=== PATIENT | female | born 1960 | race Caucasian/White ===

== ENCOUNTER → 2016-12-15 | Outpatient (CLI) | payer OTHER ==
[~2016-12-15] MED LIST: ASPI325T PO; BACT800T5 PO; CIPR500T89 PO; COLA100C PO; DEPA500T2 PO; FAMO1TAB11 PO; GABA-279 PO; GABA100C PO; LEVO150T42 PO; LORA10TA2 PO; METAMUCIL; METR500T10 PO; MILKSUS PO; NEUR100C PO; NORT10CA2 PO; NORT25CA2; NORT25CA2 PO; NYSTATIN; No Historical Meds; ONDA4TAB6 PO; PAME50CA PO; PERC5TAB6 PO; PERCOCET PO; PHEN200T14 PO; PRED20TA PO; SENO8.6T5; SYNT125T PO; TUMS500C PO; TYLE325T5 PO; VICO5TAB
[2016-12-15 18:11] LABS: ALBUMIN 3.7 GM/DL (3.2-5.2); ALBUMIN/GLOBULIN RATIO 1.16 (1.00-1.93); ALKALINE PHOSPHATASE 120 U/L (45-117); ALT/SGPT 36 U/L (12-78); ANION GAP 8 MEQ/L (8-16); AST/SGOT 19 U/L (15-37); BILIRUBIN,TOTAL 0.3 MG/DL (0.2-1.0); BLOOD UREA NITROGEN 9 MG/DL (7-18); CALCIUM LEVEL 8.7 MG/DL (8.5-10.1); CARBON DIOXIDE LEVEL 30 MEQ/L (21-32); CHLORIDE LEVEL 108 MEQ/L (98-107); CREATININE FOR GFR 0.76 MG/DL (0.55-1.02); GLOMERULAR FILTRATION RATE > 60.0 (>51); GLUCOSE, FASTING 74 MG/DL (70-105); POTASSIUM SERUM 3.9 MEQ/L (3.5-5.1); SODIUM LEVEL 146 MEQ/L (136-145); TOTAL PROTEIN 6.9 GM/DL (6.4-8.2)
[2016-12-15 18:22] LABS: FOLATE 7.6 NG/ML (>5.4); VITAMIN B12 LEVEL 582 PG/ML (247-911)
[2016-12-15 19:48] LABS: BASO # 0.1 K/mm3 (0.0-0.2); BASO % 1.1 % (0.0-1.0); EOS # 0.1 K/mm3 (0.0-0.50); EOS % 2.3 % (0.0-3.0); LARGE UNSTAINED CELL # 0.1 K/mm3 (0.0-0.4); LARGE UNSTAINED CELL % 1.4 % (0.0-4.0); LYMPH % 29.4 % (24.0-44.0); MEAN CORPUSCULAR HEMOGLOBIN 33.2 pg (27.0-33.0); MEAN CORPUSCULAR HGB CONC 32.1 g/dl (32.0-36.5); MEAN CORPUSCULAR VOLUME 103.6 fl (80.0-96.0); MONO # 0.4 K/mm3 (0.0-0.8); MONO % 5.8 % (0.0-5.0); NEUTROPHILS # 3.8 K/mm3 (1.8-7.7); PLATELET COUNT, AUTOMATED 202 k/mm3 (150-450); RED CELL DISTRIBUTION WIDTH 12.2 % (11.5-14.5); WHITE BLOOD COUNT 6.4 K/mm3 (4.0-10.0)
[2016-12-15 22:19] LABS: ERYTHROCYTE SEDIMENTATION RATE 3 mm/hr (0-30)
[2016-12-17 11:05] LABS: ALBUMIN 4.19 GM/DL (3.29-5.55); ALBUMIN % 60.7 % (55.8-66.1); GAMMA GLOBULIN % 12.6 % (11.1-18.8)
[2016-12-17 14:16] LABS: Lyme Disease IgG/IgM Antibodie <0.91 ISR (0.00-0.90); Lyme Disease IgM Ab Quantitati <0.80 index (0.00-0.79); SJOGREN'S ANTI SS-A <0.2 AI (0.0-0.9); SJOGREN'S ANTI SS-B 0.3 AI (0.0-0.9)
== END ==
LOC: M WUC 12:25
PROVIDERS: ATTEND Physician Assistant Medical
DX: R51 Headache (principal); M79.1 Myalgia; R20.2 Paresthesia of skin

== ENCOUNTER → 2016-12-15 | Outpatient (REF) | payer OTHER | LOC: M LAB REF 12:53 | PROVIDERS: ATTEND Otolaryngology | DX: J31.2 Chronic pharyngitis (principal) ==

== ENCOUNTER → 2017-05-18 | Outpatient (CLI) | payer OTHER ==
[~2017-05-18] MED LIST changes: +CIPR-249 PO; -CIPR500T89 PO; -COLA100C PO; +COLA100C5 PO; +METR1TAB66 PO; -METR500T10 PO; +PERC5TAB12 PO; -PERC5TAB6 PO; +PHEN-501 PO; -PHEN200T14 PO
[2017-05-18 09:13] LABS: BASO % 0.7 % (0.0-1.0); EOS # 0.2 K/mm3 (0.0-0.50); LYMPH # 2.2 K/mm3 (1.5-4.5); LYMPH % 31.7 % (24.0-44.0); MEAN CORPUSCULAR HEMOGLOBIN 34.5 pg (27.0-33.0); MEAN CORPUSCULAR HGB CONC 34.3 g/dl (32.0-36.5); MEAN CORPUSCULAR VOLUME 100.7 fl (80.0-96.0); MONO # 0.4 K/mm3 (0.0-0.8); MONO % 5.9 % (0.0-5.0); NEUTROPHILS # 3.9 K/mm3 (1.8-7.7); NEUTROPHILS % 56.8 % (36.0-66.0); RED CELL DISTRIBUTION WIDTH 12.6 % (11.5-14.5); WHITE BLOOD COUNT 6.8 K/mm3 (4.0-10.0)
[2017-05-18 09:55] LABS: ALBUMIN 3.3 GM/DL (3.2-5.2); ALBUMIN/GLOBULIN RATIO 0.94 (1.00-1.93); ALKALINE PHOSPHATASE 106 U/L (45-117); ALT/SGPT 18 U/L (12-78); ANION GAP 9 MEQ/L (8-16); AST/SGOT 12 U/L (15-37); BILIRUBIN,TOTAL 0.3 MG/DL (0.2-1.0); BLOOD UREA NITROGEN 10 MG/DL (7-18); CALCIUM LEVEL 8.5 MG/DL (8.5-10.1); CARBON DIOXIDE LEVEL 30 MEQ/L (21-32); CHLORIDE LEVEL 105 MEQ/L (98-107); CHOLESTEROL LEVEL 219 MG/DL (<200); CREATININE FOR GFR 0.79 MG/DL (0.55-1.02); GLOMERULAR FILTRATION RATE > 60.0 (>51); GLUCOSE, FASTING 92 MG/DL (70-105); POTASSIUM SERUM 3.8 MEQ/L (3.5-5.1); SODIUM LEVEL 144 MEQ/L (136-145); TOTAL PROTEIN 6.8 GM/DL (6.4-8.2); TRIGLYCERIDES LEVEL 95 MG/DL (<150)
== END ==
LOC: M WUC 08:05
PROVIDERS: ATTEND Physician Assistant Medical
DX: E78.2 Mixed hyperlipidemia (principal); E55.9 Vitamin D deficiency, unspecified; E03.9 Hypothyroidism, unspecified

== ENCOUNTER → 2017-06-02 | Outpatient (REF) | payer OTHER | LOC: M LAB REF 13:13 | PROVIDERS: ATTEND Surgery | DX: D22.4 Melanocytic nevi of scalp and neck (principal) ==

== ENCOUNTER → 2017-09-29 | Outpatient (CLI) | payer MEDICARE, OTHER ==
[2017-09-29 11:55] LABS: BASO # 0.1 10^3/uL (0.0-0.2); EOS # 0.2 10^3/uL (0.0-0.50); EOS % 2.2 % (0.0-3.0); HEMATOCRIT 49.5 % (36.0-47.0); HEMOGLOBIN 16.4 g/dl (12.0-16.0); IMMATURE GRANULOCYTE % 0.3 % (0-0); LYMPH # 2.5 10^3/uL (1.5-4.5); MEAN CORPUSCULAR HEMOGLOBIN 32.9 pg (27.0-33.0); MEAN CORPUSCULAR HGB CONC 33.1 g/dl (32.0-36.5); MEAN CORPUSCULAR VOLUME 99.4 fl (80.0-96.0); MONO # 0.6 10^3/uL (0.0-0.8); MONO % 7.5 % (0.0-5.0); NEUTROPHILS # 4.4 10^3/uL (1.8-7.7); PLATELET COUNT, AUTOMATED 201 10^3/uL (150-450); RED BLOOD COUNT 4.98 10^6/uL (4.00-5.40); RED CELL DISTRIBUTION WIDTH 12.5 % (11.5-14.5); WHITE BLOOD COUNT 7.7 10^3/uL (4.0-10.0)
[2017-09-29 12:23] LABS: ALBUMIN 3.5 GM/DL (3.2-5.2); ALBUMIN/GLOBULIN RATIO 1.06 (1.00-1.93); ALKALINE PHOSPHATASE 95 U/L (45-117); ALT/SGPT 17 U/L (12-78); ANION GAP 8 MEQ/L (8-16); AST/SGOT 12 U/L (7-37); BILIRUBIN,TOTAL 0.3 MG/DL (0.2-1.0); BLOOD UREA NITROGEN 10 MG/DL (7-18); CALCIUM LEVEL 8.6 MG/DL (8.5-10.1); CARBON DIOXIDE LEVEL 29 MEQ/L (21-32); CHLORIDE LEVEL 106 MEQ/L (98-107); CHOLESTEROL LEVEL 233 MG/DL (<200); CHOLESTEROL RISK RATIO 4.017 (<5); CREATININE FOR GFR 0.58 MG/DL (0.55-1.02); GLOMERULAR FILTRATION RATE > 60.0 (>51); GLUCOSE, FASTING 83 MG/DL (70-105); HDL CHOLESTEROL 58 MG/DL (>40); NON-HDL-C 175 MG/DL; POTASSIUM SERUM 3.8 MEQ/L (3.5-5.1); SODIUM LEVEL 143 MEQ/L (136-145); T UPTAKE 34 % (30-39); THYROXINE (T4) 10.7 UG/DL (4.5-12.0); TOTAL PROTEIN 6.8 GM/DL (6.4-8.2); TRIGLYCERIDES LEVEL 120 MG/DL (<150)
== END ==
LOC: M WUC 09:49
DX: E03.9 Hypothyroidism, unspecified (principal); E78.2 Mixed hyperlipidemia; E55.9 Vitamin D deficiency, unspecified
CPT/HCPCS: 84443

== ENCOUNTER → 2018-04-14 | Outpatient (CLI) | payer MEDICARE, MEDICAID, OTHER | LOC: M RAD 15:19 | DX: R60.0 Localized edema (principal); M25.461 Effusion, right knee | CPT/HCPCS: 93971 ==

== ENCOUNTER → 2018-07-13 | Outpatient (CLI) | payer MEDICARE, MEDICAID ==
[2018-07-13 13:52] LABS: BASO # 0.1 10^3/uL (0.0-0.2); BASO % 1.3 % (0.0-1.0); EOS # 0.2 10^3/uL (0.0-0.50); EOS % 2.8 % (0.0-3.0); HEMATOCRIT 50.5 % (36.0-47.0); HEMOGLOBIN 16.3 g/dl (12.0-15.5); IMMATURE GRANULOCYTE % 0.3 % (0-3.0); LYMPH # 2.3 10^3/uL (1.5-4.5); MEAN CORPUSCULAR HEMOGLOBIN 32.9 pg (27.0-33.0); MEAN CORPUSCULAR HGB CONC 32.3 g/dl (32.0-36.5); MEAN CORPUSCULAR VOLUME 101.8 fl (80.0-96.0); MONO # 0.6 10^3/uL (0.0-0.8); MONO % 9.6 % (0.0-5.0); PLATELET COUNT, AUTOMATED 206 10^3/uL (150-450); RED BLOOD COUNT 4.96 10^6/uL (4.00-5.40); RED CELL DISTRIBUTION WIDTH 13.1 % (11.5-14.5); WHITE BLOOD COUNT 6.2 10^3/uL (4.0-10.0)
[2018-07-13 14:10] LABS: ESTIMATED AVERAGE GLUCOSE 111 MG/DL (60-110); HEMOGLOBIN A1c 5.5 %
[2018-07-13 14:12] LABS: ALBUMIN 3.5 GM/DL (3.2-5.2); ALBUMIN/GLOBULIN RATIO 1.06 (1.00-1.93); ALKALINE PHOSPHATASE 115 U/L (45-117); ALT/SGPT 14 U/L (12-78); ANION GAP 6 MEQ/L (8-16); AST/SGOT 7 U/L (7-37); BILIRUBIN,TOTAL 0.2 MG/DL (0.2-1.0); BLOOD UREA NITROGEN 8 MG/DL (7-18); CALCIUM LEVEL 8.9 MG/DL (8.5-10.1); CARBON DIOXIDE LEVEL 29 MEQ/L (21-32); CHLORIDE LEVEL 108 MEQ/L (98-107); CHOLESTEROL LEVEL 242 MG/DL (<200); CHOLESTEROL RISK RATIO 6.368 (<5); CREATININE FOR GFR 0.68 MG/DL (0.55-1.30); GLOMERULAR FILTRATION RATE > 60.0 (>51); GLUCOSE, FASTING 87 MG/DL (70-100); HDL CHOLESTEROL 38 MG/DL (>40); LDL CHOLESTEROL 161 MG/DL (<100); NON-HDL-C 204 MG/DL; POTASSIUM SERUM 4.1 MEQ/L (3.5-5.1); PTH INTACT 70.8 PG/ML (18.5-88.0); SODIUM LEVEL 143 MEQ/L (136-145); TOTAL 25(OH) VITAMIN D 34.1 NG/ML (30.0-100.0); TOTAL PROTEIN 6.8 GM/DL (6.4-8.2); TRIGLYCERIDES LEVEL 213 MG/DL (<150); VALPROIC ACID (DEPAKOTE) 51.4 UG/ML (50.0-100.0)
== END ==
LOC: M WUC 11:18
DX: E55.9 Vitamin D deficiency, unspecified (principal); Z13.228 Encounter for screening for other metabolic disorders; E03.9 Hypothyroidism, unspecified; E78.5 Hyperlipidemia, unspecified; Z79.899 Other long term (current) drug therapy
CPT/HCPCS: 84443

== ENCOUNTER → 2018-07-20 | Outpatient (CLI) | payer MEDICARE, MEDICAID | LOC: M RAD 16:07 | DX: Z12.2 Encounter for screening for malignant neoplasm of respiratory organs (principal); F17.210 Nicotine dependence, cigarettes, uncomplicated | CPT/HCPCS: G0297 ==

== ENCOUNTER → 2018-09-17 | Outpatient (CLI) | payer MEDICARE, MEDICAID ==
[~2018-09-17] MED LIST changes: +GABA-1171 PO; -GABA-279 PO; +LORA-243 PO; -LORA10TA2 PO; +METR-201 PO; -METR1TAB66 PO; +MILK120011 PO; -MILKSUS PO; +PROHANCE 279.3MG/ML 15ML VIAL (A9576) As Ordered ONE; +PROHANCE 279.3MG/ML 5ML VIAL (A9576) As Ordered ONE
--- NOTE | 2018-09-22 10:02 | REP ---
MRI RIGHT KNEE WITH AND WITHOUT CONTRAST: TECHNIQUE: Multiple sequences obtained in the axial, coronal, and sagittal planes prior to and following the intravenous administration of 16 mL ProHance. Complex tear is noted of the body and posterior horn of the medial meniscus. The lateral meniscus appears in tact. The cruciate and collateral ligaments are intact. The extensor mechanism is intact. There is moderate chondromalacia of the lateral patellar facet with associated to moderate subchondral marrow edema. There is mild chondromalacia of the medial patellar facet. There is moderate diffuse chondromalacia of the medial compartment with mild diffuse chondromalacia in the lateral joint compartment. There is a small joint effusion. There is a suprapatellar plica. Oval, mildly lobulated, well defined bone lesion is seen in the anterior aspect of the proximal tibia in a subcortical location. This measures 1.4 x 0.8 x 0.8 cm. There are areas of low and high signal on T2-weighted images. The lesion does not significantly enhance. This is consistent with a benign lesion, possibly enchondroma or benign cortical fibrous lesion. IMPRESSION: Complex tear body and posterior horn of the medial meniscus. 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 There is mild to moderate subchondral marrow edema of the lateral patellar facet. Mild to moderate joint effusion. Suprapatellar plica. Benign bone lesion in the proximal tibia anteriorly. No other areas of suspicious enhancement with no other bone lesion or soft tissue mass identified. Electronically Signed by Deniz Foley MD 09/22/2018 12:53 P
== END ==
LOC: M RAD 16:44
PROVIDERS: ATTEND Orthopaedic Surgery
DX: C40.21 Malignant neoplasm of long bones of right lower limb (principal)
CPT/HCPCS: 73723; A9576

== ENCOUNTER → 2018-11-26 | Outpatient (REF) | payer MEDICARE, MEDICAID ==
[~2018-11-26] MED LIST changes: -PROHANCE 279.3MG/ML 15ML VIAL (A9576) As Ordered ONE; -PROHANCE 279.3MG/ML 5ML VIAL (A9576) As Ordered ONE
[2018-11-26 14:05] LABS: BASO # 0.1 10^3/uL (0.0-0.2); BASO % 1.2 % (0.0-1.0); EOS # 0.1 10^3/uL (0.0-0.50); EOS % 2.2 % (0.0-3.0); HEMATOCRIT 50.6 % (36.0-47.0); HEMOGLOBIN 16.4 g/dl (12.0-15.5); LYMPH # 2.2 10^3/uL (1.5-4.5); LYMPH % 34.4 % (24.0-44.0); MEAN CORPUSCULAR HEMOGLOBIN 33.1 pg (27.0-33.0); MEAN CORPUSCULAR HGB CONC 32.4 g/dl (32.0-36.5); MONO # 0.5 10^3/uL (0.0-0.8); MONO % 8.4 % (0.0-5.0); NEUTROPHILS # 3.5 10^3/uL (1.8-7.7); NEUTROPHILS % 53.6 % (36.0-66.0); PLATELET COUNT, AUTOMATED 172 10^3/uL (150-450); RED BLOOD COUNT 4.96 10^6/uL (4.00-5.40); WHITE BLOOD COUNT 6.5 10^3/uL (4.0-10.0)
[2018-11-26 14:25] LABS: HEMOGLOBIN A1c 5.4 %
[2018-11-26 14:42] LABS: ALBUMIN 3.4 GM/DL (3.2-5.2); ALT/SGPT 17 U/L (12-78); BILIRUBIN,TOTAL 0.4 MG/DL (0.2-1.0); BLOOD UREA NITROGEN 8 MG/DL (7-18); CALCIUM LEVEL 8.1 MG/DL (8.5-10.1); CARBON DIOXIDE LEVEL 29 MEQ/L (21-32); CHLORIDE LEVEL 107 MEQ/L (98-107); CHOLESTEROL LEVEL 163 MG/DL (<200); CHOLESTEROL RISK RATIO 3.326 (<5); CPK CREATINE PHOSPHOKINASE 75 U/L (26-192); CREATININE FOR GFR 0.54 MG/DL (0.55-1.30); FREE T4 1.14 NG/DL (0.76-1.46); GLOMERULAR FILTRATION RATE > 60.0 (>51); GLUCOSE, FASTING 76 MG/DL (70-100); HDL CHOLESTEROL 49 MG/DL (>40); LDL CHOLESTEROL 93 MG/DL (<100); LIPASE 123 U/L (73-393); MB/CK RELATIVE INDEX 1.33 (< OR =4); NON-HDL-C 114 MG/DL; POTASSIUM SERUM 3.9 MEQ/L (3.5-5.1); PTH INTACT 69.4 PG/ML (18.5-88.0); SODIUM LEVEL 144 MEQ/L (136-145); TOTAL 25(OH) VITAMIN D 34.4 NG/ML (30.0-100.0); TOTAL PROTEIN 6.8 GM/DL (6.4-8.2); TRIGLYCERIDES LEVEL 107 MG/DL (<150)
== END ==
LOC: M SFHCPLAZ 11:17
PROVIDERS: ATTEND Nurse Practitioner Family
DX: R56.9 Unspecified convulsions (principal); E03.9 Hypothyroidism, unspecified; E78.5 Hyperlipidemia, unspecified; E55.9 Vitamin D deficiency, unspecified; J44.9 Chronic obstructive pulmonary disease, unspecified; R19.8 Other specified symptoms and signs involving the digestive system and abdomen

== ENCOUNTER → 2018-11-29 | Outpatient (CLI) | payer MEDICARE, MEDICAID ==
--- NOTE | 2018-11-29 14:14 | REP ---
KUB: Two views. History: Pain. Comparison study: November 14, 2014. Findings: Bowel gas pattern is unremarkable. Psoas margins and flank stripes are intact. No mass, organomegaly, or pathologic calcification is seen. Impression: Unremarkable KUB. Normal bowel gas pattern. Electronically Signed by Marcelino Romero MD 11/29/2018 03:22 P
== END ==
LOC: M WUC 13:24
PROVIDERS: ATTEND Nurse Practitioner Family
DX: R10.9 Unspecified abdominal pain (principal)

== ENCOUNTER → 2018-12-02 | Outpatient (CLI) | payer MEDICARE, MEDICAID ==
[~2018-12-02] MED LIST changes: +GASTROGRAFIN SOLUTION 30ML (Q9963) As Ordered ONE; +ISOVUE-370 76% 100ML VIAL (Q9967) As Ordered ONE
--- NOTE | 2018-12-02 16:58 | REP ---
CT abdomen and pelvis without and with IV contrast: With oral contrast. History: Left-sided abdomen pain. Comparison CT study November 13, 2014. CT contrast dose: 100 ml of intravenous Isovue 370. CT findings: Preliminary hearing instrument specialist radiograph is unremarkable. The lung bases are essentially clear on axial CT images. No pleural effusion is seen. There is some coronary artery vascular calcification. The liver and the spleen are normal in size homogeneous in texture. No adrenal lesion is seen. No pancreatic abnormality is observed. The kidneys enhance symmetrically. There are small cortical cysts in the right kidney. The largest of these is at the lower pole measuring 1.4 cm. There is focal cortical scarring affecting the right kidney as well. These findings are unchanged. No retroperitoneal mass or adenopathy is observed. No pelvic mass or adenopathy is seen. The uterus is surgically absent. No abdominal wall defect is seen. No bony lesion is appreciated. There are degenerative changes in the lumbar spine. Small and large intestinal bowel loops are unremarkable in the abdomen and pelvis. Urinary bladder is intact. Impression: Renal cortical scarring right kidney. Small right renal cysts. Status post hysterectomy. Otherwise unremarkable CT abdomen and pelvis. Electronically Signed by Marcelino Romero MD 12/02/2018 05:14 P
== END ==
LOC: M RAD 13:42
PROVIDERS: ATTEND Nurse Practitioner Family
DX: R10.9 Unspecified abdominal pain (principal); N28.1 Cyst of kidney, acquired; Z90.710 Acquired absence of both cervix and uterus
CPT/HCPCS: 74178; Q9963; Q9967

== ENCOUNTER → 2018-12-13 | Outpatient (REF) | payer MEDICARE, MEDICAID ==
[~2018-12-13] MED LIST changes: -GASTROGRAFIN SOLUTION 30ML (Q9963) As Ordered ONE; -ISOVUE-370 76% 100ML VIAL (Q9967) As Ordered ONE
== END ==
LOC: M SFHCPLAZ 13:45
PROVIDERS: ATTEND Nurse Practitioner Family
DX: R10.13 Epigastric pain (principal)

== ENCOUNTER → 2018-12-13 | Outpatient (CLI) | payer MEDICARE, MEDICAID ==
[~2018-12-13] MED LIST changes: -METR-201 PO; +METR-265 PO; +OXYC1TAB23 PO; -PERCOCET PO
--- NOTE | 2018-12-13 16:30 | REP ---
Low-dose noncontrast chest CT: Screening exam: History: Nicotine dependence. Comparison screening chest CT study July 20, 2018. CT findings: Mild bibasilar fibrotic changes are again noted. Mild biapical pleuroparenchymal scarring is seen unchanged. No significant pulmonary nodule is appreciated. Impression: Stable low lung rads category one study. Recommend repeat screening study in 1 year. Electronically Signed by Marcelino Romero MD 12/13/2018 04:55 P
== END ==
LOC: M RAD 10:53
PROVIDERS: ATTEND Nurse Practitioner Family
DX: Z12.2 Encounter for screening for malignant neoplasm of respiratory organs (principal); J98.4 Other disorders of lung; Z87.891 Personal history of nicotine dependence
CPT/HCPCS: 36415; 86677; G0297; G0463

== ENCOUNTER 2018-12-30 21:07 | Emergency (ER) | payer MEDICAID, MEDICARE ==
[~2018-12-30] VITALS: Ht 175.3 cm; Wt 79.0 kg
[2018-12-30] MEDS ORDERED: DILUENT IV ONE (21:30)
[2018-12-30] MEDS ORDERED: NS IV ONE (21:30)
[2018-12-30 21:58] LABS: BASO % 0.3 % (0.0-1.0); EOS # 0.1 10^3/uL (0.0-0.50); EOS % 0.5 % (0.0-3.0); HEMATOCRIT 50.4 % (36.0-47.0); HEMOGLOBIN 17.1 g/dl (12.0-15.5); LYMPH # 1.2 10^3/uL (1.5-4.5); LYMPH % 10.6 % (24.0-44.0); MEAN CORPUSCULAR HEMOGLOBIN 33.3 pg (27.0-33.0); MEAN CORPUSCULAR HGB CONC 33.9 g/dl (32.0-36.5); MEAN CORPUSCULAR VOLUME 98.2 fl (80.0-96.0); MONO # 0.6 10^3/uL (0.0-0.8); MONO % 5.3 % (0.0-5.0); NEUTROPHILS # 9.6 10^3/uL (1.8-7.7); NEUTROPHILS % 82.4 % (36.0-66.0); PLATELET COUNT, AUTOMATED 181 10^3/uL (150-450); RED BLOOD COUNT 5.13 10^6/uL (4.00-5.40); WHITE BLOOD COUNT 11.6 10^3/uL (4.0-10.0)
[2018-12-30 22:03] LABS: VENOUS BASE EXCESS 0.9 (-2.0-2.0); VENOUS HCO3 19.6 MEQ/L (23.0-27.0); VENOUS O2 SATURATION 97.9 % (60.0-80.0); VENOUS PARTIAL PRESSURE CO2 20.8 mmHg (38.0-50.0); VENOUS PARTIAL PRESSURE O2 91.4 mmHg (30.0-50.0); VENOUS PH 7.593 UNITS (7.330-7.430); VENOUS STANDARD HCO3 25.3 MEQ/L; VENOUS TOTAL CO2 20.3 MEQ/L (24.0-28.0)
[2018-12-30 22:07] LABS: INR 0.98; PROTHROMBIN TIME 13.1 SECONDS (12.1-14.4)
[2018-12-30 22:10] LABS: D-DIMER QUANT 299.46 ng/ml (<500)
[2018-12-30 22:21] LABS: ALBUMIN 3.5 GM/DL (3.2-5.2); ALT/SGPT 17 U/L (12-78); BILIRUBIN,DIRECT < 0.1 MG/DL (0.0-0.2); BILIRUBIN,TOTAL 0.4 MG/DL (0.2-1.0); BLOOD UREA NITROGEN 10 MG/DL (7-18); CALCIUM LEVEL 8.5 MG/DL (8.5-10.1); CARBON DIOXIDE LEVEL 27 MEQ/L (21-32); CHLORIDE LEVEL 108 MEQ/L (98-107); CK-MB VALUE MASS < 1.0 NG/ML (<3.6); CPK CREATINE PHOSPHOKINASE 54 U/L (26-192); CREATININE FOR GFR 0.59 MG/DL (0.55-1.30); GLOMERULAR FILTRATION RATE > 60.0 (>51); GLUCOSE, FASTING 85 MG/DL (70-100); INFLUENZA A AMPLIFICATION NEGATIVE (NEGATIVE); INFLUENZA B AMPLIFICATION NEGATIVE (NEGATIVE); MB/CK RELATIVE INDEX 1.85 (< OR =4); NT-PRO BNP 508 PG/ML (<125); POTASSIUM SERUM 3.1 MEQ/L (3.5-5.1); SODIUM LEVEL 142 MEQ/L (136-145); TOTAL PROTEIN 6.7 GM/DL (6.4-8.2); TROPONIN I < 0.02 NG/ML (< 0.10)
--- NOTE | 2018-12-30 22:27 | REP ---
Clinical: Chest pain . Comparison: 09/29/2017 . Findings: The mediastinum and cardiac silhouette are stable and within normal limits for portable technique. The lung higgins demonstrate stable chronic changes without acute consolidation, effusion, or pneumothorax. Skeletal structures are intact. Impression: No acute cardiopulmonary process appreciated. Electronically Signed by Omkar Her MD 12/30/2018 10:19 P
[2018-12-30] MEDS ORDERED: METOCLOPRAMIDE INJ 10MG/2ML VIAL (J2765) As Ordered ONE (23:19)
[2018-12-30] MEDS ORDERED: METOCLOPRAMIDE INJ 10MG/2ML VIAL (J2765) IV ONE (23:30)
--- NOTE | 2018-12-31 00:08 | REP ---
Clinical: Cough. Technique: Axial noncontrast images from the thoracic inlet to the upper abdomen with coronal and sagittal re-formations. Findings: Bilateral lung higgins are relatively well aerated and clear. No focal consolidation or obvious mass lesion. No pleural effusion. No pneumothorax. Tracheobronchial tree is patent. Mediastinum demonstrates relatively normal thoracic aorta, pulmonary vasculature and heart/pericardium. Osseous structures are without focal abnormality. Impression: Normal noncontrast chest CT. Electronically Signed by Omkar Her MD 12/30/2018 11:59 P
--- NOTE | 2018-12-31 00:10 | REP ---
Clinical: Abdominal pain. Technique: Axial noncontrast images from the lung bases to the pubic symphysis with coronal and sagittal re-formations. Comparison: 12/02/2018. Findings: Lung bases are clear. Visualized heart and pericardium normal. Liver, spleen, pancreas, gallbladder, bilateral adrenal glands and kidneys are normal for noncontrast evaluation. The enteric system is without obstruction. Fluid-filled small large bowel is nonspecific. No obvious acute enteric inflammatory process. Pelvis demonstrates normal bladder and evidence for prior hysterectomy. No ascites. No free air. No adenopathy. Abdominal aorta demonstrates atherosclerotic changes without aneurysm. Musculoskeletal structures without focal osseous abnormality. Impression: No obvious acute abdominopelvic pathology appreciated. Electronically Signed by Omkar Her MD 12/31/2018 12:02 A
[2018-12-31 00:14] LABS: FREE T4 1.19 NG/DL (0.76-1.46)
[2018-12-31 01:15] VITALS: BP 164/75
--- NOTE | 2018-12-31 20:15 | ECGEPIP ---
Stationary ECG Study [facility] - ED Test Date: 2018-12-30 Pat Name: RAFITA MARSHALL Department: Room: - Gender: F Cane Splicer: pmo : [id number] Requested By: RAÚL Tirado Order Number: [id number] Reading MD: Raúl Padilla Measurements Intervals [place] Rate: 71 P: 56 ID: [id number] QRS: 78 QRSD: 78 T: 31 QT: 398 QTc: 434 Interpretive Statements SINUS RHYTHM NONSPECIFIC ST & T-WAVE ABNORMALITY Electronically Signed On 12-31-2018 20:15:35 EDT by Raúl Padilla
== END 2018-12-31 01:40 | disposition left against medical advice (07) ==
LOC: M ED 21:07
DX: G43.A1 Cyclical vomiting, in migraine, intractable (principal); R94.31 Abnormal electrocardiogram [ECG] [EKG]; E03.9 Hypothyroidism, unspecified; F17.200 Nicotine dependence, unspecified, uncomplicated; Z79.899 Other long term (current) drug therapy; Z86.73 Personal history of transient ischemic attack (TIA), and cerebral infarction without residual deficits; Z86.69 Personal history of other diseases of the nervous system and sense organs; Z98.890 Other specified postprocedural states; Z91.041 Radiographic dye allergy status; Z91.040 Latex allergy status; Z88.5 Allergy status to narcotic agent
CPT/HCPCS: 71045; 71250; 74176; 80048; 80076; 82550; 82553; 82803; 83880; 84439; 84443; 84484; 85025; 85379; 85610; 87040; 87502; 93005; 93041; 96374; 99285; J2765

== ENCOUNTER → 2019-01-14 | Outpatient (CLI) | payer MEDICARE, MEDICAID ==
[~2019-01-14] MED LIST changes: +E-Z-GAS II EFFERVESCENT PACKET (SODIUM BICARB./CITRIC ACID/SIMETHICONE) As Ordered ONE; +E-Z-HD 98% w/w 340GM SUSP BTL As Ordered ONE; +E-Z-PAQUE 96% w/w SUSP 176GM BTL As Ordered ONE
--- NOTE | 2019-01-14 16:33 | REP ---
UPPER GI AIR CONTRAST AND SMALL BOWEL FOLLOW THROUGH The procedure was performed under the direct supervision of Dr. Romero. The images were reviewed with Dr. Romero The chicle grinder feeder film shows no organomegaly or pathological masses. The intestinal gas pattern is non-specific. Liquid barium and gas producing crystals were given in the erect position as well as liquid barium in the prone oblique position in order to perform a double contrast upper GI examination. Additionally liquid barium was given at the end of the examination in order to perform a small bowel follow through. The oral and pharyngeal stages of deglutition are unremarkable. There are esophageal transport there are tertiary waves demonstrated. There is no esophagitis, stricture or mucosal ring. There is a small sliding-type hiatal hernia. Gastroesophageal reflux is not demonstrated on this examination. The stomach johnston are normally outlined . The rugal folds are smooth and regular. There is no gastritis neoplasm or ulcer disease. The duodenal johnston are normally outlined . The mucosal folds are smooth and regular. There is no duodenitis pancreatitis peptic ulcer disease or neoplasm. The visualized portion of the proximal small bowel appears normal in course and caliber. The barium column was followed through the small bowel to the level of the terminal ileum. Small bowel transit time is approximately 120 minutes . During fluoroscopy gentle palpation shows all loops are freely movable and pliable. There are no fixed or angulated loops. The small bowel mucosal pattern is normal in course and caliber. There is no transition to suggest a partial small-bowel obstruction. Spot filming of the terminal ileum shows it to be unremarkable. Impression: There are tertiary waves. There is a small sliding-type hiatal hernia. Otherwise, unremarkable double contrast upper GI and small bowel follow through examination. 2 minutes of fluoro time was utilized for this procedure. Reviewed by JOHNY Hernandez 01/14/2019 04:14 P Electronically Signed by Marcelino Romero MD 01/14/2019 04:30 P
== END ==
LOC: M RAD 07:10
PROVIDERS: ATTEND Nurse Practitioner Family
DX: K44.9 Diaphragmatic hernia without obstruction or gangrene (principal)

== ENCOUNTER → 2019-01-17 | Outpatient (CLI) | payer MEDICARE, MEDICAID ==
[~2019-01-17] MED LIST changes: -E-Z-GAS II EFFERVESCENT PACKET (SODIUM BICARB./CITRIC ACID/SIMETHICONE) As Ordered ONE; -E-Z-HD 98% w/w 340GM SUSP BTL As Ordered ONE; -E-Z-PAQUE 96% w/w SUSP 176GM BTL As Ordered ONE
[2019-01-17 17:16] LABS: BASO # 0.1 10^3/uL (0.0-0.2); BASO % 1.3 % (0.0-1.0); EOS # 0.2 10^3/uL (0.0-0.50); EOS % 3.1 % (0.0-3.0); HEMATOCRIT 47.9 % (36.0-47.0); HEMOGLOBIN 15.7 g/dl (12.0-15.5); LYMPH # 2.7 10^3/uL (1.5-4.5); MEAN CORPUSCULAR HEMOGLOBIN 33.1 pg (27.0-33.0); MEAN CORPUSCULAR HGB CONC 32.8 g/dl (32.0-36.5); MEAN CORPUSCULAR VOLUME 101.1 fl (80.0-96.0); MONO # 0.6 10^3/uL (0.0-0.8); NEUTROPHILS # 3.2 10^3/uL (1.8-7.7); NEUTROPHILS % 46.3 % (36.0-66.0); PLATELET COUNT, AUTOMATED 252 10^3/uL (150-450); RED BLOOD COUNT 4.74 10^6/uL (4.00-5.40); WHITE BLOOD COUNT 6.8 10^3/uL (4.0-10.0)
[2019-01-17 17:18] LABS: ALBUMIN 3.4 GM/DL (3.2-5.2); ALT/SGPT 15 U/L (12-78); BILIRUBIN,TOTAL 0.3 MG/DL (0.2-1.0); BLOOD UREA NITROGEN 8 MG/DL (7-18); CALCIUM LEVEL 8.5 MG/DL (8.5-10.1); CARBON DIOXIDE LEVEL 29 MEQ/L (21-32); CHLORIDE LEVEL 109 MEQ/L (98-107); CREATININE FOR GFR 0.56 MG/DL (0.55-1.30); GLOMERULAR FILTRATION RATE > 60.0 (>51); GLUCOSE, FASTING 79 MG/DL (70-100); NT-PRO BNP 301 PG/ML (<125); POTASSIUM SERUM 3.5 MEQ/L (3.5-5.1); SODIUM LEVEL 143 MEQ/L (136-145); TOTAL PROTEIN 6.5 GM/DL (6.4-8.2)
== END ==
LOC: M WUC 13:51
PROVIDERS: ATTEND Nurse Practitioner Family
DX: R10.13 Epigastric pain (principal); F17.200 Nicotine dependence, unspecified, uncomplicated

== ENCOUNTER → 2019-02-03 | Outpatient (CLI) | payer MEDICARE, MEDICAID ==
[2019-02-03 16:59] LABS: FREE T4 0.97 NG/DL (0.76-1.46); THYROID STIMULATING HORMONE 13.9 uIU/ML (0.358-3.740)
== END ==
LOC: M WUC 13:34
PROVIDERS: ATTEND Nurse Practitioner Family
DX: E03.9 Hypothyroidism, unspecified (principal)

== ENCOUNTER 2019-02-11 10:00 | Day surgery (SDC) | payer MEDICAID, MEDICARE ==
[~2019-02-11] VITALS: Ht 175.3 cm; Wt 77.1 kg
[~2019-02-11 10:00] MED LIST changes: +BACL10TA2 PO; +BREO1INH INH; +CALCTAB38 PO; +CETI10TA PO; +CETI5SOL3 PO; +DEPA1TAB3 PO; +DEXI60CA2 PO; +LEVO137T2; +MAPA500C PO; +RELP40TA PO; +SUCR1TA PO
[2019-02-11] MEDS ORDERED: NS 1,000 ML IV ONE (10:30)
[2019-02-11] MEDS ORDERED: PROPOFOL 200 MG/20 ML VIAL As Ordered ONE (11:54)
[2019-02-11] MEDS ORDERED: LIDOCAINE 2% INJ 100 MG/5 ML SDV (FOR ANES.) As Ordered ONE (11:54)
--- NOTE | 2019-02-11 12:10 | ROOR ---
Patient Name: Coretta Perry Procedure Date: 02/11/2019 11:34 AM Date of : 1960 Age: 58 Room: [facility] Gender: Female Note Status: Finalized Procedure: Upper GI endoscopy Indications: Epigastric abdominal pain, Abdominal pain in the left upper quadrant, Nausea with vomiting Providers: Gurvinder Gtz MD Referring MD: TRAE BERNARD [facility] TRAE Redmond Requesting Provider: Medicines: Monitored Anesthesia Care Complications: No immediate complications. Procedure: Pre-Anesthesia Assessment: - Prior to the procedure, a History and Physical was performed, and patient medications and allergies were reviewed. The patient is competent. The risks and benefits of the procedure and the sedation options and risks were discussed with the patient. All questions were answered and informed consent was obtained. Patient identification and proposed procedure were verified by the physician, the nurse and the anesthesiologist in the procedure room. Mental Status Examination: alert and oriented. Airway Examination: normal oropharyngeal airway and neck mobility. Respiratory Examination: clear to auscultation. CV Examination: normal. Prophylactic Antibiotics: The patient does not require prophylactic antibiotics. Prior Anticoagulants: The patient has taken no previous anticoagulant or antiplatelet agents. ASA Grade Assessment: III - A patient with severe systemic disease. After reviewing the risks and benefits, the patient was deemed in satisfactory condition to undergo the procedure. The anesthesia plan was to use monitored anesthesia care (MAC). Immediately prior to administration of medications, the patient was re-assessed for adequacy to receive sedatives. The heart rate, respiratory rate, oxygen saturations, blood pressure, adequacy of pulmonary ventilation, and response to care were monitored throughout the procedure. The physical status of the patient was re-assessed after the procedure. The Endoscope was introduced through the mouth, and advanced to the second part of duodenum. The upper GI endoscopy was accomplished without difficulty. The patient tolerated the procedure well. Findings: No gross lesions were noted in the entire esophagus. The Z-line was regular and was found 44 cm from the incisors. Patchy severe inflammation characterized by congestion (edema), erosions, erythema, friability and granularity was found in the gastric body, in the gastric antrum and in the prepyloric region of the stomach. Five biopsies were obtained with cold forceps for histology in the gastric antrum, as well as two biopsies in the gastric body. Verification of patient identification for the specimen was done by the physician and nurse using the patient's name, date and medical record number. Estimated blood loss was minimal. The duodenal bulb and second portion of the duodenum were normal. Biopsies for histology were taken with a cold forceps for evaluation of celiac disease. Impression: - No gross lesions in esophagus. - Z-line regular, 44 cm from the incisors. - Gastritis. - Normal duodenal bulb and second portion of the duodenum. Biopsied. - Biopsies performed in the gastric antrum and in the gastric body. Recommendation: - Patient has a contact number available for emergencies. The signs and symptoms of potential delayed complications were discussed with the patient. Return to normal activities tomorrow. Written discharge instructions were provided to the patient. - Resume previous diet. - Continue present medications. - Await pathology results. - Use Dexilant (dexlansoprazole) 60 mg PO daily. - Repeat upper endoscopy in 3 months to check healing and for surveillance based on pathology results. - Return to GI clinic in [facility] (address [address], [address], [place] [address]) in 4 -- 6 weeks. Please call GI clinic @ [phone] for apppointment date and time. - Further work up for diarrhea and weight loss in GI clinic as outpatient. - Return to primary care physician. Gurvinder Gtz MD Gurvinder Gtz MD 02/11/2019 12:10:15 PM Electronically signed by Gurvinder Gtz MD Number of Addenda: 0 Note Initiated On: 02/11/2019 11:34 AM Estimated Blood Loss: Estimated blood loss was minimal.
[2019-02-11 12:15] VITALS: BP 177/81
== END 2019-02-11 12:32 | disposition home or self-care (01) ==
LOC: M OPP 10:00
PROVIDERS: ATTEND Internal Medicine Gastroenterology
DX: K29.70 Gastritis, unspecified, without bleeding (principal); R10.13 Epigastric pain; R10.12 Left upper quadrant pain; R11.2 Nausea with vomiting, unspecified

== ENCOUNTER → 2019-02-14 | Outpatient (REF) | payer MEDICARE | LOC: M LAB REF 15:52 | PROVIDERS: ATTEND Radiology Diagnostic Radiology | DX: C50.912 Malignant neoplasm of unspecified site of left female breast (principal) ==

== ENCOUNTER → 2019-05-03 | Outpatient (CLI) | payer MEDICARE, MEDICAID ==
[~2019-05-03] MED LIST changes: +ANAS1TAB2 PO; +ASPI81TA85 PO; +ATOR1TAB21 PO; +SERT-138 PO
--- NOTE | 2019-05-04 12:59 | RADONC ---
RADIATION ONCOLOGY NEW PATIENT CONSULTATION DATE: 05/03/2019 DIAGNOSES: Infiltrating ductal carcinoma, grade 2/3 involving eight lesion at the 10 o'clock position. She is status post lumpectomy and lymph node resection. A 3 cm lymph node was positive for infiltrating ductal carcinoma in the left axilla. There was no evidence of any angiolymphatic invasion and no in situ carcinoma. The margins were negative and 1/10 lymph nodes was noted to be present measuring approximately as stated approximately 3 cm. STAGE: Pathologic T1c, N1a (03/27/2019). ECOG PERFORMANCE STATUS: 0. ICD-10 code: C50.912. CHART NUMBER: [id number] HISTORY OF PRESENT ILLNESS: The patient is a 58-year-old female who noted a lump in her left axilla for approximately 4 months prior to her diagnosis. She noted that the mass in the axilla was increasing in size and was becoming somewhat painful to her. Bilateral screening mammography was obtained on 02/07/2019 at [facility] and revealed a 14 x 14 x 11 mm irregular lesion at the 9 o'clock position of the left breast with a small adjacent area just posterior to it measuring 5 mm. In addition, there was a 2.7 x 2.7 cm dense lymph node in the left axilla with a few other lymph nodes showing some fatty change just adjacent to it. These were new finding since the previous mammogram and she underwent a biopsy of the lesion at the 10 o'clock position of the left breast, as well as a core biopsy of the left axillary lymph node on 02/14/2019. Pathology revealed a grade 2 invasive ductal carcinoma with mucinous features, which was ER positive, [place] negative, HER2/adeola negative. The core biopsy of the left axillary lymph node was consistent with metastatic grade 2 invasive ductal carcinoma with mucinous features and no lymphoid tissue was identified. The patient underwent genetic testing and was negative for BRCA1 and BRCA2. She met with Dr. Vines and on exam was describes a mass in the left breast and a palpable large lymph node in the left axilla and was clinically staged [id number] or group stage II A. The final pathology, which was reviewed at [facility], revealed that she did indeed have a positive axillary lymph node for metastatic infiltrating ductal carcinoma, which was ER positive, [place] negative, HER2/adeola negative. A PET scan was ordered and obtained on 02/28/2019 revealing uptake in the left breast mass with an SUV of 8.61 and also uptake in the large left axillary lymph node with an SUV of 14.25. There was not any evidence of other distant metastatic disease. She underwent breast conservation surgery on 03/23/2019 where the primary lesion was identified as measuring 1.7 x 1.3 x 1.2 cm and was noted to be a grade 2 ductal carcinoma with mucinous features with no evidence of lymphovascular invasion. The margins were negative and 1/10 lymph nodes were positive for metastatic disease. The lymph node measured approximately 3 cm with focal invasion into the perinodal fat. She was thusly pathologically staged [id number] for group stage I B, ER positive, [place] negative, HER2/adeola negative. An oncotype DX exam was obtained and revealed a score of 15, which translated to a 14% risk of distant metastatic disease at 9 years and no benefit from chemotherapy. She has met with Dr. Rodriguez, who did not recommend chemotherapy based on oncotype DX course and recommended treatment with Arimidex, which she has started. The patient was referred for radiotherapy. Radiotherapy was recommended and she wished to receive radiotherapy in the [facility] because of its close proximity to where she lives. The patient incidentally has multiple comorbidities, including a history of epilepsy and a stroke at a fairly young age, which left her with left-sided weakness. Adjuvant radiotherapy was definitely recommended for this patient and she comes to us today to discuss the logistics of adjuvant radiotherapy. PAST MEDICAL HISTORY: The patient has a history of a stroke in 2009 resulting in short-term memory loss and left-sided weakness. This weakness causes multiple falls and requires her to be walker dependent. She also has a medical history for coronary artery disease, COPD, fibromyalgia, hyperlipidemia, gastroparesis causing poor p.o. intake with nausea, a history of a myocardial infarction at the age of 28, epileptic seizure disorder. SURGERIES: She had a heart catheterization in September 1970, eye surgery and September 1975, screening mammogram 02/07/2019 and most recent partial mastectomy and lymph node dissection on 02/14/2019. ALLERGIES: CODEINE, LATEX, NATURAL RUBBER. MEDICATIONS: - Arimidex 1 mg tablet - aspirin 81 mg tablet - atorvastatin 20 mg tablets - Breo Ellipta 200 mcg / 25 mcg/ dose powder for inhalation - calcium 600 plus D3 600 mg - cetirizine 10 mg capsules - Dexilant 60 mg capsules delayed release. - eletriptan 40 mg tablets p.r.n. - gabapentin 800 mg tablets in the a.m. and 400 mg in the afternoon and 800 mg in the p.m.. - hydrocodone 5 mg with acetaminophen 325 p.r.n. - levothyroxine 137 mcg tablets one p.o. per day - sertraline 100 mg tablets one p.o. per day - stool softener 100 mg tablets one p.o. q.12 h b.i.d. - sucralfate 1 gram tablet one p.o. four times a day while awake - Ventolin HFA 19 mcg actuation aerosol inhaler p.r.n. FAMILY HISTORY OF CANCER: The patient's grandmother was diagnosed with breast cancer at the age of 45, the patient's aunt was diagnosed with breast cancer, and the patient's uncle was diagnosed with bone cancer. OTHER FAMILY HISTORY: The patient's mother was diagnosed with having a stroke and the father diagnosed with a stroke. SOCIAL HISTORY: Tobacco use, the patient is an every day smoker but has been advised to quit. Alcohol history: She was a heavy alcohol consumer and has consumed other drugs in the past, but currently does not drink nor does she consume other recreational drug intake. GYNECOLOGIC HISTORY: Menarche at the age of 11 years. She was 24 when she had her first and she has been five times but has only one living . REVIEW OF SYSTEMS: RESPIRATORY: She has an occasional cough with some occasional dyspnea on exertion. Denies hemoptysis, hiccups, pleuritic chest pain. Does note occasional wheezing. PSYCHIATRIC: She denies having any delusions or hallucinations or significant mood changes. NEUROLOGIC: She has left-sided weakness secondary to a previous stroke and to a history of epileptic seizure disorder. She denies any disorientation. Does occasionally have dizziness. She has some dysfunction with gait and trips frequently. She denies any headache, insomnia but does note recent memory loss. She denies neuropathy or paralysis. She has a history of seizure disorder and has some weakness in the left leg and arm. She has a previous history of stroke. NECK: Denies masses, muscle weakness significant pain, difficulty with range of motion, but she does note swelling in her left upper extremity since her surgery with some minor pain. MUSCULOSKELETAL: She has a history of arthritis. Denies any bone pain, joint pain, significant muscle weakness or significant problems with a range of motion, although she has minimal difficulty with her left arm and exercises her left arm to increase her range of motion. HEMATOLOGIC: She denies any easy bruising or lymph nodes, although a lymph node was positive in the axilla, which has been subsequently removed. GENITOURINARY: Denies dysuria, frequency genital masses, hematuria, incontinence, nocturia, renal stone disease, sexual dysfunction, urgency, changes in urine color, vaginal discharge or vaginal spotting. GASTROINTESTINAL: Denies changes in her bowel habit. Denies constipation or chronic diarrhea. Denies heartburn, hematemesis, hematochezia, hemorrhoids, melena, GI bleeding, nausea, pain, cramping, early satiety or vomiting. HEENT: Denies ear pain, epistaxis. She does have some esophagitis. Denies hearing dysfunction. She has some dryness of her mouth. Denies oral bleeding otitis, sinusitis, sputum production or significant stomatitis. She sometimes has alteration of her taste but denies tinnitus. CARDIOVASCULAR: She denies any current arrhythmia or chest pain. She does have occasional dyspnea. Denies significant peripheral edema with the exception of her left upper extremity. Denies orthopnea or palpitations. BREASTS: She is healing fairly nicely with regards to her breast incisions but occasionally has left upper extremity swelling and minimal pain. She denies nipple discharge or nipple inversion. PHYSICAL EXAMINATION FINDINGS: O2 saturation 96% on room air. Diastolic 79, systolic 117, respirations 18, pulse 77, temperature 99.2, weight 183.6, height 67.5 inches. HEENT: Normocephalic. EOMs intact. PERRLA. Fundi benign. Oral cavity: Poor dentition. No overt malignancies appreciated in the mucosal areas. Lymphatics: No palpable peripheral lymphadenopathy is appreciated in the cervical, supraclavicular, axillary or inguinal lymph node chains. BREASTS: Status post partial mastectomy and axillary resection. The incisions appear to be healing fairly nicely, although there is a small scab involving the partial mastectomy incision measuring approximately 1.4 cm in length and 1/2 cm in width. No masses were palpable on either breast. Lungs: Clear to auscultation to percussion. Heart: Regular without murmurs. Abdomen: Without evidence of hepatomegaly, masses or deep abdominal tenderness. Extremities: Without cyanosis or clubbing. She has a compressive sleeve involving the left upper extremity to prevent swelling. NEUROLOGIC EXAMINATION: She has some left-sided weakness and a seizure disorder history, as mentioned in the H and P. She does have some issues ambulating. PLAN OF RADIOTHERAPY: We are recommending post lumpectomy, adjuvant radiotherapy to the left breast and regional lymphatics to reduce the local regional relapse. We are recommending a 6-week course of radiotherapy and have discussed the typical acute and long-term side effects, such as skin reaction, poor cosmetic result, as well as potential for radiation pneumonitis and heart damage. We also briefly discuss the possibility of rib pain and fractures. She has agreed to radiotherapy and will initiate her radiotherapy after appropriate simulation. Thank you for referring this very [place] patient to us and allowing us the opportunity of participation in her overall management. Most sincerely, cc: MD Carl Rodriguez, DO [facility]
== END ==
LOC: M ONCR 09:52
PROVIDERS: ATTEND Radiology Radiation Oncology
DX: C50.911 Malignant neoplasm of unspecified site of right female breast (principal)

== ENCOUNTER 2019-05-27 09:27 | Outpatient (RCR) | payer MEDICARE, MEDICAID ==
[2019-05-12 11:24] LABS: HEMATOCRIT 48.6 % (36.0-47.0); HEMOGLOBIN 16.2 g/dl (12.0-15.5); LYMPH % 39.3 % (24.0-44.0); MEAN CORPUSCULAR HGB CONC 33.3 g/dl (32.0-36.5); MEAN CORPUSCULAR VOLUME 102.2 fl (80.0-96.0); NEUTROPHILS # 5.1 10^3/uL (1.8-7.7); NEUTROPHILS % 49.9 % (36.0-66.0); RED BLOOD COUNT 4.76 10^6/uL (4.00-5.40); WHITE BLOOD COUNT 10.3 10^3/uL (4.0-10.0)
--- NOTE | 2019-05-17 08:24 | RADONC ---
RADIATION ONCOLOGY SIMULATION NOTE DATE: 05/12/2019 Mrs. Coretta Perry with a diagnosis of left breast cancer with left axillary involvement is here to undergo her simulation for her proposed radiotherapy treatments. The patient was brought into the simulation room and placed in a supine position where upon an immobilization device was constructed to stabilize the patient physically and to thusly enable day-to-day accuracy of the treatments. She tolerated the fabrication of the immobilization device quite well without significant untoward side effects. Thereafter, 3 mm images were taken through the breast and peripheral lymphatics for future contouring of the planned treatment volume and immediate surrounding critical structures. These contours will aid in our treatment planning process in order to maximize the doses delivered to planned treatment volume and minimize the doses delivered to the regional organs such as lung and heart. She tolerated the entire simulation process quite well with no significant untoward side effects. I was present during the entire process and the patient was sent home in excellent condition. She will return to our clinic after the treatment plan is completed. SHELLIE
--- NOTE | 2019-05-25 06:19 | RADONC ---
RADIATION ONCOLOGY PROGRESS NOTE DATE: 05/23/2019 CHART #: [id number] Ms. Perry was taken to the linear accelerator today and underwent her first fraction of radiation for a dose of 180 cGy to her left breast and supraclavicular areas. The treatment was tolerated without difficulty or discomfort. REVIEW OF SYSTEMS: The patient's review of systems is noncontributory. Denies nausea, vomiting, fevers, chills, night sweats, diplopia, headaches, anxiety or depression, anorexia, weight loss, visual disturbances, chest pain, urinary or bowel difficulties, bone pain, or neurological problems. PHYSICAL EXAMINATION: The patient's skin clearly showed no evidence of radiation change present as this was her first fraction. The remainder of physical exam also remained unchanged. ASSESSMENT: The patient tolerated her first fraction quite well with no difficulties. Radiation will continue as scheduled.
== END 2019-05-28 ==
LOC: M ONCR 09:27
PROVIDERS: ATTEND Radiology Radiation Oncology
DX: C50.312 Malignant neoplasm of lower-inner quadrant of left female breast (principal)

== ENCOUNTER → 2019-06-06 | Outpatient (REF) | payer MEDICARE, MEDICAID ==
[~2019-06-06] MED LIST changes: +DOXY100C37 PO; +NORC1TAB7 PO; +PERC10TA26 PO; +SERT-141 PO; +SILV40CR EXT; +VENTAER INH; +[UNRECOGNIZED DRUG - OTHER]
[2019-06-06 15:58] LABS: BASO # 0.1 10^3/uL (0.0-0.2); BASO % 1.4 % (0.0-1.0); EOS # 0.1 10^3/uL (0.0-0.5); HEMATOCRIT 47.7 % (36.0-47.0); HEMOGLOBIN 15.7 g/dl (12.0-15.5); MEAN CORPUSCULAR HEMOGLOBIN 33.1 pg (27.0-33.0); MEAN CORPUSCULAR HGB CONC 32.9 g/dl (32.0-36.5); MEAN CORPUSCULAR VOLUME 100.6 fl (80.0-96.0); MONO # 0.6 10^3/uL (0.0-0.8); MONO % 9.8 % (0.0-5.0); NEUTROPHILS # 3.6 10^3/uL (1.5-8.5); NEUTROPHILS % 55.6 % (36.0-66.0); PLATELET COUNT, AUTOMATED 176 10^3/uL (150-450); RED BLOOD COUNT 4.74 10^6/uL (4.00-5.40); WHITE BLOOD COUNT 6.4 10^3/uL (4.0-10.0)
[2019-06-06 16:11] LABS: ALBUMIN 3.5 GM/DL (3.2-5.2); ALT/SGPT 13 U/L (12-78); BILIRUBIN,TOTAL 0.3 MG/DL (0.2-1.0); BLOOD UREA NITROGEN 6 MG/DL (7-18); CALCIUM LEVEL 9.2 MG/DL (8.5-10.1); CARBON DIOXIDE LEVEL 31 MEQ/L (21-32); CHLORIDE LEVEL 104 MEQ/L (98-107); CHOLESTEROL LEVEL 174 MG/DL (<200); CHOLESTEROL RISK RATIO 3.163 (<5); CREATININE FOR GFR 0.64 MG/DL (0.55-1.30); GLOMERULAR FILTRATION RATE > 60.0 (>51); GLUCOSE, FASTING 86 MG/DL (70-100); HDL CHOLESTEROL 55 MG/DL (>40); LDL CHOLESTEROL 98 MG/DL (<100); NON-HDL-C 119 MG/DL; POTASSIUM SERUM 4.2 MEQ/L (3.5-5.1); SODIUM LEVEL 142 MEQ/L (136-145); TOTAL PROTEIN 6.4 GM/DL (6.4-8.2); TRIGLYCERIDES LEVEL 105 MG/DL (<150); VALPROIC ACID (DEPAKOTE) 36.7 UG/ML (50.0-100.0)
[2019-06-06 16:22] LABS: HEMOGLOBIN A1c 5.5 %
== END ==
LOC: M SFHCPLAZ 12:44
PROVIDERS: ATTEND Nurse Practitioner Family
DX: R56.9 Unspecified convulsions (principal); E03.9 Hypothyroidism, unspecified; E78.5 Hyperlipidemia, unspecified; E55.9 Vitamin D deficiency, unspecified

== ENCOUNTER → 2019-06-27 | Outpatient (RCR) | payer MEDICARE, MEDICAID ==
--- NOTE | 2019-06-06 10:28 | RADONC ---
RADIATION ONCOLOGY PROGRESS NOTE DATE: 06/06/2019 CHART NUMBER: [id number] PROGRESS NOTE: Coretta Perry with a diagnosis of carcinoma of the left breast is currently receiving local regional radiotherapy via IMRT. Her current dose is 1260 cGy of an anticipated dose of 4680 cGy. She is tolerating her radiation reasonably well with no significant untoward side effects. REVIEW OF SYSTEMS: The patient was largely off last week secondary to her having a seizure. After she has a seizure her sister tells me that she is completely fatigued and they have some other issues about her primary care physician having upped supplemental thyroid medication and other various medical issues which do not necessarily involve her radiation treatments. They are going to see her primary care physician to ask these questions this afternoon. Otherwise, the patient seems to be fairly well recovered and although she is sleepy, she denies any nausea, vomiting, coughing, sputum production or hemoptysis. She also denies skin irritation. Her current dose is 1620 cGy of a proposed 4680 cGy. EXAMINATION FINDINGS: The skin within the irradiated volume shows no evidence of erythema and no focal desquamation. Lymphatics: No palpable peripheral lymphadenopathy is appreciated. Lungs are clear. Heart: Regular. Abdomen: Negative. The remainder of physical examination is unchanged. IMPRESSION: Tolerating therapy well. PLAN: Treatments to continue.
--- NOTE | 2019-06-15 12:49 | RADONC ---
RADIATION ONCOLOGY PROGRESS NOTE DATE: 06/13/2019 CHART #: [id number] Ms. Perry is presently at a dose of 2520 cGy to her left breast and is tolerating treatments quite well at this point with no complaints related to her radiation therapy. She is having no breast or bone pain. She complains of a stomachache after eating a huge bowl of spaghetti last night. REVIEW OF SYSTEMS: The patient's review of systems is noncontributory. Denies nausea, vomiting, fevers, chills, night sweats, diplopia, headaches, anxiety or depression, anorexia, weight loss, visual disturbances, chest pain, urinary or bowel difficulties, bone pain, or neurological problems. PHYSICAL EXAMINATION: The patient's skin is in excellent condition with no evidence of moist or dry desquamation. There is just some minimal erythema present. The remainder of her physical exam remains unchanged. Ms. Perry is tolerating treatments quite well and radiation will continue as scheduled.
--- NOTE | 2019-06-21 10:48 | RADONC ---
RADIATION ONCOLOGY PROGRESS NOTE DATE: 06/20/2019 CHART NUMBER: [id number] PROGRESS NOTE: Ms. Perry is presently at a dose of 3420 cGy to her left breast and is tolerating treatments quite well at this point with no complaints related to her radiation therapy. She is having no breast or bone pain. REVIEW OF SYSTEMS: The patient's review of systems is noncontributory. Denies nausea, vomiting, fevers, chills, night sweats, diplopia, headaches, anxiety or depression, anorexia, weight loss, visual disturbances, chest pain, urinary or bowel difficulties, bone pain, or neurological problems. PHYSICAL EXAMINATION: The patient's skin is in good condition with no evidence of moist or dry desquamation. The remainder of her physical exam remains unchanged. Ms. Perry is tolerating treatments quite well and radiation will continue as scheduled.
--- NOTE | 2019-06-22 12:35 | RADONC ---
RADIATION ONCOLOGY SIMULATION NOTE DATE: 06/21/2019 CHART NUMBER: [id number] SIMULATION NOTE: Ms. Perry was taken to the linear accelerator today for clinical setup of her electron beam boost field. Setup was accomplished without difficulty or discomfort. Radiation treatment planning is underway and radiation treatments will begin subsequently. An immobilization device was created and will be used throughout the course of treatment. It was also created without difficulty or discomfort. I was physically present throughout the course of clinical setup simulation.
[~2019-06-27] MED LIST changes: -DOXY100C37 PO; -NORC1TAB7 PO; -PERC10TA26 PO; -SERT-141 PO; -VENTAER INH; -[UNRECOGNIZED DRUG - OTHER]
--- NOTE | 2019-06-27 10:17 | RADONC ---
RADIATION ONCOLOGY PROGRESS NOTE DATE: 06/27/2019 CHART #: [id number] Ms. Perry is presently at a dose of 4140 cGy to her left breast and was last treated on 06/24/2019. The patient came in today for her treatment and was complaining of breast pain. PHYSICAL EXAMINATION: There is an area of moist desquamation in the upper outer quadrant region. She reports that this is quite tender. The remainder of her physical exam remains unchanged. I had a discussion with this patient and have given her the remainder of this week off for rest. We will reevaluate her on Thursday. She has been given skin care instructions and told to contact our office if she has any difficulties during the week. We will be available to her for anything. In the meantime, she had been doing well and radiation should be able to resume next week or at the latest the following.
== END ==
LOC: M ONCR 05-31 09:28
PROVIDERS: ATTEND Radiology Radiation Oncology
DX: C50.312 Malignant neoplasm of lower-inner quadrant of left female breast (principal)

== ENCOUNTER 2019-07-01 16:03 | Emergency (ER) | payer MEDICARE, MEDICAID ==
[~2019-07-01] VITALS: Ht 170.2 cm; Wt 82.1 kg
[2019-07-01 16:04] VITALS: BP 108/67
[2019-07-01] MEDS ORDERED: VENTAER INH (16:26)
[2019-07-01] MEDS ORDERED: ANAS1TAB2 PO (16:28)
[2019-07-01] MEDS ORDERED: SERT-141 PO (16:30)
[2019-07-01] MEDS ORDERED: [UNRECOGNIZED DRUG - OTHER] (16:31)
[2019-07-01] MEDS ORDERED: NORCO, ANEXSIA 5/325MG TABLET (HYDROcodone/ACETAMINOPHEN) PO ONE (17:30)
[2019-07-01 18:00] LABS: BASO # 0.1 10^3/uL (0.0-0.2); BASO % 0.9 % (0.0-1.0); EOS # 0.2 10^3/uL (0.0-0.5); EOS % 2.6 % (0.0-3.0); HEMATOCRIT 47.5 % (36.0-47.0); HEMOGLOBIN 16.1 g/dl (12.0-15.5); LYMPH # 1.4 10^3/uL (1.5-5.0); LYMPH % 23.3 % (24.0-44.0); MEAN CORPUSCULAR HEMOGLOBIN 34.3 pg (27.0-33.0); MEAN CORPUSCULAR HGB CONC 33.9 g/dl (32.0-36.5); MEAN CORPUSCULAR VOLUME 101.3 fl (80.0-96.0); MONO # 0.7 10^3/uL (0.0-0.8); MONO % 11.6 % (0.0-5.0); NEUTROPHILS # 3.6 10^3/uL (1.5-8.5); NEUTROPHILS % 61.3 % (36.0-66.0); PLATELET COUNT, AUTOMATED 155 10^3/uL (150-450); RED BLOOD COUNT 4.69 10^6/uL (4.00-5.40); WHITE BLOOD COUNT 5.9 10^3/uL (4.0-10.0)
[2019-07-01] MEDS ORDERED: DOXY100C37 PO (18:14)
[2019-07-01] MEDS ORDERED: NORC1TAB7 PO (18:16)
[2019-07-04] MEDS ORDERED: PERC10TA26 PO (10:02)
[2019-07-11] MEDS ORDERED: PERC10TA26 PO (10:00)
== END 2019-07-01 18:38 | disposition home or self-care (01) ==
LOC: M ED 16:03
DX: N61.0 Mastitis without abscess (principal); J44.9 Chronic obstructive pulmonary disease, unspecified; E03.9 Hypothyroidism, unspecified; F33.9 Major depressive disorder, recurrent, unspecified; G47.33 Obstructive sleep apnea (adult) (pediatric); I25.2 Old myocardial infarction; Z79.82 Long term (current) use of aspirin; Z88.5 Allergy status to narcotic agent; Z91.041 Radiographic dye allergy status

== ENCOUNTER → 2019-07-18 | Outpatient (CLI) | payer MEDICARE, MEDICAID ==
[~2019-07-18] MED LIST changes: +DOXY100C37 PO; +NORC1TAB7 PO; +PERC10TA26 PO; +SERT-141 PO; +VENTAER INH; +[UNRECOGNIZED DRUG - OTHER]
[2019-07-18 16:46] LABS: FREE T4 1.14 NG/DL (0.76-1.46); THYROID STIMULATING HORMONE 2.53 uIU/ML (0.358-3.740)
== END ==
LOC: M WUC 11:03
PROVIDERS: ATTEND Nurse Practitioner Family
DX: E03.9 Hypothyroidism, unspecified (principal)

== ENCOUNTER → 2019-07-28 | Outpatient (RCR) | payer MEDICARE, MEDICAID ==
--- NOTE | 2019-07-04 11:06 | RADONC ---
RADIATION ONCOLOGY PROGRESS NOTE DATE: 07/04/2019 CHART NUMBER: [id number] PROGRESS NOTE: Ms. Perry is thus far at a dose of 4140 cGy to her left breast and was last treated on 06/24/2019. She has been on rest. The patient came in today complaining of a great deal of discomfort and pain. There continues to be moist desquamation in the inframammary and axillary regions. She is continuing to use Silvadene as well as an oral antibiotic and Neosporin cream. REVIEW OF SYSTEMS: Review of systems is positive for discomfort and pain over the treated area, which is keeping her awake at night. It is otherwise noncontributory. Denies nausea, vomiting, fevers, chills, night sweats, diplopia, headaches, anxiety or depression, anorexia, weight loss, visual disturbances, chest pain, urinary or bowel difficulties, bone pain, or neurological problems. PHYSICAL EXAMINATION: There is brisk erythema present over the treated breast as well as areas of moist desquamation in the axillary region as well as in the inframammary regions. I see no sign of infection however, and indeed a culture done in the emergency room on 07/01/2019 showed no cells or organisms seen. I have given the patient this week off and have given her a prescription for Percocet. I explained to her that she should start to feel better quite soon and that we will see her again on Thursday. I let her know that I am available to her if she is having any difficulties in the meantime. She has my cell phone number and the number here. I have checked with [facility] as well prior to prescribing her narcotics.
--- NOTE | 2019-07-11 13:40 | RADONC ---
RADIATION ONCOLOGY FOLLOWUP NOTE DATE: 07/11/2019 CHART NUMBER: [id number] FOLLOWUP NOTE: Ms. Perry is thus far at a dose of 4140 cGy to her left breast and was last treated on 06/27/2019. The patient came in today for reevaluation. She reports that she still is in significant pain and has continued moist desquamation, which is improving in the axillary region as well as the inframammary region. She insists that she is not ready at this time to restart radiation. REVIEW OF SYSTEMS: The patient's review of systems is positive for breast pain but is otherwise noncontributory. Denies nausea, vomiting, fevers, chills, night sweats, diplopia, headaches, anxiety or depression, anorexia, weight loss, visual disturbances, chest pain, urinary or bowel difficulties, bone pain, or neurological problems. PHYSICAL EXAMINATION: The patient's breast shows erythema and tanning present. There are large areas of moist desquamation, which are now starting to heal in the axillary and inframammary region. The remainder of her physical exam remains unchanged. Ms. Perry will remain on rest this week. I have given the patient a new prescription for more Percocet to get her through the next week. I let her know that we would be willing to restart her on for two fractions this week if she feels better. We will continue to follow her.
--- NOTE | 2019-07-19 07:58 | RADONC ---
RADIATION ONCOLOGY PROGRESS NOTE DATE: 07/18/2019 CHART #: [id number] Mrs. Perry with a diagnosis of left breast cancer is currently receiving local regional radiotherapy. She has four more treatments to go to the entire breast which will follow by six additional treatments to the lumpectomy scar site. She has been on a brief rest and has been putting on some topical creams to heal an area of desquamation which encompassed approximately 20% of the breast. She claims now that only a small area is still unhealed. She had had a significant amount of discomfort with the area of desquamation, but she feels cream has helped significantly. She has a total of 10 more treatments including the boost area to the lumpectomy site to go to complete her entire prescribed dose of radiation. REVIEW OF SYSTEMS: She denies any nausea, vomiting, coughing, sputum production or hemoptysis. Her energy level is improved and she is able to maintain most of her day-to-day activities without any alteration of her lifestyle. EXAMINATION FINDINGS: The skin within the irradiated volume shows a significant improvement of her skin reaction for which she had been placed on a rest. She now only has a small area of approximately 3 cm that shows moist desquamation with areas of re-epithelialization. For the most part, the area of desquamation is draining very little if at all. The lungs are clear. Heart regular without murmurs. The remainder of the physical examination is unchanged. IMPRESSION: Tolerating therapy reasonably well. The patient was on break because of desquamation; however, after a brief interruption in her therapy the desquamation has almost completely healed and we will reinitiate her entire prescribed dose of radiotherapy. She has ten more treatments to complete her entire treatment. MTDD
--- NOTE | 2019-07-25 10:44 | RADONC ---
RADIATION ONCOLOGY PROGRESS NOTE DATE OF SERVICE: 07/25/2019 CHART NUMBER: [id number]. PROGRESS NOTE: Ms. Perry is presently at a dose of 5080 cGy to her left breast primary site and is tolerating treatments quite well at this point with no complaints related to her radiation therapy other than some discomfort in her left triceps region. REVIEW OF SYSTEMS: The patient's review of systems is noncontributory. She denies nausea, vomiting, fevers, chills, night sweats, diplopia, headaches, anxiety or depression, anorexia, weight loss, visual disturbances, chest pain, urinary or bowel difficulties, bone pain, or neurological problems. PHYSICAL EXAMINATION: The patient's skin is in good condition and is healing nicely. There are still some areas of healing desquamation present. The remainder of her physical exam remains unchanged. Ms. Perry is tolerating treatments at this point quite well after an extended break, and radiation will continue as scheduled.
== END ==
LOC: M ONCR 07-04 09:17
PROVIDERS: ATTEND Radiology Radiation Oncology
DX: C50.312 Malignant neoplasm of lower-inner quadrant of left female breast (principal)

== ENCOUNTER 2019-07-29 09:13 | Outpatient (RCR) | payer MEDICARE, MEDICAID ==
[~2019-07-29 09:13] MED LIST changes: -LEVO137T2; +LEVO137T2 PO
--- NOTE | 2019-07-31 13:28 | RADONC ---
RADIATION ONCOLOGY TREATMENT SUMMARY DATE: 07/29/2019 CHART NUMBER: [id number] DIAGNOSIS: Left breast cancer. STAGE: T1c, N1aM0. ECOG PERFORMANCE STATUS: 0 TREATMENT SUMMARY: Ms. Perry is a very pleasant, 58-year-old white female with the diagnosis of what appears to be a stage T1c,N1a infiltrating ductal carcinoma of the left breast who presented to us status post lumpectomy and sentinel lymph node biopsy for consideration of postoperative radiation therapy in order to achieve local control and cure. We treated the patient to her left breast for a total dose of 4860 cGy delivered in 27 fractions of 180 cGy each over 59 elapsed days from 05/23/2019 to 07/21/2019. The patient's left breast was treated on a linear accelerator utilizing 3-D conformal technique with medial and lateral tangential higgins and a combination of 10X and 6X photons. Following completion of 4860 cGy the entire left breast primary site was boosted for an additional 1200 cGy delivered in 6 fractions of 200 cGy each over 7 elapsed days from 07/22/2019 through 07/29/2019. The patient's primary site boost was treated on a linear accelerator utilizing a 16 MeV electron beam prescribed to the 90% isodose line via non phos technique. This brought the primary site to a total dose of 6060 cGy delivered in 33 fractions over 66 elapsed days from 05/23/2019 through 07/29/2019. In addition, we treated the patient's lymph node drainage sites for a total dose of 4680 cGy delivered in 26 fractions of 180 cGy each over 58 elapsed days from 05/23/2019 through 07/20/2019. The patient's lymph nodes were treated on a linear accelerator utilizing a 3-D conformal technique with a combination of 15X and 6X photons. Ms. Perry tolerated her treatments with some difficulty. She did develop a brisk skin reaction and took off for a treatment break. She was subsequently able to return and complete therapy as prescribed. I have scheduled the patient to see me again in 1 month for further followup. She will also continue to be followed by her other physicians as well. Thank you for allowing us to participate in the care of this very pleasant woman. If I could be of any further assistance or provide you with any information, please feel free to contact me anytime. As always, warm regards. cc: MD Carl Rodriguezda, DO
[2019-08-22] MEDS ORDERED: AMOX500T2 PO (09:30)
[2019-08-28] MEDS ORDERED: SENO8.6T5 PO (10:59)
[2019-08-28] MEDS ORDERED: AUGM500T34 PO (10:59)
[2019-08-28] MEDS ORDERED: SERT-138 PO (10:59)
== END 2019-08-27 ==
LOC: M ONCR 09:13
PROVIDERS: ATTEND Radiology Radiation Oncology
DX: C50.312 Malignant neoplasm of lower-inner quadrant of left female breast (principal)

== ENCOUNTER → 2019-08-15 | Outpatient (REF) | payer MEDICARE, MEDICAID ==
[~2019-08-15] MED LIST changes: +AMOX500T2 PO; +AUGM500T34 PO; +SENO8.6T5 PO
[2019-08-15 16:45] LABS: FREE T4 1.2 NG/DL (0.76-1.46); THYROID STIMULATING HORMONE 1.26 uIU/ML (0.358-3.740)
== END ==
LOC: M SFHCPLAZ 14:36
PROVIDERS: ATTEND Nurse Practitioner Family
DX: E03.9 Hypothyroidism, unspecified (principal); Z23 Encounter for immunization
CPT/HCPCS: 36415; 84439; 84443; 90682; G0008

== ENCOUNTER 2019-08-22 06:03 | Emergency (ER) | payer MEDICARE, MEDICAID ==
[~2019-08-22] VITALS: Ht 170.2 cm; Wt 81.8 kg
[~2019-08-22 06:03] MED LIST changes: -AMOX500T2 PO; -AUGM500T34 PO; -SENO8.6T5 PO
[2019-08-22] MEDS ORDERED: AMPICILLIN SOD/SULBACTAM SOD 3 GM in D5W MINI-BAG PLUS 100 ML IV ONE (06:45)
[2019-08-22] MEDS ORDERED: NS 2,450 ML in IV 1 EA IV ONE (06:45)
[2019-08-22] MEDS ORDERED: diphenhydrAMINE INJ 50MG/ML VIAL (J1200) IV ONE (06:45)
[2019-08-22] MEDS ORDERED: methylPREDNISolone INJ 125 MG/2 ML VIAL (J2930) IV ONE (06:45)
[2019-08-22 07:00] LABS: BASO % 0.5 % (0.0-1.0); EOS % 0.2 % (0.0-3.0); HEMATOCRIT 50.6 % (36.0-47.0); LYMPH # 1.5 10^3/uL (1.5-5.0); LYMPH % 11.5 % (24.0-44.0); MEAN CORPUSCULAR HEMOGLOBIN 33.3 pg (27.0-33.0); MEAN CORPUSCULAR HGB CONC 33.6 g/dl (32.0-36.5); MEAN CORPUSCULAR VOLUME 99.2 fl (80.0-96.0); MONO # 1.5 10^3/uL (0.0-0.8); MONO % 12.1 % (0.0-5.0); NEUTROPHILS # 9.6 10^3/uL (1.5-8.5); NEUTROPHILS % 75.3 % (36.0-66.0); PLATELET COUNT, AUTOMATED 172 10^3/uL (150-450); WHITE BLOOD COUNT 12.8 10^3/uL (4.0-10.0)
[2019-08-22 07:01] LABS: BASO # 0.1 10^3/uL (0.0-0.2)
[2019-08-22] MEDS ORDERED: MORPHINE 4 MG/ML 1ML VIAL/SYRINGE (J2270) IV PRN (07:15)
[2019-08-22 07:24] LABS: ALT/SGPT 13 U/L (12-78); BILIRUBIN,DIRECT 0.1 MG/DL (0.0-0.2); BILIRUBIN,TOTAL 0.6 MG/DL (0.2-1.0); CALCIUM LEVEL 9.3 MG/DL (8.5-10.1); CARBON DIOXIDE LEVEL 25 MEQ/L (21-32); CHLORIDE LEVEL 104 MEQ/L (98-107); CREATININE FOR GFR 0.62 MG/DL (0.55-1.30); GLOMERULAR FILTRATION RATE > 60.0 (>51); SODIUM LEVEL 139 MEQ/L (136-145); TOTAL PROTEIN 7.9 GM/DL (6.4-8.2)
[2019-08-22] MEDS ORDERED: ISOVUE-370 76% 100ML VIAL (Q9967) As Ordered ONE (07:30)
[2019-08-22 07:39] LABS: BLOOD UREA NITROGEN 6 MG/DL (7-18); GLUCOSE, FASTING 107 MG/DL (70-100); POTASSIUM SERUM 3.3 MEQ/L (3.5-5.1)
[2019-08-22 07:40] LABS: ALBUMIN 3.3 GM/DL (3.2-5.2); AMYLASE 24 U/L (25-115); C REACTIVE PROTEIN QUANTITATIV 9.56 MG/DL (0.00-0.30)
--- NOTE | 2019-08-22 08:26 | REPVR ---
PROCEDURE INFORMATION: Exam: CT Neck With Contrast Exam date and time: 08/22/2019 6:31 AM Age: 59 years old Clinical history: Abscess, cutaneous; Additional info: R/O abscess left submandibular TECHNIQUE: Imaging protocol: Computed tomography images of the neck with intravenous contrast. Radiation optimization: All CT scans at this facility use at least one of these dose optimization techniques: automated exposure control; mA and/or kV adjustment per patient size (includes targeted exams where dose is matched to clinical indication); or iterative reconstruction. Contrast material: ISOVUE 370; Contrast volume: 75 ml; Contrast route: IV; COMPARISON: No relevant prior studies available. FINDINGS: Nasopharynx: Unremarkable. Oropharynx: Unremarkable. No significant tonsillar enlargement. Hypopharynx: Unremarkable Larynx: Unremarkable. Normal epiglottis. Retropharyngeal space: Unremarkable. Submandibular/Parotid glands: There is expansion of the left submandibular gland, with increased enhancement and overlying soft tissue induration. Thyroid: Normal. No enlarged or calcified nodules. Lymph nodes: Unremarkable. No lymphadenopathy. Trachea: Visualized trachea is unremarkable. Lungs: There are hazy left upper lobe opacities are nonspecific. Bones/joints: Unremarkable. No acute fracture. IMPRESSION: Findings compatible with left submandibular sialadenitis. No overt abscess. Electronically signed by: Reva Burrell On 08/22/2019 08:26:24 AM
[2019-08-22] MEDS ORDERED: POTASSIUM CHLORIDE 10 MEQ SR TABLET PO ONE (09:15)
[2019-08-22 09:30] VITALS: BP 145/77
[2019-08-22] MEDS ORDERED: AMOX500T2 PO (09:30)
--- NOTE | 2019-08-23 15:40 | ED PDOC ---
Post-Departure Follow-Up ct neck faxed to [facility] for fu Benja Hadley MD Aug 23, 2019 15:40
== END 2019-08-22 09:47 | disposition home or self-care (01) ==
LOC: M ED 06:03
DX: K11.21 Acute sialoadenitis (principal); L03.221 Cellulitis of neck; S02.5XXA Fracture of tooth (traumatic), initial encounter for closed fracture; E87.6 Hypokalemia; X58.XXXA Exposure to other specified factors, initial encounter; I21.9 Acute myocardial infarction, unspecified; E03.9 Hypothyroidism, unspecified; Z86.69 Personal history of other diseases of the nervous system and sense organs; F17.210 Nicotine dependence, cigarettes, uncomplicated; Z91.041 Radiographic dye allergy status; Z88.5 Allergy status to narcotic agent; Z91.040 Latex allergy status; Z79.51 Long term (current) use of inhaled steroids; Z79.82 Long term (current) use of aspirin; Z79.899 Other long term (current) drug therapy
CPT/HCPCS: 36415; 70491; 80048; 80076; 82150; 83605; 85025; 86140; 87040; 96374; 96375; 99284; J1200; J2270; J2930; Q9967

== ENCOUNTER 2019-08-28 07:30 | Inpatient (IN) | payer MEDICARE, MEDICAID ==
[2019-08-28] VITALS (8 sets, daily range): BP systolic 115–158; BP diastolic 75–81
[~2019-08-28] VITALS: Ht 170.2 cm; Wt 75.7 kg
[~2019-08-28 07:30] MED LIST changes: +AMOX500T2 PO
--- NOTE | 2019-08-28 08:26 | REPVR ---
PROCEDURE INFORMATION: Exam: CT Neck Without Contrast Exam date and time: 08/28/2019 8:07 AM Age: 59 years old Clinical history: Throat pain and other: Throat swelling; Additional info: Left submandibular swelling; evaluate airway compromise TECHNIQUE: Imaging protocol: Computed tomography images of the neck without contrast. Radiation optimization: All CT scans at this facility use at least one of these dose optimization techniques: automated exposure control; mA and/or kV adjustment per patient size (includes targeted exams where dose is matched to clinical indication); or iterative reconstruction. COMPARISON: CT Neck with contrast 08/22/2019 7:32 AM FINDINGS: Nasopharynx: Unremarkable. Oropharynx: Increasing soft tissue expansion of the left oral cavity at the mouth floor with effacement or compression of midline structures . Scattered absence of dentition. Severe dental caries. Hypopharynx: Unremarkable Larynx: Unremarkable. Normal epiglottis. Retropharyngeal space: Unremarkable. Submandibular/Parotid glands: Persistent enlargement of the left submandibular gland with prominent surrounding soft tissue edema and stranding. A likely surrounding submandibular reactive lymphadenopathy. Development of rounded area of soft tissue prominence at the lower margin of the left mandible and also along the inner margin of the left mandible with questionable central low attenuating area suspicious for possible development of abscess although cannot be confirmed. Thyroid: Normal. No enlarged or calcified nodules. Lymph nodes: See Submandibular/parotid Glands Finding. Trachea: Visualized trachea is unremarkable. Esophagus: Mild accentuation of the upper mediastinal esophageal wall. Lungs: A small cystic spaces within the upper level of lungs and small subpleural blebs. Bones/joints: Degenerative change of the spine. Soft tissues: Limitation of the lateral contrast media. No definite airway encroachment. IMPRESSION: 1. Increasing ill-defined soft tissue changes left floor of mouth and surrounding the mandible inner margin and lower mandibular margin concerning for possible underlying developing abscess. IV contrast would be required and repeat examination with IV contrast is recommended. 2. Increasing soft tissue changes and edema or cellulitis. Electronically signed by: Joana Gilliam On 08/28/2019 08:25:39 AM
[2019-08-28 08:44] LABS: BASO # 0.1 10^3/uL (0.0-0.2); BASO % 0.5 % (0.0-1.0); EOS # 0.1 10^3/uL (0.0-0.5); EOS % 0.6 % (0.0-3.0); HEMATOCRIT 46.6 % (36.0-47.0); LYMPH # 0.8 10^3/uL (1.5-5.0); LYMPH % 7.8 % (24.0-44.0); MEAN CORPUSCULAR HEMOGLOBIN 33.2 pg (27.0-33.0); MEAN CORPUSCULAR HGB CONC 34.3 g/dl (32.0-36.5); MEAN CORPUSCULAR VOLUME 96.7 fl (80.0-96.0); NEUTROPHILS % 80.6 % (36.0-66.0); PLATELET COUNT, AUTOMATED 235 10^3/uL (150-450); RED BLOOD COUNT 4.82 10^6/uL (4.00-5.40); WHITE BLOOD COUNT 9.9 10^3/uL (4.0-10.0)
[2019-08-28] MEDS ORDERED: AMPICILLIN SOD/SULBACTAM SOD 3 GM in D5W MINI-BAG PLUS 100 ML IV ONE (08:45)
[2019-08-28 08:49] LABS: BLOOD UREA NITROGEN 7 MG/DL (7-18); CALCIUM LEVEL 8.8 MG/DL (8.5-10.1); CARBON DIOXIDE LEVEL 28 MEQ/L (21-32); CHLORIDE LEVEL 101 MEQ/L (98-107); GLOMERULAR FILTRATION RATE > 60.0 (>51); GLUCOSE, FASTING 109 MG/DL (70-100); POTASSIUM SERUM 3.5 MEQ/L (3.5-5.1); SODIUM LEVEL 137 MEQ/L (136-145)
[2019-08-28] MEDS ORDERED: MORPHINE 4 MG/ML 1ML VIAL/SYRINGE (J2270) IV ONE (09:00)
[2019-08-28 09:06] LABS: C REACTIVE PROTEIN QUANTITATIV 7.97 MG/DL (0.00-0.30)
[2019-08-28 09:21] LABS: ERYTHROCYTE SEDIMENTATION RATE 49 mm/hr (0-30)
[2019-08-28] MEDS ORDERED: SERT-138 PO (10:59)
[2019-08-28] MEDS ORDERED: SENO8.6T5 PO (10:59)
[2019-08-28] MEDS ORDERED: AUGM500T34 PO (10:59)
--- NOTE | 2019-08-28 11:08 | HPEPDOC ---
General Date of Admission Aug 28, 2019 at 10:18 Date of Service: Aug 28, 2019 Chief Complaint The patient is a 59-year-old female admitted with a reason for visit of Cellulitis. Source: Patient Exam Limitations: No limitations Timing/Duration: Day(s) History of Present Illness Patient is 59 years old female with past medical history of epilepsy, breast cancer currently on radiation therapy, stroke, [place], hyperlipidemia presented ho spital with left submandibular swelling. Patient stated that around 10 days ago she broke her tooth on the left side of her jaw and on the next day she started feeling gum swelling. She went to the emergency room and she was prescribed amoxicillin for 7 days, she took completed the course of amoxicillin, however the swelling of left jaw became bigger and she started feeling difficulties in swallowing on the left side. Also she complains on the tenderness of submandibular space and tenderness over the left posterior neck. In emergency room CT scan was done and showed Increasing ill-defined soft tissue changes left floor of mouth and surrounding the mandible inner margin and lower mandibular margin concerning for possible underlying developing abscess. Increasing soft tissue changes and edema or cellulitis. Unasyn IV was given in ER. Patient denied fever, chills, nausea, vomiting, shortness of breath, palpitations diarrhea or dysuria Home Medications Scheduled Amoxicillin/Potassium Clav (Augmentin 500-125 Tablet) 1 Each Tablet, 1 TAB PO BID, (Reported) PRESCRIBED 08/22/19 FOR 10 DAYS Anastrozole (Anastrozole) 1 Mg Tablet, 1 MG PO DAILY, (Reported) Aspirin (Aspir 81) 81 Mg Tablet.dr, 81 MG PO Q2D, (Reported) Atorvastatin Calcium (Atorvastatin Calcium) 20 Mg Tablet, 20 MG PO QHS, (Reported) Calcium Carb/Vit D3/Minerals (Calcium 600+D Plus Minerals Tb) 1 Each Tablet, 1 TAB PO DAILY, (Reported) Dexlansoprazole (Dexilant) 60 Mg Cap.bp, 60 MG PO DAILY, (Reported) Divalproex Sodium (Depakote) 500 Mg Tablet.dr, 500 MG PO QHS, (Reported) Fluticasone/Vilanterol (Breo Ellipta 100-25 Mcg INH) 1 Each Blst.w.dev, 1 PUFF INH DAILY, (Reported) Gabapentin (Gabapentin) 100 Mg Cap, 800 MG PO TID, (Reported) Levothyroxine Sodium (Levothyroxine Sodium) 137 Mcg Tablet, 137 MCG PO DAILY, (Reported) PT TAKES AT 10 AM Sennosides (Senokot) 8.6 Mg Tablet, 17.2 TAB PO QHS, (Reported) Sertraline HCl (Sertraline HCl) 100 Mg Tablet, 150 MG PO QHS, (Reported) Scheduled PRN Albuterol Sulfate (Ventolin Hfa) 18 Gm Hfa.aer.ad, 2 PUFF INH Q4H PRN for SOB/WHEEZING, (Reported) Baclofen (Baclofen) 10 Mg Tablet, 10 MG PO TID PRN for MUSCLE SPASMS, (Reported) Eletriptan Hydrobromide (Relpax) 40 Mg Tablet, 40 MG PO DAILY PRN for HEADACHE, (Reported) Allergies Coded Allergies: Contrast Media (Unverified Allergy, Intermediate, Swelling/hives, 08/28/19) codeine (Verified Allergy, Intermediate, HANDS & FEET SWELLING, 08/22/19) TOLERATES MORPHINE latex (Verified Allergy, Intermediate, Swelling/hives, 08/28/19) Past Medical History Medical History epilepsy, breast cancer currently on radiation therapy, stroke, [place], hyperlipidemia Family History Mother has CHF, father has diabetes and coronary artery diseases Social History * Smoker: current smoker Alcohol: Denies Drugs: denies A-FIB/CHADSVASC A-FIB History Current/History of A-Fib/PAF?: No Current PO Anticoag Therapy: No Review of Systems Constitutional: Denies: Chills, Fever Eyes: Denies: Pain, Vision change ENT: Reports: Dysphagia, Sore Throat Skin: Reports: Rash Pulmonary: Denies: Dyspnea, Cough Cardiovascular: Denies: Chest Pain, Palpitations Gastrointestinal: Denies: Nausea, Vomiting Genitourinary: Denies: Dysuria, Frequency Hematologic: Denies: Bruising, Bleeding Excessively Endocrine: Denies: Polydipsia, Polyphagia Musculoskeletal: Reports: Neck Pain Neurological: Denies: Weakness, Numbness Psych: Reports: Mood Normal Physical Examination General Exam: Positive: Alert, Cooperative Eye Exam: Positive: PERRLA ENT Exam: Positive: Atraumatic Neck Exam: Positive: Supple, Lymphadenopathy, Other (left submandibular swelling ); Negative: JVD Chest Exam: Positive: Clear to auscultation Heart Exam: Positive: Rate Normal Telemetry: Positive: No significant arrhythmia Abdomen Exam: Positive: Normal bowel sounds Extremity Exam: Positive: Clubbing Skin Exam: Positive: Rash (over the lateral part of left jaw) Neuro Exam: Positive: Normal Gait, Strength at 5/5 X4 ext, Cranial Nerves 3-12 NL Psych Exam: Positive: Mental status NL, Oriented x 3 Vital Signs Vital Signs Date Time Temp Pulse Resp B/P (MAP) Pulse Ox O2 Delivery O2 Flow Rate FiO2 08/28/19 09:05 20 Room Air 08/28/19 08:20 08/28/19 07:30 96.4 110 99 Laboratory Data Labs 24H Laboratory Tests 2 08/28/19 08:16: Immature Granulocyte % (Auto) 0.5, Neutrophils (%) (Auto) 80.6H, Lymphocytes (%) (Auto) 7.8L, Monocytes (%) (Auto) 10.0H, Eosinophils (%) (Auto) 0.6, Basophils (%) (Auto) 0.5, Neutrophils # (Auto) 8.0, Lymphocytes # (Auto) 0.8L, Monocytes # (Auto) 1.0H, Eosinophils # (Auto) 0.1, Basophils # (Auto) 0.1, Nucleated Red Blood Cells % (auto) 0.0, Erythrocyte Sedimentation Rate 49H, Anion Gap 8, Glomerular Filtration Rate > 60.0, Lactic Acid Level 1.1, Calcium Level 8.8, C-Reactive Protein, Quantitative 7.97H CBC/BMP Laboratory Tests 08/28/19 08:16 Microbiology Microbiology 08/28/19 Blood Culture, Received Pending 08/28/19 Blood Culture, Received Pending Assessment/Plan Patient is 59 years old female with past medical history of epilepsy, breast cancer currently on radiation therapy, stroke, [place], hyperlipidemia presented hospital with left submandibular swelling. Patient stated that around 10 days ago she broke her tooth on the left side of her jaw and on the next day she started feeling gum swelling. She went to the emergency room and she was prescribed amoxicillin for 7 days, she took completed the course of amoxicillin, however the swelling of left jaw became bigger and she started feeling difficulties in swallowing on the left side. Also she complains on the tenderness of submandibular space and tenderness over the left posterior neck. In emergency room CT scan was done and showed Increasing ill-defined soft tissue changes left floor of mouth and surrounding the mandible inner margin and lower mandibular margin concerning for possible underlying developing abscess. Problems (1) Cellulitis Status: Acute Problem Text: Pt developed tenderness of submandibular space and tenderness ove r the left posterior neck for around 7-[address] scan was done and showed increasing ill-defined soft tissue changes left floor of mouth and surrounding the mandible inner margin and lower mandibular margin concerning for possible underlying developing abscess. Patient failed Augmentin treatment Clindamycin IV Appreciate/agree with ENT consult Plan / VTE VTE Prophylaxis Ordered?: Yes JIMENA WAYNE DO Aug 28, 2019 11:08
[2019-08-28] MEDS ORDERED: ALBUTEROL 90 MCG/ACT 8GM HFA INHALER INH PRN (11:15)
[2019-08-28] MEDS ORDERED: BACLOFEN 10 MG TAB PO PRN (11:15)
[2019-08-28] MEDS ORDERED: ACETAMINOPHEN TAB 650MG DOSE (2X325MG) PO PRN (12:15)
[2019-08-28] MEDS: MORPHINE 2 MG/ML 1ML VIAL (J2270) IV PRN ×2 (12:22→19:36)
[2019-08-28] MEDS ORDERED: CLINDAMYCIN 900 MG in IV 1 EA IV SCH (13:00)
[2019-08-28] MEDS ORDERED: AMPICILLIN SOD/SULBACTAM SOD 3 GM in D5W MINI-BAG PLUS 100 ML IV SCH (15:00)
[2019-08-28] MEDS: GABAPENTIN 400 MG CAP PO SCH ×2 (16:00→20:15)
[2019-08-28] MEDS ORDERED: ROCURONIUM BROMIDE 50 MG/5 ML VIAL As Ordered ONE (16:01)
[2019-08-28] MEDS ORDERED: PROPOFOL 200 MG/20 ML VIAL As Ordered ONE (16:01)
[2019-08-28] MEDS ORDERED: LIDOCAINE 2% INJ 100 MG/5 ML SDV (FOR ANES.) As Ordered ONE (16:01)
[2019-08-28] MEDS ORDERED: ONDANSETRON 4MG/2ML VIAL (J2405) As Ordered ONE (16:03)
[2019-08-28] MEDS ORDERED: dexameTHASONE 4 MG/ML 1ML VIAL (J1100) As Ordered ONE (16:03)
[2019-08-28] MEDS ORDERED: fentaNYL 100 MCG/2 ML INJECTION (J3010) As Ordered ONE (16:04)
[2019-08-28] MEDS ORDERED: MIDAZOLAM INJ 2 MG/2 ML VIAL (J2250) As Ordered ONE (16:04)
[2019-08-28] MEDS ORDERED: LIDOCAINE W/EPINEPHRINE 1% 20ML VIAL As Ordered ONE (16:07)
[2019-08-28] MEDS ORDERED: SUGAMMADEX SODIUM 500 MG/5 ML VIAL (BRIDION) As Ordered ONE (16:39)
[2019-08-28] MEDS ORDERED: oxyCODONE 5MG TAB PO PRN (17:15)
[2019-08-28] MEDS ORDERED: LR 1,000 ML IV SCH (17:15)
[2019-08-28] MEDS ORDERED: ONDANSETRON 4MG/2ML VIAL (J2405) IV PRN (17:15)
[2019-08-28] MEDS ORDERED: fentaNYL 100 MCG/2 ML INJECTION (J3010) IV PRN (17:15)
[2019-08-28] MEDS ORDERED: oxyCODONE 5MG TAB As Ordered ONE (17:16)
[2019-08-28] MEDS: HYDROCORTISONE INJection 1,000 MG in NS 50 ML IV SCH ×2 (17:53→23:17)
[2019-08-28] MEDS: AMPICILLIN SOD/SULBACTAM SOD 3 GM in D5W MINI-BAG PLUS 100 ML IV SCH ×2 (18:20→23:18)
[2019-08-28] MEDS: HEPARIN SOD (PORCINE) 5000 UNITS/ML VIAL SC SCH (20:15)
[2019-08-28] MEDS: SERTRALINE HCL 50 MG TAB PO SCH (20:16)
[2019-08-28] MEDS: ATORVASTATIN 20 MG TAB PO SCH (20:16)
[2019-08-28] MEDS: DIVALPROEX 500 MG TAB PO SCH (20:16)
[2019-08-28] MEDS ORDERED: SENOKOT S TAB PO SCH (21:00)
[2019-08-28] MEDS: SENOKOT S TAB PO SCH (23:17)
[2019-08-29 02:00] VITALS: BP 137/69
[2019-08-29] MEDS: AMPICILLIN SOD/SULBACTAM SOD 3 GM in D5W MINI-BAG PLUS 100 ML IV SCH ×4 (05:29→23:28)
[2019-08-29 06:00] VITALS: BP 126/65
[2019-08-29 06:03] LABS: HEMATOCRIT 48.9 % (36.0-47.0); HEMOGLOBIN 15.9 g/dl (12.0-15.5); MEAN CORPUSCULAR HEMOGLOBIN 32.7 pg (27.0-33.0); MEAN CORPUSCULAR HGB CONC 32.5 g/dl (32.0-36.5); MEAN CORPUSCULAR VOLUME 100.6 fl (80.0-96.0); PLATELET COUNT, AUTOMATED 239 10^3/uL (150-450); RED BLOOD COUNT 4.86 10^6/uL (4.00-5.40); WHITE BLOOD COUNT 9.4 10^3/uL (4.0-10.0)
[2019-08-29 06:30] LABS: BLOOD UREA NITROGEN 7 MG/DL (7-18); CARBON DIOXIDE LEVEL 33 MEQ/L (21-32); CHLORIDE LEVEL 100 MEQ/L (98-107); CREATININE FOR GFR 0.62 MG/DL (0.55-1.30); GLOMERULAR FILTRATION RATE > 60.0 (>51); GLUCOSE, FASTING 125 MG/DL (70-100); MAGNESIUM LEVEL 2.3 MG/DL (1.8-2.4); POTASSIUM SERUM 3.6 MEQ/L (3.5-5.1); SODIUM LEVEL 139 MEQ/L (136-145)
[2019-08-29] MEDS: HEPARIN SOD (PORCINE) 5000 UNITS/ML VIAL SC SCH ×2 (09:03→20:18)
[2019-08-29] MEDS: ASPIRIN 81 MG ENTERIC TAB PO SCH (09:03)
[2019-08-29] MEDS: GABAPENTIN 400 MG CAP PO SCH ×3 (09:03→20:17)
[2019-08-29] MEDS: HYDROCORTISONE INJection 1,000 MG in NS 50 ML IV SCH ×2 (09:03→16:01)
[2019-08-29 10:00] VITALS: BP 102/74
--- NOTE | 2019-08-29 10:16 | CR ---
DATE OF CONSULTATION: 08/28/2019 Coretta presents with a history of swelling and pain beneath her jaw on the left side. Her problems began last Thursday, which was 8 days ago, where she developed a broken tooth on the left side of the mandible. After that, she noted swelling beneath the mandible. On Thursday, she was started on oral antibiotics and there was no improvement, so she presented to the emergency department. She has a history of having had a stroke, heart attack. She has had cancer of the breast and just finished radiation therapy a month ago. She does smoke a pack of cigarettes per day. Examination today shows that she has swelling beneath the mandible on the left side with erythema. She does not have trismus. She has a bit of redness of the floor of the mouth but no edema. She has no tenderness of her teeth. Her airway is good. Oropharynx normal. The swelling was marked out and extended to just above the mandible at the are of the body, and then below the mandible with most of the swelling. A fine needle aspiration biopsy only retrieved one drop of the purulent fluid. IMPRESSION: Review of the CT scans that showed she has cellulitis of the left neck anteriorly on that left side. It is consistent with submandibular cellulitis early abscess formation. PLAN: The patient will be started on IV antibiotics and steroids and I will see her in followup to make sure that she improves. If she does not, she will require and drainage procedure.
[2019-08-29] MEDS: LEVOTHYROXINE 137MCG TABLET (0.137MG) PO SCH (10:27)
[2019-08-29] MEDS: MORPHINE 2 MG/ML 1ML VIAL (J2270) IV PRN (10:28)
--- NOTE | 2019-08-29 10:47 | RO ---
DATE OF PROCEDURE: 08/28/2019 PREPROCEDURE DIAGNOSIS: Left facial swelling. POSTPROCEDURE DIAGNOSIS: Left facial swelling. PROCEDURE PERFORMED: Extraction of teeth number 18, 19, 20. SURGEON: Vega Staley MD [employer] MANAGER: ANESTHESIA: General. ESTIMATED BLOOD LOSS: 5 mL. COMPLICATIONS: None. SPECIMENS: Teeth. DRAINS: None.
[2019-08-29 14:00] VITALS: BP 106/73
--- NOTE | 2019-08-29 16:31 | IPNPDOC ---
Subjective Date Seen The patient was seen on 08/29/19. Subjective Chief Complaint/HPI Co persistent L proximal neck STS pain Constitutional: Denies: Chills, Fever Eyes: Reports: Pain ENT: Denies: Head Aches Skin: Denies: Rash, Lesions Pulmonary: Denies: Dyspnea, Cough Cardiovascular: Denies: Chest Pain, Palpitations Gastrointestinal: Denies: Nausea, Vomiting Objective Physical Examination General Exam: Positive: Alert, Cooperative Eye Exam: Positive: PERRLA ENT Exam: Positive: Atraumatic Neck Exam: Positive: Lymphadenopathy, Other (left anterior, proximal neck moderate STS); Negative: JVD Chest Exam: Positive: Clear to auscultation Heart Exam: Positive: Rate Normal Telemetry: Positive: No significant arrhythmia Abdomen Exam: Positive: Normal bowel sounds Extremity Exam: Positive: Clubbing Skin Exam: Positive: Rash (over the lateral part of left jaw) Neuro Exam: Positive: Normal Gait, Strength at 5/5 X4 ext, Cranial Nerves 3-12 NL Psych Exam: Positive: Mental status NL, Oriented x 3 Assessment /Plan Problems (1) Submandibular abscess Status: Acute Response to Treatment: Improving Problem Text: D2 amp/sul Contingency: repeat CT neck for abscess evolution 08/29 AF, WBC 9.4 (12.8); changed HC to SM for STS reduction 08/28 sp teeth # 18, 19, 20 extraction-Malcolm 08/28 BCX2 NG (2) Cellulitis Status: Acute Response to Treatment: Improving Problem Text: as per abscess (3) IZZY (obstructive sleep apnea) Status: Chronic Problem Text: unable to tolerate home CPAP-caution c oversedation c MSO4 (4) Fibromyalgia Status: Chronic Response to Treatment: Stable Problem Text: stable on HD elisa 800/400/800 (5) Migraine headache Status: Chronic Response to Treatment: Stable Problem Text: Stable on HD DVP 500 QHS, would NOT use triptan given ho CVA Plan/VTE VTE Prophylaxis Ordered?: Yes VS, I&O, 24H, Fishbone Vital Signs/I&O Vital Signs Date Time Temp Pulse Resp B/P (MAP) Pulse Ox O2 Delivery O2 Flow Rate FiO2 08/29/19 14:00 98.1 89 12 106/73 (84) 92 Nasal Cannula 2.0 I&O- Last 24 Hours up to 6 AM 08/29/19 06:00 Intake Total 1254 ml Output Total 5 ml Balance 1249 ml Laboratory Data 24H LABS Laboratory Tests 2 08/29/19 05:25: Nucleated Red Blood Cells % (auto) 0.0, Anion Gap 6L, Glomerular Filtration Rate > 60.0, Calcium Level 9.0, Magnesium Level 2.3 CBC/BMP Laboratory Tests 08/29/19 05:25 Microbiology Microbiology 08/28/19 Blood Culture - Preliminary, Resulted No growth after 24 hours . All specim... 08/28/19 Blood Culture - Preliminary, Resulted No growth after 24 hours . All specim... Collin Aguilar M.D. Aug 29, 2019 16:30
[2019-08-29] MEDS ORDERED: KETOROLAC 30 MG/ML VIAL (J1885) IV ONE (16:45)
[2019-08-29 18:00] VITALS: BP 116/69
[2019-08-29] MEDS: SERTRALINE HCL 50 MG TAB PO SCH (20:16)
[2019-08-29] MEDS: ATORVASTATIN 20 MG TAB PO SCH (20:17)
[2019-08-29] MEDS: SENOKOT S TAB PO SCH (20:17)
[2019-08-29] MEDS: DIVALPROEX 500 MG TAB PO SCH (20:17)
[2019-08-29 22:00] VITALS: BP 136/80
[2019-08-29] MEDS: methylPREDNISolone INJ 125 MG/2 ML VIAL (J2930) IV SCH (23:28)
[2019-08-30] VITALS (7 sets, daily range): BP systolic 118–153; BP diastolic 71–84
[2019-08-30] MEDS: AMPICILLIN SOD/SULBACTAM SOD 3 GM in D5W MINI-BAG PLUS 100 ML IV SCH ×3 (05:26→17:40)
[2019-08-30 06:08] LABS: BASO % 0.2 % (0.0-1.0); HEMATOCRIT 44.5 % (36.0-47.0); HEMOGLOBIN 14.5 g/dl (12.0-15.5); LYMPH # 0.8 10^3/uL (1.5-5.0); LYMPH % 6.1 % (24.0-44.0); MEAN CORPUSCULAR HEMOGLOBIN 32.8 pg (27.0-33.0); MEAN CORPUSCULAR HGB CONC 32.6 g/dl (32.0-36.5); MEAN CORPUSCULAR VOLUME 100.7 fl (80.0-96.0); MONO # 0.6 10^3/uL (0.0-0.8); MONO % 4.7 % (0.0-5.0); NEUTROPHILS # 11.7 10^3/uL (1.5-8.5); NEUTROPHILS % 88.2 % (36.0-66.0); PLATELET COUNT, AUTOMATED 237 10^3/uL (150-450); RED BLOOD COUNT 4.42 10^6/uL (4.00-5.40); WHITE BLOOD COUNT 13.3 10^3/uL (4.0-10.0)
[2019-08-30 06:46] LABS: ALBUMIN 2.5 GM/DL (3.2-5.2); ALT/SGPT 18 U/L (12-78); BILIRUBIN,TOTAL 0.2 MG/DL (0.2-1.0); BLOOD UREA NITROGEN 21 MG/DL (7-18); C REACTIVE PROTEIN QUANTITATIV 5.11 MG/DL (0.00-0.30); CALCIUM LEVEL 8.4 MG/DL (8.5-10.1); CARBON DIOXIDE LEVEL 33 MEQ/L (21-32); CHLORIDE LEVEL 99 MEQ/L (98-107); CREATININE FOR GFR 0.67 MG/DL (0.55-1.30); GLOMERULAR FILTRATION RATE > 60.0 (>51); GLUCOSE, FASTING 124 MG/DL (70-100); POTASSIUM SERUM 3.2 MEQ/L (3.5-5.1); SODIUM LEVEL 138 MEQ/L (136-145); TOTAL PROTEIN 6.8 GM/DL (6.4-8.2)
[2019-08-30] MEDS ORDERED: POTASSIUM CHLORIDE 10 MEQ SR TABLET PO ONE (08:15)
[2019-08-30] MEDS: HEPARIN SOD (PORCINE) 5000 UNITS/ML VIAL SC SCH ×2 (08:23→20:09)
[2019-08-30] MEDS: methylPREDNISolone INJ 125 MG/2 ML VIAL (J2930) IV SCH ×2 (08:23→16:12)
[2019-08-30] MEDS: GABAPENTIN 400 MG CAP PO SCH ×3 (08:43→20:06)
--- NOTE | 2019-08-30 09:48 | IPNPDOC ---
Subjective Date Seen The patient was seen on 08/30/19. Subjective Chief Complaint/HPI Pt this morning states that she was alright until she got up and started moving around, she now has more pain. She also states that she thinks the swelling above her jaw is slightly worse than it was before. She denies fevers or chills. Appetite remains minimal. General: Denies: Fatigue Constitutional: Denies: Chills, Fever Pulmonary: Denies: Dyspnea, Cough Cardiovascular: Denies: Chest Pain, Palpitations Gastrointestinal: Denies: Nausea, Vomiting Neurological: Denies: Weakness Psych: Reports: Mood Normal Objective Physical Examination General Exam: Positive: Alert, Cooperative Eye Exam: Positive: PERRLA ENT Exam: Positive: Atraumatic Neck Exam: Positive: Lymphadenopathy, Other (left anterior, proximal neck moderate STS); Negative: JVD Chest Exam: Positive: Clear to auscultation Heart Exam: Positive: Rate Normal Telemetry: Positive: No significant arrhythmia Abdomen Exam: Positive: Normal bowel sounds Extremity Exam: Positive: Clubbing Skin Exam: Positive: Rash (over the lateral part of left jaw) Neuro Exam: Positive: Normal Gait, Strength at 5/5 X4 ext, Cranial Nerves 3-12 NL Psych Exam: Positive: Mental status NL, Oriented x 3 Assessment /Plan Problems (1) Submandibular abscess Status: Acute Response to Treatment: Improving Problem Text: 08/30 Pt concerned regarding more swelling, will repeat CT neck to reassess abscess. D3 amp/sul. Remains afebrile. WBC increased slightly, could be assoc with change from hydrocortisone to SM. 08/29 D2 amp/sul Contingency: repeat CT neck for abscess evolution 08/29 AF, WBC 9.4 (12.8); changed HC to SM for STS reduction 08/28 sp teeth # 18, 19, 20 extraction-Malcolm 08/28 BCX2 NG (2) Cellulitis Status: Acute Response to Treatment: Improving Problem Text: as per abscess (3) IZZY (obstructive sleep apnea) Status: Chronic Problem Text: unable to tolerate home CPAP-caution c oversedation c MSO4 (4) Fibromyalgia Status: Chronic Response to Treatment: Stable Problem Text: stable on HD elisa 800/400/800 (5) Migraine headache Status: Chronic Response to Treatment: Stable Problem Text: Stable on HD DVP 500 QHS, would NOT use triptan given ho CVA Plan/VTE VTE Prophylaxis Ordered?: Yes VS, I&O, 24H, Yudith Vital Signs/I&O Vital Signs Date Time Temp Pulse Resp B/P (MAP) Pulse Ox O2 Delivery O2 Flow Rate FiO2 08/30/19 06:00 97.8 71 11 135/76 (95) 92 Nasal Cannula 2.0 I&O- Last 24 Hours up to 6 AM 08/30/19 06:00 Intake Total 1155 ml Output Total 1525 ml Balance -370 ml Laboratory Data 24H LABS Laboratory Tests 2 08/30/19 05:17: Immature Granulocyte % (Auto) 0.8, Neutrophils (%) (Auto) 88.2H, Lymphocytes (%) (Auto) 6.1L, Monocytes (%) (Auto) 4.7, Eosinophils (%) (Auto) 0.0, Basophils (%) (Auto) 0.2, Neutrophils # (Auto) 11.7H, Lymphocytes # (Auto) 0.8L, Monocytes # (Auto) 0.6, Eosinophils # (Auto) 0.0, Basophils # (Auto) 0.0, Nucleated Red Blood Cells % (auto) 0.0, Anion Gap 6L, Glomerular Filtration Rate > 60.0, Calcium Level 8.4L, Total Bilirubin 0.2, Aspartate Amino Transf (AST/SGOT) 14, Alanine Aminotransferase (ALT/SGPT) 18, Alkaline Phosphatase 89, C-Reactive Protein, Quantitative 5.11H, Total Protein 6.8, Albumin 2.5L, Albumin/Globulin Ratio 0.58L CBC/BMP Laboratory Tests 08/30/19 05:17 Microbiology Microbiology 08/28/19 Blood Culture - Preliminary, Resulted No Growth after 48 hours. All Specime... 08/28/19 Blood Culture - Preliminary, Resulted No Growth after 48 hours. All Specime... THERESA PAINTING PA-C Aug 30, 2019 09:48
[2019-08-30] MEDS: LEVOTHYROXINE 137MCG TABLET (0.137MG) PO SCH (10:00)
--- NOTE | 2019-08-30 11:00 | REP ---
CT neck: 08/30/2019. Indication: Face/neck swelling. Comparison: 2 days earlier. Technique: Unenhanced axial CT images of the neck were obtained without IV contrast. Evaluation of the neck soft tissues without IV contrast is suboptimal. Findings: No change compared to the prior study is interval extraction of left mandibular molars and premolar. There is persistent inflammatory changes within the perimandibular soft tissues and floor of mouth. There is enlargement of the left submandibular gland without sialolith detected. The airway is patent. There is no drainable abscess detected. Impression: Persistent edema within the perimandibular and floor of mouth soft tissues. Interval extraction of multiple left mandibular teeth. No abscess detected. Electronically Signed by Kelvin Greco DO 08/30/2019 10:51 A
[2019-08-30] MEDS: KCL 20MEQ in NS 1000ML 1,000 ML IV SCH ×2 (14:28→22:34)
[2019-08-30] MEDS: PERCOCET 5MG/325MG TAB PO PRN ×2 (14:31→22:37)
[2019-08-30] MEDS: KETOROLAC 30 MG/ML VIAL (J1885) IV PRN ×2 (16:13→23:17)
[2019-08-30] MEDS: DIVALPROEX 500 MG TAB PO SCH (20:05)
[2019-08-30] MEDS: ATORVASTATIN 20 MG TAB PO SCH (20:07)
[2019-08-30] MEDS: SENOKOT S TAB PO SCH (20:08)
[2019-08-30] MEDS: SERTRALINE HCL 50 MG TAB PO SCH (20:09)
[2019-08-31] VITALS (8 sets, daily range): BP systolic 135–155; BP diastolic 80–87
[2019-08-31] MEDS: methylPREDNISolone INJ 125 MG/2 ML VIAL (J2930) IV SCH ×4 (00:10→23:56)
[2019-08-31] MEDS: AMPICILLIN SOD/SULBACTAM SOD 3 GM in D5W MINI-BAG PLUS 100 ML IV SCH ×5 (00:10→23:56)
[2019-08-31] MEDS: KCL 20MEQ in NS 1000ML 1,000 ML IV SCH ×4 (05:33→23:57)
[2019-08-31 05:45] LABS: BASO % 0.1 % (0.0-1.0); HEMATOCRIT 40.7 % (36.0-47.0); HEMOGLOBIN 13.5 g/dl (12.0-15.5); LYMPH # 0.6 10^3/uL (1.5-5.0); LYMPH % 6.3 % (24.0-44.0); MEAN CORPUSCULAR HEMOGLOBIN 33.3 pg (27.0-33.0); MEAN CORPUSCULAR HGB CONC 33.2 g/dl (32.0-36.5); MEAN CORPUSCULAR VOLUME 100.5 fl (80.0-96.0); MONO # 0.4 10^3/uL (0.0-0.8); MONO % 3.9 % (0.0-5.0); NEUTROPHILS # 8.5 10^3/uL (1.5-8.5); NEUTROPHILS % 89.3 % (36.0-66.0); PLATELET COUNT, AUTOMATED 239 10^3/uL (150-450); RED BLOOD COUNT 4.05 10^6/uL (4.00-5.40); WHITE BLOOD COUNT 9.5 10^3/uL (4.0-10.0)
[2019-08-31 06:21] LABS: ALBUMIN 2.4 GM/DL (3.2-5.2); ALT/SGPT 17 U/L (12-78); BILIRUBIN,TOTAL 0.1 MG/DL (0.2-1.0); BLOOD UREA NITROGEN 16 MG/DL (7-18); C REACTIVE PROTEIN QUANTITATIV 2.27 MG/DL (0.00-0.30); CALCIUM LEVEL 7.7 MG/DL (8.5-10.1); CARBON DIOXIDE LEVEL 29 MEQ/L (21-32); CHLORIDE LEVEL 109 MEQ/L (98-107); CREATININE FOR GFR 0.63 MG/DL (0.55-1.30); GLOMERULAR FILTRATION RATE > 60.0 (>51); GLUCOSE, FASTING 117 MG/DL (70-100); POTASSIUM SERUM 3.9 MEQ/L (3.5-5.1); SODIUM LEVEL 144 MEQ/L (136-145)
--- NOTE | 2019-08-31 06:59 | IPN ---
DATE 08/30/2019 ADDENDUM TO REPORT #[id number]: Coretta's CT did return showing no abscess. She needs better pain control. I discussed this with her nurse. She is concerned about the morphine suppressing her respirations. Patient's creatinine is normal. Her BUN is up a bit (probably from the methylprednisolone). At this point, we are going to provide her with some IV fluids. I have ordered some IV Toradol, and I have ordered some Percocet, which she takes at home from her oncologist. That combination should provide her with enough pain control.
[2019-08-31] MEDS: GABAPENTIN 400 MG CAP PO SCH ×3 (08:49→20:06)
[2019-08-31] MEDS: ASPIRIN 81 MG ENTERIC TAB PO SCH (08:50)
[2019-08-31] MEDS: HEPARIN SOD (PORCINE) 5000 UNITS/ML VIAL SC SCH ×2 (08:54→20:07)
[2019-08-31] MEDS ORDERED: MIRALAX *UNIT DOSE* 17GM PACKET PO SCH (09:00)
[2019-08-31] MEDS: LEVOTHYROXINE 137MCG TABLET (0.137MG) PO SCH (11:15)
[2019-08-31] MEDS: KETOROLAC 30 MG/ML VIAL (J1885) IV PRN (11:41)
[2019-08-31] MEDS ORDERED: MOM 30ML SUSPENSION UDC PO ONE (13:00)
--- NOTE | 2019-08-31 19:59 | IPN ---
DATE: 08/31/2019 C[place] is seen in [place]. The swelling on the left side of her jaw is decreased and she is feeling better and probably getting near ready for discharge. She has been afebrile. Vital signs are stable. Decreased swelling at the right angle of the jaw. Less tender to palpate and no warmth or redness. PHYSICAL EXAMINATION: Lungs clear. Heart with regular rhythm. Abdomen is soft and nontender. IMPRESSION: 1. Dental abscess. She has responded well to current treatment. She should be able to be discharged on some Augmentin. 2. Question hypoxemia. She apparently has been having some nocturnal desaturations. I discussed this with Karolina, the child care center administrator. We will check overnight room air oximetry, as well as oximetry resting and walking tomorrow to see whether she qualifies for home oxygen. I asked to have this determination made after care rounds tomorrow to expedite discharge.
[2019-08-31] MEDS: SERTRALINE HCL 50 MG TAB PO SCH (20:06)
[2019-08-31] MEDS: ATORVASTATIN 20 MG TAB PO SCH (20:07)
[2019-08-31] MEDS: SENOKOT S TAB PO SCH (20:07)
[2019-08-31] MEDS: DIVALPROEX 500 MG TAB PO SCH (20:17)
[2019-09-01 06:00] VITALS: BP 145/88
[2019-09-01] MEDS: AMPICILLIN SOD/SULBACTAM SOD 3 GM in D5W MINI-BAG PLUS 100 ML IV SCH ×2 (06:29→11:39)
[2019-09-01] MEDS: GABAPENTIN 400 MG CAP PO SCH (08:30)
[2019-09-01] MEDS: methylPREDNISolone INJ 125 MG/2 ML VIAL (J2930) IV SCH (08:30)
[2019-09-01] MEDS: HEPARIN SOD (PORCINE) 5000 UNITS/ML VIAL SC SCH (08:30)
[2019-09-01] MEDS: KCL 20MEQ in NS 1000ML 1,000 ML IV SCH ×2 (08:31→10:06)
[2019-09-01] MEDS ORDERED: MIRALAX *UNIT DOSE* 17GM PACKET PO SCH (09:00)
[2019-09-01] MEDS: LEVOTHYROXINE 137MCG TABLET (0.137MG) PO SCH (10:03)
[2019-09-01] MEDS ORDERED: PRED10TA2 PO (12:16)
[2019-09-01] MEDS ORDERED: AUGM500T34 PO (12:21)
--- NOTE | 2019-09-01 12:49 | DSES ---
DATE OF ADMISSION: 08/28/2019 DATE OF DISCHARGE: 09/01/2019 PRIMARY CARE PROVIDER: Darlin Noel ATTENDING: Dr. Rice HISTORY/HOSPITAL COURSE: This is a 59-year-old female patient who presented to [facility] Emergency Room with left submandibular swelling. She noted that about ten days prior to her presentation she broke a left tooth on her lower left mouth and started feeling gum swelling and pain after that. She was seen in the emergency room and given amoxicillin, although the pain worsened as well as the swelling. She was seen in the emergency room and CT scan was done revealing increased soft tissue swelling with a concern for underlying abscess. Dr. Fowler was consulted and took the patient to the operating room where extraction of teeth #18, 19 and 20 were removed and the patient was placed on IV antibiotics, ampicillin and sulbactam, with improvement in her facial swelling. She was placed on hydrocortisone and this was transitioned over to Solu-Medrol and she will be discharged on prednisone taper. She will continue in the outpatient setting with amoxicillin clavulanate 500 mg by mouth three times a day times seven additional days. The patient has limited mobility that cannot be sufficiently resolved with the use of an appropriately fitted walker or cane and requiring wheelchair secondary to the patient having improved the access around her home and outside of her home and back and forth to appointments. This will improve her ability to provide her own independent self care within the home where she resides with her sister as her primary caregiver. DISCHARGE DIAGNOSES: 1. Dental abscess. 2. Obstructive sleep apnea. 3. Fibromyalgia. 4. Migraine headaches. 5. Deconditioning. 6. Gait instability. 7. History of epilepsy. 8. Breast cancer. 9. Coronary artery disease. DISCHARGE MEDICATIONS: - prednisone taper 40 mg daily times three days, then 30 mg times three days, then 20 mg times three days, then 10 mg times three days - Ventolin inhaler two puffs inhaled every 4 hours as needed for shortness of breath or wheezing - Augmentin 500 mg by mouth three times a day times seven additional days - anastrozole 1 mg by mouth daily - aspirin 81 mg every other day - atorvastatin 20 mg at bedtime - baclofen 10 mg by mouth three times a day as needed for muscle spasm - calcium 600 with D one tablet daily - Dexilant 60 mg daily - Depakote 500 mg at bedtime - Relpax 40 mg daily as needed for headache - Breo Ellipta 100/25 mcg one puff daily - gabapentin 800 mg by mouth three times a day - levothyroxine 137 mcg daily - Senokot one tablet daily - Sertraline 150 mg by mouth at bedtime DISCHARGE PLAN: To followup with her PCP in one week. Her activity should be as tolerated. Her diet should be regular. The patient should have outpatient testing for nocturnal hypoxia given her history of sleep apnea and noncompliance with CPAP. edited: 09/02/2019 0722 [place] HENSLEY
== END 2019-09-01 13:49 | disposition home or self-care (01) | DRG 159 ==
LOC: M ED 07:30 → M ED INP 10:18 → M MSPAV 11:11
PROVIDERS: ADMIT Internal Medicine; ATTEND Family Medicine
PROC: 0CDXXZ1 Extraction of Lower Tooth, Multiple, External Approach (ICD-10-PCS; principal; 2019-08-28 15:52)
DX: K12.2 Cellulitis and abscess of mouth (principal); G47.33 Obstructive sleep apnea (adult) (pediatric); M79.7 Fibromyalgia; G43.909 Migraine, unspecified, not intractable, without status migrainosus; R26.89 Other abnormalities of gait and mobility; G40.909 Epilepsy, unspecified, not intractable, without status epilepticus; I25.10 Atherosclerotic heart disease of native coronary artery without angina pectoris; Z85.3 Personal history of malignant neoplasm of breast; Z79.82 Long term (current) use of aspirin; Z79.899 Other long term (current) drug therapy; Z88.5 Allergy status to narcotic agent; Z91.041 Radiographic dye allergy status; Z91.040 Latex allergy status; F17.210 Nicotine dependence, cigarettes, uncomplicated

== ENCOUNTER 2020-03-16 10:06 | Inpatient (IN) | payer MEDICARE, MEDICAID ==
[~2020-03-16] VITALS: Ht 172.7 cm; Wt 77.2 kg
[~2020-03-16 10:06] MED LIST changes: +AUGM500T34 PO; +PRED10TA2 PO; +SENO8.6T5 PO
[2020-03-16 10:43] LABS: BASO # 0.1 10^3/uL (0.0-0.2); BASO % 1.1 % (0.0-1.0); EOS # 0.2 10^3/uL (0.0-0.5); EOS % 2.9 % (0.0-3.0); HEMATOCRIT 47.2 % (36.0-47.0); HEMOGLOBIN 15.5 g/dl (12.0-15.5); LYMPH # 1.8 10^3/uL (1.5-5.0); LYMPH % 28.2 % (24.0-44.0); MEAN CORPUSCULAR HEMOGLOBIN 32.9 pg (27.0-33.0); MEAN CORPUSCULAR HGB CONC 32.8 g/dl (32.0-36.5); MEAN CORPUSCULAR VOLUME 100.2 fl (80.0-96.0); MONO # 0.5 10^3/uL (0.0-0.8); MONO % 7.5 % (0.0-5.0); NEUTROPHILS # 3.8 10^3/uL (1.5-8.5); PLATELET COUNT, AUTOMATED 210 10^3/uL (150-450); RED BLOOD COUNT 4.71 10^6/uL (4.00-5.40); WHITE BLOOD COUNT 6.3 10^3/uL (4.0-10.0)
--- NOTE | 2020-03-16 10:49 | REP ---
CT brain: 03/16/2020. Indication: Stroke. Technique: Unenhanced axial CT images of the brain were obtained from skull base to vertex with coronal reconstructions provided. Comparison: 05/07/2015. Findings: There is no acute intracranial hemorrhage, acute cortical infarction, mass effect or hydrocephalous. Mild diffuse volume loss is present. Chronic right basal ganglia and left cerebellar lacunar infarctions are noted. There are patchy areas of cerebral hemisphere white matter hypoattenuation most consistent with chronic small vessel disease. Impression: No acute intracranial process. Sequelae of chronic microangiopathic ischemic disease and mild diffuse volume loss. Electronically Signed by Kelvin Greco DO 03/16/2020 10:40 A
[2020-03-16 11:11] LABS: CK-MB VALUE MASS < 1.0 NG/ML (<3.6); CPK CREATINE PHOSPHOKINASE 109 U/L (26-192); MB/CK RELATIVE INDEX 0.92 (< OR =4); TROPONIN I < 0.02 NG/ML (< 0.10)
--- NOTE | 2020-03-16 11:24 | REP ---
PORTABLE CHEST X-RAY: Single view. HISTORY: CVA. COMPARISON CHEST X-RAY: December 30, 2018. FINDINGS: Monitoring electrodes overlie the chest. The lungs are well inflated. No infiltrate is seen. There is mild linear plate-like atelectasis in the right base. Possible nodular opacity is seen projecting over the medial scapular border in the left upper lung zone. There are axillary surgical clips on the left. Heart is not enlarged. The aorta somewhat tortuous. IMPRESSION: Linear discoid atelectasis versus fibrosis right base. Question 1 cm nodular opacity left upper lobe versus bony overlap. Otherwise no acute disease. Consider chest CT. Electronically Signed by Marcelino Romero MD 03/16/2020 12:49 P
[2020-03-16 11:30] LABS: INR 0.89; PROTHROMBIN TIME 11.7 SECONDS (11.8-14.0)
[2020-03-16 11:31] LABS: PARTIAL THROMBOPLASTIN TIME 31.5 SECONDS (25.0-38.4)
[2020-03-16] MEDS ORDERED: ACETAMINOPHEN 325 MG TAB PO ONE (12:00)
[2020-03-16] MEDS ORDERED: ALL10TAB29 PO (12:38)
[2020-03-16] MEDS ORDERED: SILV50CR TOP (12:38)
[2020-03-16] MEDS ORDERED: GABA800T4 PO (12:38)
[2020-03-16] MEDS ORDERED: ALBUTEROL 90 MCG/ACT 8GM HFA INHALER INH PRN (13:30)
[2020-03-16] MEDS ORDERED: ASPIRIN 81 MG CHEW TABLET PO ONE (13:30)
[2020-03-16] MEDS ORDERED: BACLOFEN 10 MG TAB PO PRN (13:30)
--- NOTE | 2020-03-16 13:30 | HPEPDOC ---
General Date of Admission 03/16/20 Date of Service: Mar 16, 2020 Chief Complaint The patient is a 59-year-old female admitted with a reason for visit of Facial Numbness. Source: Patient Exam Limitations: No limitations Timing/Duration: 4-6 hours Severity: Mild History of Present Illness Patient is 59 years old female with past medical history of epilepsy, breast cancer currently on radiation therapy, stroke, [place], hyperlipidemia presented hospital with increased left-sided weakness and paresthesia over left part of her face. Patient stated that she woke up the morning around 7 AM with left facial numbness with paresthesias and increased left arm weakness. Of note patient had a stroke in 2009 with residual left-sided weakness. In emergency room CT head was negative. Patient stated that most of the symptoms became better, however she started complain of right moderate unilateral headache. The Patient denied any speech difficulties. Patient denied fever, chills, nausea, vomiting, diarrhea or dysuria. Home Medications Scheduled Anastrozole (Anastrozole) 1 Mg Tablet, 1 MG PO QHS, (Reported) Aspirin (Aspir 81) 81 Mg Tablet.dr, 81 MG PO Q2D, (Reported) Atorvastatin Calcium (Atorvastatin Calcium) 20 Mg Tablet, 20 MG PO DAILY, (Reported) Calcium Carb/Vit D3/Minerals (Calcium 600+D Plus Minerals Tb) 1 Each Tablet, 1 TAB PO DAILY, (Reported) Cetirizine HCl (Cetirizine HCl) 10 Mg Tablet, 10 MG PO QHS, (Reported) Dexlansoprazole (Dexilant) 60 Mg Cap.bp, 60 MG PO DAILY, (Reported) Divalproex Sodium (Depakote) 500 Mg Tablet.dr, 500 MG PO QHS, (Reported) Fluticasone/Vilanterol (Breo Ellipta 100-25 Mcg INH) 1 Each Blst.w.dev, 1 PUFF INH DAILY, (Reported) Gabapentin (Gabapentin) 800 Mg Tablet, 800 MG PO BID, (Reported) Levothyroxine Sodium (Levothyroxine Sodium) 137 Mcg Tablet, 137 MCG PO DAILY, (Reported) Sennosides (Senokot) 8.6 Mg Tablet, 17.2 TAB PO QHS, (Reported) Sertraline HCl (Sertraline HCl) 100 Mg Tablet, 150 MG PO QHS, (Reported) Silver Sulfadiazine (Ssd) 50 Gm Cream..g., 1 APLCT TOP TID, (Reported) APPLY TO FEET Scheduled PRN Albuterol Sulfate (Ventolin Hfa) 18 Gm Hfa.aer.ad, 2 PUFF INH Q4H PRN for SOB /WHEEZING, (Reported) Baclofen (Baclofen) 10 Mg Tablet, 10 MG PO TID PRN for MUSCLE SPASMS, (Reported) Eletriptan Hydrobromide (Relpax) 40 Mg Tablet, 40 MG PO DAILY PRN for HEADACHE, (Reported) Allergies Coded Allergies: Contrast Media (Unverified Allergy, Intermediate, Swelling/hives, 08/28/19) codeine (Verified Allergy, Intermediate, HANDS & FEET SWELLING, 08/22/19) TOLERATES MORPHINE latex (Verified Allergy, Intermediate, Swelling/hives, 08/28/19) Past Medical History Medical History [place] in 1985 epilepsy, breast cancer currently on radiation therapy, stroke, [place], hyperlipidemia Hypothyroidism Thyroid goiter Surgical History Cyst removal on her eyes Hysterectomy Oophorectomy bilateral Family History Mother has CHF, father has diabetes and coronary artery diseases Social History * Smoker: current smoker Alcohol: Denies Drugs: denies A-FIB/CHADSVASC A-FIB History Current/History of A-Fib/PAF?: No Current PO Anticoag Therapy: No Review of Systems Constitutional: Denies: Chills Eyes: Denies: Pain, Conjunctivae inflammation ENT: Denies: Head Aches Skin: Denies: Rash, Lesions Pulmonary: Denies: Dyspnea, Cough Cardiovascular: Denies: Chest Pain Gastrointestinal: Denies: Nausea, Vomiting Genitourinary: Denies: Frequency Hematologic: Denies: Bruising Endocrine: Denies: Polydipsia, Polyphagia Musculoskeletal: Denies: Neck Pain Neurological: Reports: Weakness (left arm), Numbness (left part of the face) Psych: Reports: Mood Normal Physical Examination General Exam: Positive: Alert Eye Exam: Positive: PERRLA, Conjunctiva & lids normal, Other Eye Symptoms (peripheral vision limitation bilaterally) ENT Exam: Positive: Atraumatic Neck Exam: Positive: Supple; Negative: JVD Chest Exam: Positive: Clear to auscultation Heart Exam: Positive: Rate Normal Telemetry: Positive: No significant arrhythmia Abdomen Exam: Positive: Normal bowel sounds Extremity Exam: Negative: Clubbing, Cyanosis Skin Exam: Positive: Nl turgor and temperature Neuro Exam: Positive: Normal Tone, Sensation Intact (decreased sensation over left mouth angle); Negative: Strength at 5/5 X4 ext (3/5 left hand and left leg) Psych Exam: Positive: Mental status NL Vital Signs Vital Signs Date Time Temp Pulse Resp B/P (MAP) Pulse Ox O2 Delivery O2 Flow Rate FiO2 03/16/20 12:15 68 18 136/75 (95) 94 Room Air 03/16/20 10:22 97.1 Laboratory Data Labs 24H Laboratory Tests 2 03/16/20 10:26: POC Glucose (Misc Panel) 91, POC Sodium (Misc Panel) 141, POC Potassium (Misc P alison) 4.9, POC Chloride (Misc Panel) 103, POC Total CO2 (Misc Panel) 29.0H, POC Blood Urea Nitrogen (Misc Panel 10, POC Ionized Calcium (Misc Panel) 4.5, POC Creatinine (Misc Panel) 0.6, POC Hematocrit (Misc Panel) 46.0 03/16/20 10:31: Immature Granulocyte % (Auto) 0.3, Neutrophils (%) (Auto) 60.0, Lymphocytes (%) (Auto) 28.2, Monocytes (%) (Auto) 7.5H, Eosinophils (%) (Auto) 2.9, Basophils (%) (Auto) 1.1H, Neutrophils # (Auto) 3.8, Lymphocytes # (Auto) 1.8, Monocytes # (Auto) 0.5, Eosinophils # (Auto) 0.2, Basophils # (Auto) 0.1, Nucleated Red Blood Cells % (auto) 0.0, Total Creatine Kinase 109, Creatine Kinase MB < 1.0, Creatine Kinase MB Relative Index 0.92, Troponin I < 0.02 03/16/20 11:11: Prothrombin Time 11.7L, Prothromb Time International Ratio 0.89, Activated Partial Thromboplast Time 31.5 03/16/20 12:19: Urine Color STRAW, Urine Appearance CLEAR, Urine pH 8.0, Urine Specific [place] 1.005, Urine Protein NEGATIVE, Urine Glucose (UA) NEGATIVE, Urine Ketones NEGATIVE, Urine Blood NEGATIVE, Urine Nitrite NEGATIVE, Urine Bilirubin NEGATIVE, Urine Urobilinogen 0.2, Urine Leukocyte Esterase NEGATIVE, Urine WBC (Auto) 1, Urine RBC (Auto) 0, Urine Hyaline Casts (Auto) 0, Urine Bacteria (Auto) 1+H, Urine Squamous Epithelial Cells 1, Urine Sperm (Auto) CBC/BMP Laboratory Tests 03/16/20 10:31 Assessment/Plan Patient is 59 years old female with past medical history of epilepsy, breast cancer currently on radiation therapy, stroke, [place], hyperlipidemia presented hospital with increased left-sided weakness and paresthesia over left part of her face. Patient stated that she woke up the morning around 7 AM with left facial numbness with paresthesias and increased left arm weakness. Of note patient had a stroke in 2009 with residual left-sided weakness. In emergency room CT head was negative. Patient stated that most of the symptoms became better. Patient denied any speech difficulties. Patient denied fever, chills, nausea, vomiting, diarrhea or dysuria. Problems (1) TIA (transient ischemic attack) Status: Acute Problem Text: Complaints of increased weakness associated with left facial paresthesias CT head negative Echo, MRA, MRI Carotid artery ultrasound Aspirin 325 Atorvastatin Appreciate/agree with neurologist consult Neuro check (2) Seizure disorder Status: Chronic Problem Text: Continue home regimen (3) Hypothyroidism Status: Chronic Problem Text: Continue levothyroxine Plan / VTE VTE Prophylaxis Ordered?: Yes JIMENA WAYNE DO Mar 16, 2020 13:30
[2020-03-16] MEDS ORDERED: ACETAMINOPHEN TAB 650MG DOSE (2X325MG) PO PRN (14:30)
[2020-03-16] MEDS: traMADol 50 MG TAB PO PRN (15:27)
[2020-03-16] MEDS ORDERED: SUMAtriptan SUCCINATE 25 MG TAB PO ONE ×2 (16:00→19:00)
--- NOTE | 2020-03-16 18:57 | REPVR ---
PROCEDURE INFORMATION: Exam: MR Head Without Contrast Exam date and time: 03/16/2020 6:26 PM Age: 59 years old Clinical indication: Altered mental status/memory loss; Confusion or disorientation; Patient HX: AMS; Additional info: Stroke TECHNIQUE: Imaging protocol: MR of the head without contrast. COMPARISON: CT Head without contrast 03/16/2020 10:28 AM FINDINGS: Brain: Multiple small acute infarcts in the left frontal anguiano radiata moderate chronic microvascular ischemic changes. Ventricles: Normal. No ventriculomegaly. Bones/joints: Unremarkable. Sinuses: Normal as visualized. No acute sinusitis. Mastoid air cells: Normal as visualized. No mastoid effusion. Orbits: Unremarkable. Soft tissues: Unremarkable. IMPRESSION: No acute intracranial abnormality. Electronically signed by: Brayan Andres On 03/16/2020 18:57:35 PM
--- NOTE | 2020-03-16 19:00 | REPVR ---
PROCEDURE INFORMATION: Exam: MR Angiogram Head Without Contrast, Arteries Exam date and time: 03/16/2020 6:27 PM Age: 59 years old Clinical indication: Cognitive deficit; Altered mental status; Patient HX: AMS; Additional info: Stroke TECHNIQUE: Imaging protocol: MR angiogram head without contrast. Exam focused on the arteries. 3D rendering: MIP and/or 3D reconstructed images were created by the technologist. COMPARISON: CT Head without contrast 03/16/2020 10:28 AM FINDINGS: Anterior cerebral arteries: Intracranial segment is patent with no significant stenosis. No aneurysm. Right internal carotid artery: Intracranial segment is patent with no significant stenosis. No aneurysm. Right middle cerebral artery: No occlusion or significant stenosis. No aneurysm. Right posterior cerebral artery: No occlusion or significant stenosis. No aneurysm. Right vertebral artery: No occlusion or significant stenosis. No aneurysm. Left internal carotid artery: Intracranial segment is patent with no significant stenosis. No aneurysm. Left middle cerebral artery: No occlusion or significant stenosis. No aneurysm. Left posterior cerebral artery: No occlusion or significant stenosis. No aneurysm. Left vertebral artery: No occlusion or significant stenosis. No aneurysm. Basilar artery: No occlusion or significant stenosis. No aneurysm. IMPRESSION: No acute abnormality. Electronically signed by: Brayan Andres On 03/16/2020 19:00:04 PM
[2020-03-16] MEDS ORDERED: MORPHINE 2 MG/ML 1ML VIAL (J2270) IV ONE (20:00)
[2020-03-16] MEDS: CETIRIZINE (ZyrTEC) 10 MG TAB PO SCH (20:17)
[2020-03-16] MEDS: SENOKOT S TAB PO SCH (20:17)
[2020-03-16] MEDS: GABAPENTIN 400 MG CAP PO SCH (20:17)
[2020-03-16] MEDS: HEPARIN SOD (PORCINE) 5000UNITS/ML VIAL (J1644 PER 1000UNITS) SC SCH (20:17)
[2020-03-16] MEDS: SERTRALINE HCL 50 MG TAB PO SCH (20:17)
[2020-03-16] MEDS: DIVALPROEX 500 MG TAB PO SCH (20:58)
[2020-03-16 22:00] VITALS: BP 150/75
--- NOTE | 2020-03-16 22:46 | REPVR ---
PROCEDURE INFORMATION: Exam: US Duplex Bilateral Extracranial Arteries Exam date and time: 03/16/2020 9:39 PM Age: 59 years old Clinical indication: Other: Stroke TECHNIQUE: Imaging protocol: Real-time Duplex ultrasound scan of the bilateral carotid and vertebral arteries combining torres scale, color Doppler and spectral waveform analysis. Bilateral exam. COMPARISON: CT Head without contrast 03/16/2020 10:28 AM FINDINGS: Right common carotid artery: Unremarkable. No occlusion or stenosis. Waveforms are normal. Right internal carotid artery: Unremarkable. No occlusion or stenosis. Waveforms are normal. Right ICA/CCA ratio: 0.76 Right external carotid artery: No stenosis in the origin. Right vertebral artery: Unremarkable. Antegrade flow. Left common carotid artery: Unremarkable. No occlusion or stenosis. Waveforms are normal. Left internal carotid artery: Unremarkable. No occlusion or stenosis. Waveforms are normal. Left ICA/CCA ratio: 1.34 Left external carotid artery: No stenosis in the origin. Left vertebral artery: Unremarkable. Antegrade flow. IMPRESSION: Mild stenosis(less than 50%) of bilateral internal carotid arteries. REFERENCES: SRU CRITERIA. The degree of internal carotid artery stenosis is based on criteria defined by the Society of Radiologists in Ultrasound (SRU). Normal is no stenosis. Mild is less than 50% stenosis. Moderate is 50-69% stenosis. Severe is greater than 69% stenosis to near occlusion. Near occlusion is a markedly narrowed lumen. Total occlusion is no detectable patent lumen. Electronically signed by: Brayan Andres On 03/16/2020 22:46:11 PM
[2020-03-17 06:00] VITALS: BP 128/85
[2020-03-17] MEDS: LEVOTHYROXINE 137MCG TABLET (0.137MG) PO SCH (06:16)
[2020-03-17 07:01] LABS: HEMATOCRIT 47.1 % (36.0-47.0); HEMOGLOBIN 15.6 g/dl (12.0-15.5); MEAN CORPUSCULAR HEMOGLOBIN 33.3 pg (27.0-33.0); MEAN CORPUSCULAR HGB CONC 33.1 g/dl (32.0-36.5); MEAN CORPUSCULAR VOLUME 100.4 fl (80.0-96.0); PLATELET COUNT, AUTOMATED 205 10^3/uL (150-450); RED BLOOD COUNT 4.69 10^6/uL (4.00-5.40); WHITE BLOOD COUNT 5.1 10^3/uL (4.0-10.0)
[2020-03-17 07:24] LABS: BLOOD UREA NITROGEN 9 MG/DL (7-18); CALCIUM LEVEL 8.5 MG/DL (8.5-10.1); CARBON DIOXIDE LEVEL 26 MEQ/L (21-32); CHLORIDE LEVEL 109 MEQ/L (98-107); CREATININE FOR GFR 0.56 MG/DL (0.55-1.30); GLOMERULAR FILTRATION RATE > 60.0 (>51); GLUCOSE, FASTING 91 MG/DL (70-100); MAGNESIUM LEVEL 2.2 MG/DL (1.8-2.4); POTASSIUM SERUM 3.7 MEQ/L (3.5-5.1); SODIUM LEVEL 140 MEQ/L (136-145)
--- NOTE | 2020-03-17 08:01 | ECGEPIP ---
[facility] - ED Test Date: 2020-03-16 Pat Name: RAFITA MARSHALL Department: Room: - Gender: Female Transplanter: puja : 1960 Requested By: Janeth Robert Order Number: [id number] Reading MD: Janeth Robert Measurements Intervals Cylinder Rate: 63 P: 42 ID: [id number] QRS: 72 QRSD: 74 T: 9 QT: 432 QTc: 442 Interpretive Statements SINUS RHYTHM NSTTW abnormalities DECREASED RATE 12/30/18 Electronically Signed on 03-17-2020 8:01:29 EDT by Janeth Robert
[2020-03-17] MEDS: HEPARIN SOD (PORCINE) 5000UNITS/ML VIAL (J1644 PER 1000UNITS) SC SCH ×2 (09:11→20:15)
[2020-03-17] MEDS: ATORVASTATIN 20 MG TAB PO SCH (09:11)
[2020-03-17] MEDS: GABAPENTIN 400 MG CAP PO SCH ×2 (09:11→20:14)
[2020-03-17] MEDS: ASPIRIN 81 MG CHEW TABLET PO SCH (09:11)
[2020-03-17] MEDS ORDERED: MIRALAX *UNIT DOSE* 17GM PACKET PO PRN (13:15)
[2020-03-17 14:00] VITALS: BP 112/65
--- NOTE | 2020-03-17 14:16 | IPNPDOC ---
Text Note Date of Service The patient was seen on 03/17/20. NOTE Subjective: Patient stated that left-sided weakness became better, left-sided face paresthesias resolved. Objective: VITAL SIGNS: Please see below. GENERAL: awake, alert, NAD HEENT: NCAT, anicteric sclera, ROSANA NECK: supple, no JVD CARDIOVASCULAR EXAMINATION: NS1S2, regular rate/rhythm RESPIRATORY EXAMINATION: CTA b/l, no wheezes/rales/rhonchi ABDOMINAL EXAMINATION: positive bowel sounds x 4, NT EXTREMITIES: no cyanosis, clubbing, edema SKIN: warm, no rashes. NEUROLOGICAL EXAMINATION: Strength at 5/5 X4 ext (3/5 left hand and left leg), slightly decreased sensation over left mouth angle PSYCHIATRIC EXAMINATION: calm, normal affect Assessment/Plan Patient is 59 years old female with past medical history of epilepsy, breast cancer currently on radiation therapy, stroke, [place], hyperlipidemia presented hospital with increased left-sided weakness and paresthesia over left part of her face. Patient stated that she woke up the morning around 7 AM with left facial numbness with paresthesias and increased left arm weakness. Of note patient had a stroke in 2009 with residual left-sided weakness. In emergency room CT head was negative. Patient stated that most of the symptoms became better. Patient denied any speech difficulties. Patient denied fever, chills, nausea, vomiting, diarrhea or dysuria. Problems CVA MRI shows Multiple small acute infarcts in the left frontal anguiano radiata moderate chronic microvascular ischemic changes Patient had a history of CVA, she is active smoker ABCD2 score showed probability for second stroke 9.8% for next 3 months Continue with Aspirin 325 Atorvastatin Telemetry showed normal sinus rhythm Echo done, report pending PT/OT recommended home with home health Continue observation for 72 hours in total (2) Seizure disorder Continue home regimen (3) Hypothyroidism Continue levothyroxine VS,Fishbone, I+O VS, Fishbone, I+O Laboratory Tests 03/17/20 06:39 Vital Signs Date Time Temp Pulse Resp B/P (MAP) Pulse Ox O2 Delivery O2 Flow Rate FiO2 03/17/20 06:00 98.0 72 17 128/85 (99) 95 Room Air I&O- Last 24 Hours up to 6 AM 03/17/20 06:00 Intake Total 655 ml Balance 655 ml JIMENA WAYNE DO Mar 17, 2020 14:16
--- NOTE | 2020-03-17 14:35 | ECHO ---
DATE OF PROCEDURE: 03/16/2020 DATE OF : 1960 AGE: 59 REFERRING PROVIDER: Dr. Siddiqui PATIENT LOCATION: Room 4223 REASON FOR STUDY: CVA 2-D MEASUREMENTS: IVS: 1.1 cm LV: 5.2 cm LVPW: 1.1 cm LA: 3.7 cm Aorta: 3.8 cm IVC: 1.9 cm DOPPLER MEASUREMENTS: Peak velocity across the aortic valve: 1.1 m/s Peak velocity across the LVOT: 0.9 m/s Mitral E: 0.76 Mitral A: 1.0 Ratio: 0.7 2-D COMMENTS: 1. Normal left ventricular size, wall thickness, and normal global left ventricular systolic function. The estimated left ventricular systolic ejection fraction is 60-65%. 2. Normal left atrium. Normal right atrium and right ventricle noted in limited views. The right ventricular free wall thickness appeared to be consistent with right ventricular hypertrophy. 3. The atrial septum appeared to be normal without evidence of defect or shunt. 4. Mildly enlarged aortic root at 3.8 cm. 5. A small pericardial and was noted, no evidence of cardiac tamponade. 6. Mildly calcified aortic valve with normal leaflet excursion. Normal mitral valve and tricuspid valve. The pulmonic valve and proximal pulmonary artery branches were not well visualized. 7. The inferior vena cava was normal in size, central venous pressure is most likely normal. 8. Bubble study was done with agitated normal saline, but not well visualized in the right heart chambers. IMPRESSION: 1. Normal global left ventricular systolic function. There are some features of left ventricular diastolic dysfunction manifested by abnormal relaxation. 2. Aortic valve sclerosis without stenosis or aortic regurgitation. 3. Trace mitral regurgitation. 4. A small pericardial effusion was noted, no evidence of cardiac tamponade. 5. There are findings consistent with right ventricular systolic hypertrophy. Right ventricular systolic function appeared to be normal. 6. Bubble study was done with agitated normal saline, but not well visualized in the right heart chambers. Bubble study for was nondiagnostic.
[2020-03-17] MEDS: CALCIUM/VITAMIN D 500 MG TAB PO SCH (16:20)
[2020-03-17] MEDS: SERTRALINE HCL 50 MG TAB PO SCH (20:14)
[2020-03-17] MEDS: SENOKOT S TAB PO SCH (20:14)
[2020-03-17] MEDS: DIVALPROEX 500 MG TAB PO SCH (20:14)
[2020-03-17] MEDS: CETIRIZINE (ZyrTEC) 10 MG TAB PO SCH (20:14)
[2020-03-17] MEDS: traMADol 50 MG TAB PO PRN (21:48)
[2020-03-17 22:00] VITALS: BP 146/76
[2020-03-18] MEDS: LEVOTHYROXINE 137MCG TABLET (0.137MG) PO SCH (05:47)
[2020-03-18 06:00] VITALS: BP 133/78
[2020-03-18] MEDS: CALCIUM/VITAMIN D 500 MG TAB PO SCH (10:01)
[2020-03-18] MEDS: ATORVASTATIN 20 MG TAB PO SCH (10:01)
[2020-03-18] MEDS: ASPIRIN 81 MG CHEW TABLET PO SCH (10:01)
[2020-03-18] MEDS: GABAPENTIN 400 MG CAP PO SCH (10:01)
[2020-03-18] MEDS: HEPARIN SOD (PORCINE) 5000UNITS/ML VIAL (J1644 PER 1000UNITS) SC SCH (10:02)
[2020-03-18] MEDS ORDERED: ATOR40TA75 PO (12:44)
[2020-03-18] MEDS ORDERED: ASPI81CH8 PO (12:44)
[2020-03-18 14:00] VITALS: BP 132/92
--- NOTE | 2020-03-18 17:48 | DS.PDOC ---
Discharge Summary General Date of Admission Mar 16, 2020 at 12:59 Date of Discharge 03/18/20 Discharge Summary PROCEDURES PERFORMED DURING STAY: [None]. ADMITTING DIAGNOSES: CVA Seizure disorder Hypothyroidism DISCHARGE DIAGNOSES: CVA Seizure disorder Hypothyroidism COMPLICATIONS/CHIEF COMPLAINT: Transient Ischemic Attack. HISTORY OF PRESENT ILLNESS: Patient is 59 years old female with past medical history of epilepsy, breast cancer currently on radiation therapy, stroke, [place], hyperlipidemia presented hospital with increased left-sided weakness and paresthesia over left part of her face. Patient stated that she woke up the morning around 7 AM with left facial numbness with paresthesias and increased left arm weakness. Of note patient had a stroke in 2009 with residual left-sided weakness. In emergency room CT head was negative. Patient stated that most of the symptoms became better. Patient denied any speech difficulties. Patient denied fever, chills, nausea, vomiting, diarrhea or dysuria. HOSPITAL COURSE: During hospital stay following issues addressed CVA MRI shows Multiple small acute infarcts in the left frontal anguiano radiata moderate chronic microvascular ischemic changes Patient had a history of CVA, she is active smoker ABCD2 score showed probability for second stroke 9.8% for next 3 months Continue with Aspirin 325 Atorvastatin Telemetry showed normal sinus rhythm Echo done, report below PT/OT recommended home with home health Continue observation for 72 hours in total (2) Seizure disorder Continue home regimen (3) Hypothyroidism Continue levothyroxine DISCHARGE MEDICATIONS: Please see below. ALLERGIES: Please see below. PHYSICAL EXAMINATION ON DISCHARGE: VITAL SIGNS: Please see below. GENERAL: awake, alert, NAD HEENT: NCAT, anicteric sclera, ROSANA NECK: supple, no JVD CARDIOVASCULAR EXAMINATION: NS1S2, regular rate/rhythm RESPIRATORY EXAMINATION: CTA b/l, no wheezes/rales/rhonchi ABDOMINAL EXAMINATION: positive bowel sounds x 4, NT EXTREMITIES: no cyanosis, clubbing, edema SKIN: warm, no rashes. NEUROLOGICAL EXAMINATION: Strength at 5/5 X4 ext (3/5 left hand and left leg), slightly decreased sensation over left mouth angle PSYCHIATRIC EXAMINATION: calm, normal affect LABORATORY DATA: Please see below. IMAGING: [facility] NAME: RAFITA MARSHALL : 1960 MEDICAL REC #: [id number] ROOM: [facility] ACCOUNT: [id number] ORDERING DOCTOR: JIMENA DROZHZHIN DO PATIENT STATUS: ADM IN DICTATING DOCTOR: TANIA BURKS MD REPORT #: [id number] cc: [~ rep ct ivnm] ECHOCARDIOGRAM-DOPPLER REPORT Printed: [~ rep prt dt last] [~ rep prt tm last] Page 2 of [address] [address] ECHOCARDIOGRAM-DOPPLER REPORT ECHOCARDIOGRAM-DOPPLER REPORT Printed: [~ rep prt dt last] [~ rep prt tm last] Page 1 of 2 DOPPLER MEASUREMENTS: Peak velocity across the aortic valve: 1.1 m/s Peak velocity across the LVOT: 0.9 m/s Mitral E: 0.76 Mitral A: 1.0 Ratio: 0.7 2-D COMMENTS: 1. Normal left ventricular size, wall thickness, and normal global left ventricular systolic function. The estimated left ventricular systolic ejection fraction is 60-65%. 2. Normal left atrium. Normal right atrium and right ventricle noted in limited views. The right ventricular free wall thickness appeared to be consistent with right ventricular hypertrophy. 3. The atrial septum appeared to be normal without evidence of defect or shunt. 4. Mildly enlarged aortic root at 3.8 cm. 5. A small pericardial and was noted, no evidence of cardiac tamponade. 6. Mildly calcified aortic valve with normal leaflet excursion. Normal mitral valve and tricuspid valve. The pulmonic valve and proximal pulmonary artery branches were not well visualized. 7. The inferior vena cava was normal in size, central venous pressure is most likely normal. 8. Bubble study was done with agitated normal saline, but not well visualized in the right heart chambers. IMPRESSION: 1. Normal global left ventricular systolic function. There are some features of left ventricular diastolic dysfunction manifested by abnormal relaxation. 2. Aortic valve sclerosis without stenosis or aortic regurgitation. 3. Trace mitral regurgitation. 4. A small pericardial effusion was noted, no evidence of cardiac tamponade. 5. There are findings consistent with right ventricular systolic hypertrophy. Right ventricular systolic function appeared to be normal. 6. Bubble study was done with agitated normal saline, but not well visualized in the right heart chambers. Bubble study for was nondiagnostic. DD: TANIA BURKS MD 03/17/20 [id number] DT: TREE 03/17/20 1420 DS: DS2: [~ rep ct labl] PROGNOSIS: Fair ACTIVITY: [As tolerated]. DIET: Regular DISPOSITION: 01 Home, Self-Care. DISCHARGE INSTRUCTIONS: Stop smoking ITEMS TO FOLLOWUP ON ON OUTPATIENT: With neurologist and PCP DISCHARGE CONDITION: [Stable]. TIME SPENT ON DISCHARGE: Greater [id number]. Vital Signs/I&Os Vital Signs Date Time Temp Pulse Resp B/P (MAP) Pulse Ox O2 Delivery O2 Flow Rate FiO2 03/18/20 14:00 98.1 81 17 132/92 (105) 93 Room Air I&O- Last 24 Hours up to 6 AM 03/18/20 06:00 Intake Total 1080 ml Output Total 2175 ml Balance -1095 ml Discharge Medications Scheduled Anastrozole (Anastrozole) 1 Mg Tablet, 1 MG PO QHS, (Reported) Aspirin (Children's Aspirin) 81 Mg Tab.chew, 324 MG PO DAILY Atorvastatin Calcium (Atorvastatin Calcium) 40 Mg Tablet, 40 MG PO DAILY Calcium Carb/Vit D3/Minerals (Calcium 600+D Plus Minerals Tb) 1 Each Tablet, 1 TAB PO DAILY, (Reported) Cetirizine HCl (Cetirizine HCl) 10 Mg Tablet, 10 MG PO QHS, (Reported) Dexlansoprazole (Dexilant) 60 Mg Cap.bp, 60 MG PO DAILY, (Reported) Divalproex Sodium (Depakote) 500 Mg Tablet.dr, 500 MG PO QHS, (Reported) Fluticasone/Vilanterol (Breo Ellipta 100-25 Mcg INH) 1 Each Blst.w.dev, 1 PUFF INH DAILY, (Reported) Gabapentin (Gabapentin) 800 Mg Tablet, 800 MG PO BID, (Reported) Levothyroxine Sodium (Levothyroxine Sodium) 137 Mcg Tablet, 137 MCG PO DAILY, (Reported) Sennosides (Senokot) 8.6 Mg Tablet, 17.2 MG PO QHS, (Reported) Sertraline HCl (Sertraline HCl) 100 Mg Tablet, 150 MG PO QHS, (Reported) Silver Sulfadiazine (Ssd) 50 Gm Cream..g., 1 APLCT TOP TID, (Reported) APPLY TO FEET Scheduled PRN Albuterol Sulfate (Ventolin Hfa) 18 Gm Hfa.aer.ad, 2 PUFF INH Q4H PRN for SOB/WHEEZING, (Reported) Baclofen (Baclofen) 10 Mg Tablet, 10 MG PO TID PRN for MUSCLE SPASMS, (Reported) Eletriptan Hydrobromide (Relpax) 40 Mg Tablet, 40 MG PO DAILY PRN for HEADACHE, (Reported) Allergies Coded Allergies: Contrast Media (Unverified Allergy, Intermediate, Swelling/hives, 08/28/19) codeine (Verified Allergy, Intermediate, HANDS & FEET SWELLING, 08/22/19) TOLERATES MORPHINE latex (Verified Allergy, Intermediate, Swelling/hives, 08/28/19) JIMENA WAYNE DO Mar 18, 2020 17:48
== END 2020-03-18 15:04 | disposition home or self-care (01) | DRG 65 ==
LOC: M ED 10:06 → M ED INP 12:59 → M MSPAV 14:56
PROVIDERS: ADMIT Internal Medicine; ATTEND Internal Medicine
DX: I63.9 Cerebral infarction, unspecified (principal); I69.354 Hemiplegia and hemiparesis following cerebral infarction affecting left non-dominant side; G40.909 Epilepsy, unspecified, not intractable, without status epilepticus; E03.9 Hypothyroidism, unspecified; I25.2 Old myocardial infarction; E78.5 Hyperlipidemia, unspecified; C50.919 Malignant neoplasm of unspecified site of unspecified female breast; F17.200 Nicotine dependence, unspecified, uncomplicated; Z79.82 Long term (current) use of aspirin; Z79.899 Other long term (current) drug therapy; Z91.041 Radiographic dye allergy status; Z88.5 Allergy status to narcotic agent; Z91.040 Latex allergy status; Z92.3 Personal history of irradiation

== ENCOUNTER → 2020-06-19 | Outpatient (CLI) | payer MEDICARE, MEDICAID ==
[~2020-06-19] MED LIST changes: +ASPI81CH8 PO; -ASPI81TA85 PO; +ASPI81TA86 PO; +ATOR40TA75 PO; +CETI-24 PO; +GABA800T4 PO; +SILV50CR TOP
[2020-06-19 15:35] LABS: BASO # 0.1 10^3/uL (0.0-0.2); EOS # 0.1 10^3/uL (0.0-0.5); EOS % 2.2 % (0.0-3.0); HEMATOCRIT 45.2 % (36.0-47.0); HEMOGLOBIN 14.9 g/dl (12.0-15.5); LYMPH # 1.5 10^3/uL (1.5-5.0); LYMPH % 29.4 % (24.0-44.0); MEAN CORPUSCULAR HEMOGLOBIN 33.4 pg (27.0-33.0); MEAN CORPUSCULAR VOLUME 101.3 fl (80.0-96.0); MONO # 0.4 10^3/uL (0.0-0.8); MONO % 8.3 % (0.0-5.0); NEUTROPHILS % 58.9 % (36.0-66.0); PLATELET COUNT, AUTOMATED 185 10^3/uL (150-450); RED BLOOD COUNT 4.46 10^6/uL (4.00-5.40)
[2020-06-19 16:02] LABS: ALBUMIN 3.2 GM/DL (3.2-5.2); ALT/SGPT 12 U/L (12-78); BILIRUBIN,TOTAL 0.2 MG/DL (0.2-1.0); BLOOD UREA NITROGEN 9 MG/DL (7-18); CALCIUM LEVEL 9.1 MG/DL (8.5-10.1); CARBON DIOXIDE LEVEL 29 MEQ/L (21-32); CHLORIDE LEVEL 107 MEQ/L (98-107); CHOLESTEROL LEVEL 164 MG/DL (<200); CHOLESTEROL RISK RATIO 2.981 (<5); CREATININE FOR GFR 0.55 MG/DL (0.55-1.30); FREE T4 0.67 NG/DL (0.76-1.46); GLOMERULAR FILTRATION RATE > 60.0 (>51); GLUCOSE, FASTING 91 MG/DL (70-100); HDL CHOLESTEROL 55 MG/DL (>40); LDL CHOLESTEROL 83 MG/DL (<100); NON-HDL-C 109 MG/DL; POTASSIUM SERUM 3.7 MEQ/L (3.5-5.1); SODIUM LEVEL 141 MEQ/L (136-145); TOTAL PROTEIN 6.4 GM/DL (6.4-8.2); TRIGLYCERIDES LEVEL 131 MG/DL (<150); VALPROIC ACID (DEPAKOTE) 41.3 UG/ML (50.0-100.0)
[2020-06-19 16:04] LABS: TOTAL 25(OH) VITAMIN D 36.8 NG/ML (30.0-100.0)
[2020-06-19 17:52] LABS: HEMOGLOBIN A1c 5.3 %
== END ==
LOC: M PLALAB 14:07
PROVIDERS: ATTEND Nurse Practitioner Family
DX: G40.919 Epilepsy, unspecified, intractable, without status epilepticus (principal); E03.9 Hypothyroidism, unspecified; E78.5 Hyperlipidemia, unspecified; R53.1 Weakness; E55.9 Vitamin D deficiency, unspecified; Z86.73 Personal history of transient ischemic attack (TIA), and cerebral infarction without residual deficits; Z79.899 Other long term (current) drug therapy

== ENCOUNTER → 2020-07-05 | Outpatient (REF) | payer MEDICARE, MEDICAID ==
[2020-07-05 18:30] LABS: THYROID STIMULATING HORMONE 4.91 uIU/ML (0.358-3.740)
== END ==
LOC: M SFHCPLAZ 14:25
PROVIDERS: ATTEND Family Medicine
DX: E03.9 Hypothyroidism, unspecified (principal); Z23 Encounter for immunization
CPT/HCPCS: 36415; 84439; 84443; 90682; G0008; G0463

== ENCOUNTER → 2020-08-30 | Outpatient (REF) | payer MEDICARE, MEDICAID ==
[2020-08-30 15:00] LABS: CRYSTALS, BODY FLUID NONE SEEN (NONE SEEN); SOURCE, BODY FLUID CRYSTALS RT KNEE
[2020-08-30 15:45] LABS: SOURCE, BODY FLUID RT KNEE; SYNOVIAL FLUID COLOR YELLOW (YELLOW)
[2020-08-30 16:17] LABS: SOURCE, BODY FLUID GLUCOSE RT KNEE
[2020-08-31 09:11] LABS: BODY FLUID RHEUMATOID SCREEN NEGATIVE (NEGATIVE)
[2020-08-31 09:13] LABS: MUCIN CLOT TEST 4+ (4+)
== END ==
LOC: M LAB REF 13:23
PROVIDERS: ATTEND Physical Medicine & Rehabilitation
DX: M17.11 Unilateral primary osteoarthritis, right knee (principal)

== ENCOUNTER → 2021-01-02 | Outpatient (REF) | payer MEDICARE, MEDICAID ==
[2021-01-02 13:56] LABS: BASO # 0.1 10^3/uL (0.0-0.2); BASO % 1.2 % (0.0-1.0); EOS # 0.1 10^3/uL (0.0-0.5); HEMATOCRIT 47.5 % (36.0-47.0); HEMOGLOBIN 15.5 g/dl (12.0-15.5); LYMPH # 1.9 10^3/uL (1.5-5.0); MEAN CORPUSCULAR HEMOGLOBIN 34.1 pg (27.0-33.0); MEAN CORPUSCULAR HGB CONC 32.6 g/dl (32.0-36.5); MEAN CORPUSCULAR VOLUME 104.4 fl (80.0-96.0); MONO # 0.5 10^3/uL (0.0-0.8); NEUTROPHILS % 53.4 % (36.0-66.0); PLATELET COUNT, AUTOMATED 190 10^3/uL (150-450); RED BLOOD COUNT 4.55 10^6/uL (4.00-5.40); WHITE BLOOD COUNT 5.6 10^3/uL (4.0-10.0)
[2021-01-02 14:30] LABS: HEMOGLOBIN A1c 5.6 %
[2021-01-02 14:33] LABS: ALBUMIN 3.5 GM/DL (3.2-5.2); ALT/SGPT 14 U/L (12-78); BILIRUBIN,TOTAL 0.1 MG/DL (0.2-1.0); BLOOD UREA NITROGEN 8 MG/DL (7-18); CARBON DIOXIDE LEVEL 32 MEQ/L (21-32); CHLORIDE LEVEL 109 MEQ/L (98-107); CHOLESTEROL LEVEL 166 MG/DL (<200); CHOLESTEROL RISK RATIO 3.192 (<5); CREATININE FOR GFR 0.56 MG/DL (0.55-1.30); FREE T4 1.12 NG/DL (0.76-1.46); GLOMERULAR FILTRATION RATE > 60.0 (>51); GLUCOSE, FASTING 70 MG/DL (70-100); HDL CHOLESTEROL 52 MG/DL (>40); LDL CHOLESTEROL 86 MG/DL (<100); NON-HDL-C 114 MG/DL; POTASSIUM SERUM 4.1 MEQ/L (3.5-5.1); SODIUM LEVEL 141 MEQ/L (136-145); TOTAL PROTEIN 6.4 GM/DL (6.4-8.2); TRIGLYCERIDES LEVEL 140 MG/DL (<150)
[2021-01-02 14:35] LABS: PTH INTACT 66.1 PG/ML (18.5-88.0); TOTAL 25(OH) VITAMIN D 27.3 NG/ML (30.0-100.0)
[2021-01-02 14:36] LABS: FOLATE 6.9 NG/ML (>5.4); VITAMIN B12 LEVEL 391 PG/ML (247-911)
== END ==
LOC: M SFHCPLAZ 12:12
PROVIDERS: ATTEND Nurse Practitioner Family
DX: M79.604 Pain in right leg (principal); M79.2 Neuralgia and neuritis, unspecified; E03.9 Hypothyroidism, unspecified; E55.9 Vitamin D deficiency, unspecified; E78.5 Hyperlipidemia, unspecified; D75.89 Other specified diseases of blood and blood-forming organs; Z79.899 Other long term (current) drug therapy

== ENCOUNTER → 2021-01-08 | Outpatient (CLI) | payer MEDICARE, MEDICAID ==
--- NOTE | 2021-01-08 12:36 | REPMRS ---
Patient History The patient states she had a clinical breast exam in 04/2020 Patient is postmenopausal, has history of breast cancer at age 58, and has history of ovarian cancer at age 26. Family history of breast cancer at age 50 or over in maternal aunt. Excisional biopsy of the left breast, February 14, 2019. Radiation therapy of the left breast, 2019. Taking raloxifene for 2 years. 3D TOMOSYNTHESIS WAS PERFORMED. Volpara breast density b. Digital Woman Screen Mammo: January 08, 2021 - Exam #: [id number] Bilateral CC and MLO view(s) were taken. Technologist: Harnii Murphy, Technologist Prior study comparison: January 21, 2016, bilateral digital mammo screening bilat, performed at [facility]. January 01, 2015, bilateral digital mammo screening bilat, performed at [facility]. FINDINGS: There are scattered fibroglandular densities. There is a fairly symmetric fibroglandular pattern in both breasts. There has been no interval development of masses, areas of architectural distortion or clusters of microcalcifications typical of malignancy. There are postsurgical and post radiation changes again seen on the left. Assessment: BI-RADS/ACR category 2 mammogram. Benign Findings. Recommendation Routine screening mammogram of both breasts in 1 year (for women over age 40). This mammogram was interpreted with the aid of an FDA-approved computer-aided dectection system. Electronically Signed By: Deniz Foley MD 01/08/21 0910
== END ==
LOC: M WHC 07:46
PROVIDERS: ATTEND Nurse Practitioner Family
DX: Z12.31 Encounter for screening mammogram for malignant neoplasm of breast (principal); Z85.3 Personal history of malignant neoplasm of breast; Z78.0 Asymptomatic menopausal state

== ENCOUNTER → 2021-01-14 | Outpatient (CLI) | payer MEDICARE, MEDICAID ==
--- NOTE | 2021-01-14 16:53 | REP ---
INDICATION: LACIE LEG PAIN COMPARISON: 04/14/2018 TECHNIQUE: Foley scale and color Doppler evaluation bilateral lower extremity using linear high frequency transducer. FINDINGS: Ultrasound examination of the right and left lower extremity deep venous structures from the common femoral vein to the popliteal vein demonstrates normal compressibility flow and wave patterns in response to respiration and augmentation. There is no evidence for deep venous thrombosis. IMPRESSION: No evidence for deep venous thrombosis. <Electronically signed by Omkar Her > 01/14/21 [id number]
--- NOTE | 2021-01-14 16:56 | REP ---
INDICATION: PAIN COMPARISON: None. TECHNIQUE: Real time foley scale and color Doppler evaluation of the bilateral lower extremity arterial vasculature using linear high frequency transducer. FINDINGS: Foley scale and color images demonstrate mild amounts of atheromatous plaquing with areas of minimal narrowing but no focal stenosis identified. Doppler interrogation demonstrates normal arterial wave forms and velocities bilaterally. Triphasic wave patterns are noted from the bilateral common femoral arteries to the distal superficial femoral artery followed by beam biphasic arterial wave patterns from the bilateral popliteal arteries through the remainder of the examination. Right LU: 1.4 Left LU: 1.4 Peak systolic velocities (cm/sec) Common femoral artery: Right 170; Left 183 Profunda femoris: Right 141; Left 117 SFA (proximal): Right 163; Left 170 SFA (mid): Right 139; Left 127 SFA (distal): Right 93; Left 111 Popliteal artery: Right 67; Left 75 KATARINA (prox.): Right 68; Left 62 Tibioperoneal trunk: Right 69; Left 51 CHROME PLATER (prox.): Right 48; Left 39 CHROME PLATER (distal): Right 72; Left 56 KATARINA (distal): Right 68; Left 68 IMPRESSION: Mild bilateral atheromatous changes without focal areas of stenosis or occlusion. <Electronically signed by Omkar Her > 01/14/21 [id number]
== END ==
LOC: M RAD 15:18
PROVIDERS: ATTEND Nurse Practitioner Family
DX: M79.604 Pain in right leg (principal); M79.605 Pain in left leg

== ENCOUNTER → 2021-02-19 | Outpatient (CLI) | payer MEDICARE, OTHER ==
--- NOTE | 2021-02-19 10:01 | REP ---
INDICATION: LUNG CANCER SCREENING COMPARISON: 12/13/2018, 07/20/2018 TECHNIQUE: Axial noncontrast images from the thoracic inlet to the upper abdomen using low-dose lung screening technique (LDCT). FINDINGS: Lung higgins demonstrate COPD/emphysematous changes with scattered mildly progressive scarring somewhat increased from prior examination. There is no acute consolidation, significant nodule or mass lesion. No pleural effusion. No pneumothorax. Tracheobronchial tree is patent. IMPRESSION: Lung-RADS category 2. Chronic stable changes. Management recommendations include annual low-dose CT surveillance. <Electronically signed by Omkar Her > 02/19/21 [id number]
== END ==
LOC: M RAD 09:41
PROVIDERS: ATTEND Nurse Practitioner Family
DX: Z12.2 Encounter for screening for malignant neoplasm of respiratory organs (principal)

== ENCOUNTER → 2021-04-19 | Outpatient (CLI) | payer MEDICARE, OTHER, MEDICAID ==
[~2021-04-19] MED LIST changes: -DOXY100C37 PO; +DOXY1CAP62 PO
--- NOTE | 2021-04-19 08:56 | REP ---
INDICATION: R14.0 ABDOMINAL BLOATING. COMPARISON: Comparison KUB study November 29, 2018.. TECHNIQUE: Two supine views the abdomen are provided. FINDINGS: Bowel gas pattern is unremarkable with air and stool in a nondistended colon. No large or small bowel dilation is seen. Psoas margins and flank stripes are intact. There is minimal vascular calcification. No mass, organomegaly, or pathologic calcification is seen. IMPRESSION: Negative KUB. Normal bowel gas pattern. <Electronically signed by Jeovany Romero > 04/19/21 0840
[2021-04-19 10:12] LABS: BASO # 0.1 10^3/uL (0.0-0.2); BASO % 1.1 % (0.0-1.0); EOS # 0.2 10^3/uL (0.0-0.5); EOS % 2.6 % (0.0-3.0); HEMATOCRIT 50.4 % (36.0-47.0); HEMOGLOBIN 16.2 g/dl (12.0-15.5); LYMPH # 1.7 10^3/uL (1.5-5.0); MEAN CORPUSCULAR HEMOGLOBIN 32.7 pg (27.0-33.0); MEAN CORPUSCULAR HGB CONC 32.1 g/dl (32.0-36.5); MEAN CORPUSCULAR VOLUME 101.8 fl (80.0-96.0); MONO # 0.7 10^3/uL (0.0-0.8); MONO % 10.7 % (2.0-8.0); NEUTROPHILS # 3.5 10^3/uL (1.5-8.5); NEUTROPHILS % 57.3 % (36.0-66.0); PLATELET COUNT, AUTOMATED 205 10^3/uL (150-450); RED BLOOD COUNT 4.95 10^6/uL (4.00-5.40); WHITE BLOOD COUNT 6.2 10^3/uL (4.0-10.0)
[2021-04-19 10:42] LABS: ALBUMIN 3.5 GM/DL (3.2-5.2); ALT/SGPT 20 U/L (12-78); BILIRUBIN,TOTAL 0.2 MG/DL (0.2-1.0); BLOOD UREA NITROGEN 11 MG/DL (7-18); CALCIUM LEVEL 8.6 MG/DL (8.5-10.1); CARBON DIOXIDE LEVEL 31 MEQ/L (21-32); CHLORIDE LEVEL 105 MEQ/L (98-107); CREATININE FOR GFR 0.63 MG/DL (0.55-1.30); GLOMERULAR FILTRATION RATE > 60.0 (>51); GLUCOSE, FASTING 92 MG/DL (70-100); LIPASE 132 U/L (73-393); SODIUM LEVEL 142 MEQ/L (136-145); TOTAL PROTEIN 6.8 GM/DL (6.4-8.2)
== END ==
LOC: M PLAIMG 08:12
PROVIDERS: ATTEND Nurse Practitioner Family
DX: R14.0 Abdominal distension (gaseous) (principal)

== ENCOUNTER → 2021-06-17 | Outpatient (CLI) | payer MEDICARE, MEDICAID ==
[2021-06-17 12:32] LABS: BASO # 0.1 10^3/uL (0.0-0.2); BASO % 1.1 % (0.0-1.0); EOS # 0.1 10^3/uL (0.0-0.5); EOS % 2.7 % (0.0-3.0); HEMATOCRIT 50.6 % (36.0-47.0); HEMOGLOBIN 16.4 g/dl (12.0-15.5); LYMPH # 1.5 10^3/uL (1.5-5.0); LYMPH % 28.4 % (24.0-44.0); MEAN CORPUSCULAR HEMOGLOBIN 32.8 pg (27.0-33.0); MEAN CORPUSCULAR HGB CONC 32.4 g/dl (32.0-36.5); MEAN CORPUSCULAR VOLUME 101.2 fl (80.0-96.0); MONO # 0.5 10^3/uL (0.0-0.8); NEUTROPHILS # 3.1 10^3/uL (1.5-8.5); NEUTROPHILS % 58.4 % (36.0-66.0); PLATELET COUNT, AUTOMATED 228 10^3/uL (150-450); WHITE BLOOD COUNT 5.2 10^3/uL (4.0-10.0)
[2021-06-17 13:05] LABS: ALBUMIN 3.4 GM/DL (3.2-5.2); ALT/SGPT 20 U/L (12-78); BILIRUBIN,TOTAL 0.2 MG/DL (0.2-1.0); BLOOD UREA NITROGEN 10 MG/DL (7-18); CARBON DIOXIDE LEVEL 29 MEQ/L (21-32); CHLORIDE LEVEL 107 MEQ/L (98-107); CHOLESTEROL LEVEL 186 MG/DL (<200); CHOLESTEROL RISK RATIO 3.509 (<5); CREATININE FOR GFR 0.64 MG/DL (0.55-1.30); FREE T4 0.92 NG/DL (0.76-1.46); GLOMERULAR FILTRATION RATE > 60.0 (>51); GLUCOSE, FASTING 80 MG/DL (70-100); HDL CHOLESTEROL 53 MG/DL (>40); LDL CHOLESTEROL 109 MG/DL (<100); NON-HDL-C 133 MG/DL; POTASSIUM SERUM 4.1 MEQ/L (3.5-5.1); SODIUM LEVEL 141 MEQ/L (136-145); TOTAL PROTEIN 6.9 GM/DL (6.4-8.2); TRIGLYCERIDES LEVEL 120 MG/DL (<150)
[2021-06-17 13:07] LABS: TOTAL 25(OH) VITAMIN D 26.7 NG/ML (30.0-100.0); VITAMIN B12 LEVEL 190 PG/ML (247-911)
[2021-06-17 14:28] LABS: HEMOGLOBIN A1c 5.5 %
== END ==
LOC: M PLALAB 09:18
PROVIDERS: ATTEND Nurse Practitioner Family
DX: E03.9 Hypothyroidism, unspecified (principal); D75.89 Other specified diseases of blood and blood-forming organs; E55.9 Vitamin D deficiency, unspecified; Z79.899 Other long term (current) drug therapy; G62.9 Polyneuropathy, unspecified
CPT/HCPCS: 36415; 80053; 80061; 82306; 82607; 83036; 84439; 84443; 85025; G0463

== ENCOUNTER → 2021-07-31 | Outpatient (CLI) | payer MEDICARE, OTHER ==
[~2021-07-31] MED LIST changes: +DOXY-443 PO; -DOXY1CAP62 PO
[2021-07-31 14:08] LABS: THYROID STIMULATING HORMONE 3.73 uIU/ML (0.358-3.740)
== END ==
LOC: M PLALAB 09:19
PROVIDERS: ATTEND Nurse Practitioner Family
DX: E03.9 Hypothyroidism, unspecified (principal); E53.8 Deficiency of other specified B group vitamins; Z23 Encounter for immunization
CPT/HCPCS: 36415; 82607; 84443; 90682; G0008

== ENCOUNTER → 2021-12-04 | Outpatient (CLI) | payer MEDICARE, OTHER ==
[2021-12-04 16:16] LABS: BASO # 0.1 10^3/uL (0.0-0.2); BASO % 1.3 % (0.0-1.0); EOS # 0.1 10^3/uL (0.0-0.5); EOS % 1.7 % (0.0-3.0); HEMATOCRIT 50.9 % (36.0-47.0); HEMOGLOBIN 16.5 g/dl (12.0-15.5); LYMPH % 37.1 % (24.0-44.0); MEAN CORPUSCULAR HEMOGLOBIN 32.5 pg (27.0-33.0); MEAN CORPUSCULAR HGB CONC 32.4 g/dl (32.0-36.5); MEAN CORPUSCULAR VOLUME 100.4 fl (80.0-96.0); MONO # 0.6 10^3/uL (0.0-0.8); MONO % 10.1 % (2.0-8.0); NEUTROPHILS # 2.7 10^3/uL (1.5-8.5); NEUTROPHILS % 49.6 % (36.0-66.0); PLATELET COUNT, AUTOMATED 186 10^3/uL (150-450); RED BLOOD COUNT 5.07 10^6/uL (4.00-5.40); WHITE BLOOD COUNT 5.4 10^3/uL (4.0-10.0)
[2021-12-04 17:59] LABS: ALBUMIN 3.8 GM/DL (3.2-5.2); ALT/SGPT 14 U/L (12-78); BILIRUBIN,TOTAL 0.3 MG/DL (0.2-1.0); BLOOD UREA NITROGEN 11 MG/DL (7-18); CALCIUM LEVEL 9.4 MG/DL (8.5-10.1); CARBON DIOXIDE LEVEL 31 MEQ/L (21-32); CHLORIDE LEVEL 107 MEQ/L (98-107); CHOLESTEROL LEVEL 186 MG/DL (<200); CHOLESTEROL RISK RATIO 3.263 (<5); CREATININE FOR GFR 0.71 MG/DL (0.55-1.30); FREE T4 1.14 NG/DL (0.76-1.46); GLOMERULAR FILTRATION RATE > 60.0 (>51); GLUCOSE, FASTING 94 MG/DL (70-100); HDL CHOLESTEROL 57 MG/DL (>40); LDL CHOLESTEROL 99 MG/DL (<100); NON-HDL-C 129 MG/DL; SODIUM LEVEL 141 MEQ/L (136-145); TRIGLYCERIDES LEVEL 151 MG/DL (<150)
[2021-12-04 18:00] LABS: TOTAL 25(OH) VITAMIN D 24.6 NG/ML (30.0-100.0); VITAMIN B12 LEVEL > 2000 PG/ML (247-911)
[2021-12-04 19:08] LABS: HEMOGLOBIN A1c 5.6 %
== END ==
LOC: M WUC 14:20
PROVIDERS: ATTEND Nurse Practitioner Family
DX: D75.89 Other specified diseases of blood and blood-forming organs (principal); E78.5 Hyperlipidemia, unspecified; E55.9 Vitamin D deficiency, unspecified

== ENCOUNTER → 2022-03-26 | Outpatient (CLI) | payer MEDICARE | LOC: M RAD 14:33 | PROVIDERS: ATTEND Nurse Practitioner Family | DX: Z12.2 Encounter for screening for malignant neoplasm of respiratory organs (principal); Z87.891 Personal history of nicotine dependence ==

== ENCOUNTER → 2022-05-20 | Outpatient (CLI) | payer MEDICARE ==
[2022-05-20 17:11] LABS: BASO # 0.1 10^3/uL (0.0-0.2); BASO % 0.9 % (0.0-1.0); EOS # 0.1 10^3/uL (0.0-0.5); HEMATOCRIT 47.9 % (36.0-47.0); HEMOGLOBIN 15.7 g/dl (12.0-15.5); LYMPH # 2.1 10^3/uL (1.5-5.0); LYMPH % 31.8 % (24.0-44.0); MEAN CORPUSCULAR HEMOGLOBIN 33.1 pg (27.0-33.0); MEAN CORPUSCULAR HGB CONC 32.8 g/dl (32.0-36.5); MEAN CORPUSCULAR VOLUME 101.1 fl (80.0-96.0); MONO # 0.6 10^3/uL (0.0-0.8); MONO % 9.3 % (2.0-8.0); NEUTROPHILS # 3.6 10^3/uL (1.5-8.5); NEUTROPHILS % 55.7 % (36.0-66.0); PLATELET COUNT, AUTOMATED 225 10^3/uL (150-450); RED BLOOD COUNT 4.74 10^6/uL (4.00-5.40); WHITE BLOOD COUNT 6.4 10^3/uL (4.0-10.0)
[2022-05-20 17:59] LABS: ALBUMIN 3.8 GM/DL (3.2-5.2); ALT/SGPT 26 U/L (12-78); BILIRUBIN,TOTAL 0.4 MG/DL (0.2-1.0); BLOOD UREA NITROGEN 7 MG/DL (7-18); C REACTIVE PROTEIN QUANTITATIV 0.62 MG/DL (0.00-0.30); CALCIUM LEVEL 9.4 MG/DL (8.5-10.1); CARBON DIOXIDE LEVEL 30 MEQ/L (21-32); CHLORIDE LEVEL 108 MEQ/L (98-107); CHOLESTEROL LEVEL 195 MG/DL (<200); CHOLESTEROL RISK RATIO 3.679 (<5); CREATININE FOR GFR 0.66 MG/DL (0.55-1.30); FREE T4 1.04 NG/DL (0.76-1.46); GLOMERULAR FILTRATION RATE > 60.0 (>51); GLUCOSE, FASTING 86 MG/DL (70-100); HDL CHOLESTEROL 53 MG/DL (>40); LDL CHOLESTEROL 121 MG/DL (<100); NON-HDL-C 142 MG/DL; POTASSIUM SERUM 4.2 MEQ/L (3.5-5.1); SODIUM LEVEL 142 MEQ/L (136-145); TOTAL PROTEIN 7.3 GM/DL (6.4-8.2); TRIGLYCERIDES LEVEL 107 MG/DL (<150); VALPROIC ACID (DEPAKOTE) 34.9 UG/ML (50.0-100.0)
[2022-05-20 18:22] LABS: TOTAL 25(OH) VITAMIN D 39.2 NG/ML (30.0-100.0); VITAMIN B12 LEVEL > 2000 PG/ML (247-911)
== END ==
LOC: M PLAIMG 12:33
PROVIDERS: ATTEND Nurse Practitioner Family
DX: M79.89 Other specified soft tissue disorders (principal); E78.5 Hyperlipidemia, unspecified; R56.9 Unspecified convulsions; E53.8 Deficiency of other specified B group vitamins; E55.9 Vitamin D deficiency, unspecified; Z79.899 Other long term (current) drug therapy

== ENCOUNTER 2022-06-26 14:49 | Outpatient (RCR) | payer MEDICARE | END 2022-06-27 | LOC: M PT 14:49 | PROVIDERS: ATTEND Nurse Practitioner Family | DX: M79.89 Other specified soft tissue disorders (principal) ==

== ENCOUNTER 2022-07-22 15:45 | Outpatient (RCR) | payer MEDICARE | END 2022-07-28 23:59 | disposition home or self-care (01) | LOC: M PT 15:45 | PROVIDERS: ATTEND Nurse Practitioner Family | DX: I89.0 Lymphedema, not elsewhere classified (principal); M79.89 Other specified soft tissue disorders ==

== ENCOUNTER → 2022-08-27 | Outpatient (RCR) | payer MEDICAID, MEDICARE | LOC: M PT 07-30 15:45 | PROVIDERS: ATTEND Nurse Practitioner Family | DX: I89.0 Lymphedema, not elsewhere classified (principal) ==

== ENCOUNTER 2022-09-03 14:39 | Outpatient (RCR) | payer MEDICARE | END 2022-09-27 | LOC: M PT 14:39 | PROVIDERS: ATTEND Nurse Practitioner Family | DX: I89.0 Lymphedema, not elsewhere classified (principal) ==

== ENCOUNTER → 2022-10-02 | Outpatient (CLI) | payer MEDICARE | LOC: M WHC 13:37 | PROVIDERS: ATTEND Nurse Practitioner Family | DX: Z12.31 Encounter for screening mammogram for malignant neoplasm of breast (principal); N63.22 Unspecified lump in the left breast, upper inner quadrant ==

== ENCOUNTER → 2022-10-02 | Outpatient (CLI) | payer MEDICARE | LOC: M WHC 13:15 | PROVIDERS: ATTEND Nurse Practitioner Adult Health | DX: Z12.31 Encounter for screening mammogram for malignant neoplasm of breast (principal); C50.312 Malignant neoplasm of lower-inner quadrant of left female breast; M85.851 Other specified disorders of bone density and structure, right thigh ==

== ENCOUNTER → 2022-10-20 | Outpatient (CLI) | payer MEDICARE, MEDICAID | LOC: M WHC 15:08 | PROVIDERS: ATTEND Nurse Practitioner Family | DX: Z12.31 Encounter for screening mammogram for malignant neoplasm of breast (principal); R92.8 Other abnormal and inconclusive findings on diagnostic imaging of breast; N63.23 Unspecified lump in the left breast, lower outer quadrant | CPT/HCPCS: 76642; 77065; G0279 ==

== ENCOUNTER → 2022-10-28 | Outpatient (CLI) | payer MEDICARE, MEDICAID ==
[~2022-10-28] MED LIST changes: +**SFHN** LIDOCAINE 1% MDV 20ML VIAL ONE; +**SFHN** SODIUM BICARBONATE 8.4% 10MEQ 10ML VIAL ONE
[2022-10-28 08:44] VITALS: BP 140/72
== END ==
LOC: M WHCPRO 08:15
PROVIDERS: ATTEND Nurse Practitioner Family
DX: R92.8 Other abnormal and inconclusive findings on diagnostic imaging of breast (principal); N63.20 Unspecified lump in the left breast, unspecified quadrant

== ENCOUNTER → 2023-02-12 | Outpatient (CLI) | payer MEDICARE, MEDICAID, OTHER ==
[~2023-02-12] MED LIST changes: -**SFHN** LIDOCAINE 1% MDV 20ML VIAL ONE; -**SFHN** SODIUM BICARBONATE 8.4% 10MEQ 10ML VIAL ONE
== END ==
LOC: M SLEEP 20:00
PROVIDERS: ATTEND Nurse Practitioner Family
DX: G47.33 Obstructive sleep apnea (adult) (pediatric) (principal)

== ENCOUNTER 2023-03-04 15:00 | Outpatient (RCR) | payer MEDICARE | END 2023-03-27 | LOC: M PT 15:00 | PROVIDERS: ATTEND Nurse Practitioner Family | DX: I89.0 Lymphedema, not elsewhere classified (principal) ==

== ENCOUNTER → 2023-03-18 | Outpatient (REF) | payer MEDICARE ==
[2023-03-18 18:44] LABS: BASO # 0.1 10^3/uL (0.0-0.2); BASO % 0.9 % (0.0-1.0); EOS # 0.1 10^3/uL (0.0-0.5); EOS % 2.1 % (0.0-3.0); HEMATOCRIT 50.1 % (36.0-47.0); HEMOGLOBIN 15.7 g/dl (12.0-15.5); LYMPH # 1.9 10^3/uL (1.5-5.0); LYMPH % 31.8 % (24.0-44.0); MEAN CORPUSCULAR HEMOGLOBIN 32.3 pg (27.0-33.0); MEAN CORPUSCULAR HGB CONC 31.3 g/dl (32.0-36.5); MEAN CORPUSCULAR VOLUME 103.1 fl (80.0-96.0); MONO # 0.5 10^3/uL (0.0-0.8); MONO % 8.8 % (2.0-8.0); NEUTROPHILS # 3.3 10^3/uL (1.5-8.5); NEUTROPHILS % 56.2 % (36.0-66.0); PLATELET COUNT, AUTOMATED 216 10^3/uL (150-450); RED BLOOD COUNT 4.86 10^6/uL (4.00-5.40); WHITE BLOOD COUNT 5.8 10^3/uL (4.0-10.0)
[2023-03-18 19:02] LABS: HEMOGLOBIN A1c 5.5 % (4.0-6.0)
[2023-03-18 19:06] LABS: VALPROIC ACID (DEPAKOTE) 31.6 UG/ML (50.0-100.0)
[2023-03-18 19:08] LABS: ALBUMIN 3.8 G/DL (3.2-5.2); ALKALINE PHOSPHATASE 130 U/L (46-116); ALT/SGPT 21 U/L (7.0-40); AST/SGOT 10 U/L (<34); BILIRUBIN,TOTAL 0.3 MG/DL (0.3-1.2); BLOOD UREA NITROGEN 13 MG/DL (9-23); CALCIUM LEVEL 9.9 MG/DL (8.3-10.6); CARBON DIOXIDE LEVEL 31 MMOL/L (20-31); CHLORIDE LEVEL 105 MMOL/L (98-107); CHOLESTEROL LEVEL 153 MG/DL (<200); CHOLESTEROL RISK RATIO 2.73 (<5); CREATININE FOR GFR 0.83 MG/DL (0.55-1.30); GLOMERULAR FILTRATION RATE > 60.0 (>45); GLUCOSE, FASTING 90 MG/DL (74-106); LDL CHOLESTEROL 51.6 MG/DL (<100); POTASSIUM SERUM 4.3 MMOL/L (3.5-5.1); SODIUM LEVEL 143 MMOL/L (136-145); TOTAL PROTEIN 6.8 G/DL (5.7-8.2); TRIGLYCERIDES LEVEL 227 MG/DL (<150)
[2023-03-18 19:09] LABS: VITAMIN B12 LEVEL 1357 PG/ML (211-911)
[2023-03-18 19:10] LABS: FREE T4 1.41 NG/DL (0.89-1.76); THYROID STIMULATING HORMONE 0.543 uIU/ML (0.55-4.78); TOTAL 25(OH) VITAMIN D 44.8 NG/ML (20.0-100.0)
== END ==
LOC: M SFHCPLAZ 17:38
PROVIDERS: ATTEND Nurse Practitioner Family
DX: E78.5 Hyperlipidemia, unspecified (principal); R56.9 Unspecified convulsions; G62.9 Polyneuropathy, unspecified; E03.9 Hypothyroidism, unspecified; E55.9 Vitamin D deficiency, unspecified; D75.89 Other specified diseases of blood and blood-forming organs; Z79.899 Other long term (current) drug therapy

== ENCOUNTER 2023-04-08 13:35 | Outpatient (RCR) | payer MEDICARE | END 2023-04-27 | LOC: M PT 13:35 | PROVIDERS: ATTEND Nurse Practitioner Family | DX: I89.0 Lymphedema, not elsewhere classified (principal) ==

== ENCOUNTER → 2023-04-23 | Outpatient (CLI) | payer MEDICARE, MEDICAID | LOC: M RAD 09:35 | PROVIDERS: ATTEND Nurse Practitioner Family | DX: Z87.891 Personal history of nicotine dependence (principal) ==

== ENCOUNTER → 2023-04-30 | Outpatient (CLI) | payer MEDICARE, MEDICAID | LOC: M WHC 10:35 | PROVIDERS: ATTEND Nurse Practitioner Family | DX: N63.20 Unspecified lump in the left breast, unspecified quadrant (principal) | CPT/HCPCS: 77065; G0279 ==

== ENCOUNTER 2023-07-23 14:25 | Emergency (ER) | payer MEDICARE, MEDICAID ==
[~2023-07-23] VITALS: Ht 170.2 cm; Wt 103.6 kg
[2023-07-23] MEDS ORDERED: BISACODYL 10MG SUPP PR ONE (17:40)
[2023-07-23] MEDS ORDERED: DULC10SU2 PR (19:15)
[2023-07-23] MEDS ORDERED: MIRA3350 PO (19:15)
[2023-07-23 19:21] VITALS: BP 119/87; TEMP 96.7; O2SAT 93
== END 2023-07-23 19:48 | disposition home or self-care (01) ==
LOC: M ED 14:25
DX: K59.00 Constipation, unspecified (principal); Z88.5 Allergy status to narcotic agent; Z91.040 Latex allergy status; Z91.041 Radiographic dye allergy status; Z79.52 Long term (current) use of systemic steroids; Z79.891 Long term (current) use of opiate analgesic; Z79.899 Other long term (current) drug therapy

== ENCOUNTER → 2023-09-09 | Outpatient (CLI) | payer MEDICARE, MEDICAID ==
[~2023-09-09] MED LIST changes: +DULC10SU2 PR; +MIRA3350 PO
[2023-09-09 14:33] LABS: BASO # 0.1 10^3/uL (0.0-0.2); EOS # 0.1 10^3/uL (0.0-0.5); EOS % 2.4 % (0.0-3.0); HEMATOCRIT 48.8 % (36.0-47.0); HEMOGLOBIN 15.6 g/dl (12.0-15.5); LYMPH # 1.8 10^3/uL (1.5-5.0); LYMPH % 30.5 % (24.0-44.0); MEAN CORPUSCULAR HEMOGLOBIN 32.7 pg (27.0-33.0); MEAN CORPUSCULAR VOLUME 102.3 fl (80.0-96.0); MONO # 0.4 10^3/uL (0.0-0.8); MONO % 7.5 % (2.0-8.0); NEUTROPHILS # 3.4 10^3/uL (1.5-8.5); NEUTROPHILS % 58.3 % (36.0-66.0); PLATELET COUNT, AUTOMATED 185 10^3/uL (150-450); RED BLOOD COUNT 4.77 10^6/uL (4.00-5.40); WHITE BLOOD COUNT 5.8 10^3/uL (4.0-10.0)
[2023-09-09 15:15] LABS: VALPROIC ACID (DEPAKOTE) 53.5 UG/ML (50.0-100.0)
[2023-09-09 15:21] LABS: CHOLESTEROL RISK RATIO 2.73 (<5); FREE T4 1.29 NG/DL (0.89-1.76); LDL CHOLESTEROL 83.4 MG/DL (<100); THYROID STIMULATING HORMONE 2.356 uIU/ML (0.55-4.78); TOTAL 25(OH) VITAMIN D 47.9 NG/ML (20.0-100.0)
== END ==
LOC: M PLALAB 11:00
PROVIDERS: ATTEND Nurse Practitioner Family
DX: R56.9 Unspecified convulsions (principal); E78.5 Hyperlipidemia, unspecified; G62.9 Polyneuropathy, unspecified; E03.9 Hypothyroidism, unspecified; D75.89 Other specified diseases of blood and blood-forming organs; E55.9 Vitamin D deficiency, unspecified

== ENCOUNTER → 2023-10-05 | Outpatient (CLI) | payer MEDICARE, MEDICAID | LOC: M WHC 14:38 | PROVIDERS: ATTEND Nurse Practitioner Family | DX: Z13.820 Encounter for screening for osteoporosis (principal); Z12.31 Encounter for screening mammogram for malignant neoplasm of breast; M85.851 Other specified disorders of bone density and structure, right thigh; M85.852 Other specified disorders of bone density and structure, left thigh ==

== ENCOUNTER 2023-10-21 15:21 | Outpatient (RCR) | payer MEDICARE, MEDICAID | END 2023-10-28 | LOC: M PT 15:21 | PROVIDERS: ATTEND Nurse Practitioner Family | DX: I89.0 Lymphedema, not elsewhere classified (principal) ==

== ENCOUNTER → 2023-12-18 | Outpatient (CLI) | payer MEDICARE, MEDICAID | LOC: M PLAIMG 14:32 | PROVIDERS: ATTEND Nurse Practitioner Family | DX: J44.9 Chronic obstructive pulmonary disease, unspecified (principal); Z86.73 Personal history of transient ischemic attack (TIA), and cerebral infarction without residual deficits ==

== ENCOUNTER → 2024-03-11 | Outpatient (CLI) | payer MEDICARE, MEDICAID ==
[~2024-03-11] MED LIST changes: +ASPI-255 PO; +BUDE10.7 IH; +CYAN500T14 PO; +DOXY-323 PO; -DOXY-443 PO; +DULO60CA35 PO; +EXEM25TA PO; +FOLI1TAB11 PO; +LIDO76.52 TOP; +LINZ145C PO; +ONDA-282 PO; -ONDA4TAB6 PO; +RA M10TA PO; +RIME75TA PO; +SYNT175T2 PO; +THERTAB52 PO; +VITA-243 PO; +[UNRECOGNIZED DRUG - OTHER] PO
[2024-03-11 18:23] LABS: BASO # 0.1 10^3/uL (0.0-0.2); EOS # 0.2 10^3/uL (0.0-0.5); EOS % 2.4 % (0.0-3.0); HEMATOCRIT 46.6 % (36.0-47.0); HEMOGLOBIN 14.9 g/dl (12.0-15.5); LYMPH # 1.8 10^3/uL (1.5-5.0); LYMPH % 29.6 % (24.0-44.0); MEAN CORPUSCULAR HEMOGLOBIN 32.2 pg (27.0-33.0); MEAN CORPUSCULAR VOLUME 100.6 fl (80.0-96.0); MONO # 0.5 10^3/uL (0.0-0.8); MONO % 7.8 % (2.0-8.0); NEUTROPHILS # 3.6 10^3/uL (1.5-8.5); NEUTROPHILS % 58.9 % (36.0-66.0); PLATELET COUNT, AUTOMATED 221 10^3/uL (150-450); RED BLOOD COUNT 4.63 10^6/uL (4.00-5.40); WHITE BLOOD COUNT 6.1 10^3/uL (4.0-10.0)
[2024-03-11 18:37] LABS: VALPROIC ACID (DEPAKOTE) 31.7 UG/ML (50.0-100.0)
[2024-03-11 18:40] LABS: ALBUMIN 3.5 G/DL (3.2-5.2); ALKALINE PHOSPHATASE 127 U/L (46-116); ALT/SGPT 19 U/L (7.0-40); AST/SGOT 12 U/L (<34); BILIRUBIN,TOTAL 0.3 MG/DL (0.3-1.2); BLOOD UREA NITROGEN 12 MG/DL (9-23); CALCIUM LEVEL 9.8 MG/DL (8.3-10.6); CARBON DIOXIDE LEVEL 33 MMOL/L (20-31); CHLORIDE LEVEL 106 MMOL/L (98-107); CHOLESTEROL LEVEL 147 MG/DL (<200); CHOLESTEROL RISK RATIO 2.83 (<5); CREATININE FOR GFR 0.82 MG/DL (0.55-1.30); GLOMERULAR FILTRATION RATE > 60.0 (>45); GLUCOSE, FASTING 90 MG/DL (74-106); HDL CHOLESTEROL 51.9 MG/DL (>40); LDL CHOLESTEROL 68.5 MG/DL (<100); NON-HDL-C 95.1 MG/DL; POTASSIUM SERUM 4.4 MMOL/L (3.5-5.1); SODIUM LEVEL 142 MMOL/L (136-145); TOTAL PROTEIN 6.6 G/DL (5.7-8.2); TRIGLYCERIDES LEVEL 133 MG/DL (<150)
[2024-03-11 18:43] LABS: FREE T4 1.34 NG/DL (0.89-1.76); TOTAL 25(OH) VITAMIN D 45.3 NG/ML (20.0-100.0)
[2024-03-11 18:44] LABS: THYROID STIMULATING HORMONE 0.543 uIU/ML (0.55-4.78)
== END ==
LOC: M PLALAB 16:27
PROVIDERS: ATTEND Nurse Practitioner Family
DX: E78.5 Hyperlipidemia, unspecified (principal); R56.9 Unspecified convulsions; E03.9 Hypothyroidism, unspecified; E55.9 Vitamin D deficiency, unspecified; D75.89 Other specified diseases of blood and blood-forming organs

== ENCOUNTER 2024-05-13 09:34 | Day surgery (SDC) | payer MEDICARE, MEDICAID ==
[~2024-05-13] VITALS: Ht 172.7 cm; Wt 100.7 kg
[~2024-05-13 09:34] MED LIST changes: +MAGN200T PO; +MOME0.1C3 EX; +PROL60SO SC; +SYNT150T PO
[2024-05-13] MEDS: NS 1,000 ML IV ONE (10:13)
[2024-05-13] MEDS ORDERED: LIDOCAINE 2% 100MG/5ML SDV (FOR ANES.) As Ordered ONE (11:40)
[2024-05-13] MEDS ORDERED: propofoL 200 MG/20 ML VIAL As Ordered ONE (11:40)
[2024-05-13 11:58] VITALS: TEMP 97.8
[2024-05-13 12:21] VITALS: BP 125/61; O2SAT 95
== END 2024-05-13 12:28 | disposition home or self-care (01) ==
LOC: M OPP 09:34
PROVIDERS: ATTEND Internal Medicine Gastroenterology
DX: Z12.11 Encounter for screening for malignant neoplasm of colon (principal); D12.2 Benign neoplasm of ascending colon; D12.0 Benign neoplasm of cecum; K59.00 Constipation, unspecified; I25.10 Atherosclerotic heart disease of native coronary artery without angina pectoris; G47.30 Sleep apnea, unspecified; Z86.73 Personal history of transient ischemic attack (TIA), and cerebral infarction without residual deficits; Z79.02 Long term (current) use of antithrombotics/antiplatelets; Z79.51 Long term (current) use of inhaled steroids; Z79.82 Long term (current) use of aspirin; Z79.890 Hormone replacement therapy; Z79.899 Other long term (current) drug therapy; Z79.891 Long term (current) use of opiate analgesic

== ENCOUNTER → 2024-05-24 | Outpatient (CLI) | payer MEDICARE, MEDICAID ==
[~2024-05-24] MED LIST changes: +GABA-1635 PO; -GABA800T4 PO
[2024-05-24 19:31] LABS: FREE T4 1.3 NG/DL (0.89-1.76); THYROID STIMULATING HORMONE 4.688 uIU/ML (0.55-4.78)
== END ==
LOC: M PLALAB 14:38
PROVIDERS: ATTEND Nurse Practitioner Family
DX: E03.9 Hypothyroidism, unspecified (principal)

== ENCOUNTER → 2024-06-27 | Outpatient (CLI) | payer MEDICARE, MEDICAID ==
[~2024-06-27] MED LIST changes: -DOXY-323 PO; +DOXY-441 PO
== END ==
LOC: M PLAIMG 16:14
PROVIDERS: ATTEND Nurse Practitioner Adult Health
DX: R06.02 Shortness of breath (principal)

== ENCOUNTER → 2024-07-18 | Outpatient (CLI) | payer MEDICAID, MEDICARE | LOC: M PLAIMG 13:39 | PROVIDERS: ATTEND Nurse Practitioner Family | DX: R29.6 Repeated falls (principal) ==

== ENCOUNTER → 2024-09-19 | Outpatient (REF) | payer MEDICARE, MEDICAID ==
[2024-09-20 10:30] LABS: BASO # 0.1 10^3/uL (0.0-0.2); BASO % 0.8 % (0.0-1.0); EOS # 0.1 10^3/uL (0.0-0.5); EOS % 2.2 % (0.0-3.0); HEMATOCRIT 48.6 % (36.0-47.0); HEMOGLOBIN 15.6 g/dl (12.0-15.5); LYMPH # 2.1 10^3/uL (1.5-5.0); LYMPH % 31.9 % (24.0-44.0); MEAN CORPUSCULAR HEMOGLOBIN 32.8 pg (27.0-33.0); MEAN CORPUSCULAR HGB CONC 32.1 g/dl (32.0-36.5); MEAN CORPUSCULAR VOLUME 102.1 fl (80.0-96.0); MONO # 0.5 10^3/uL (0.0-0.8); MONO % 7.7 % (2.0-8.0); NEUTROPHILS # 3.7 10^3/uL (1.5-8.5); NEUTROPHILS % 57.1 % (36.0-66.0); PLATELET COUNT, AUTOMATED 214 10^3/uL (150-450); RED BLOOD COUNT 4.76 10^6/uL (4.00-5.40); WHITE BLOOD COUNT 6.5 10^3/uL (4.0-10.0)
[2024-09-20 10:46] LABS: ALBUMIN 3.8 G/DL (3.2-5.2); ALKALINE PHOSPHATASE 129 U/L (35-104); ALT/SGPT 23 U/L (7.0-40); AST/SGOT 14 U/L (<34); BILIRUBIN,TOTAL 0.3 MG/DL (0.3-1.2); BLOOD UREA NITROGEN 13 MG/DL (9-23); CALCIUM LEVEL 9.8 MG/DL (8.3-10.6); CARBON DIOXIDE LEVEL 30 MMOL/L (20-31); CHLORIDE LEVEL 107 MMOL/L (98-107); CHOLESTEROL LEVEL 181 MG/DL (<200); CHOLESTEROL RISK RATIO 3.02 (<5); CREATININE FOR GFR 0.81 MG/DL (0.55-1.30); GLOMERULAR FILTRATION RATE > 60.0 (>45); GLUCOSE, FASTING 129 MG/DL (74-106); HDL CHOLESTEROL 59.9 MG/DL (>40); LDL CHOLESTEROL 74.9 MG/DL (<100); NON-HDL-C 121.1 MG/DL; POTASSIUM SERUM 4.7 MMOL/L (3.5-5.1); SODIUM LEVEL 147 MMOL/L (136-145); TOTAL PROTEIN 6.9 G/DL (5.7-8.2); TRIGLYCERIDES LEVEL 231 MG/DL (<150)
[2024-09-20 10:47] LABS: THYROID STIMULATING HORMONE 3.227 uIU/ML (0.55-4.78); TOTAL 25(OH) VITAMIN D 52.6 NG/ML (20.0-100.0)
[2024-09-20 10:48] LABS: FREE T4 1.26 NG/DL (0.89-1.76)
[2024-09-20 11:26] LABS: VITAMIN B12 LEVEL 1620 PG/ML (211-911)
== END ==
LOC: M PLALAB 09:48
PROVIDERS: ATTEND Nurse Practitioner Family
DX: E78.5 Hyperlipidemia, unspecified (principal); E03.9 Hypothyroidism, unspecified; Z79.899 Other long term (current) drug therapy

== ENCOUNTER → 2024-10-07 | Outpatient (CLI) | payer MEDICARE, MEDICAID | LOC: M WHC 11:00 | PROVIDERS: ATTEND Internal Medicine | DX: Z12.31 Encounter for screening mammogram for malignant neoplasm of breast (principal); D75.1 Secondary polycythemia; D53.9 Nutritional anemia, unspecified; Z85.3 Personal history of malignant neoplasm of breast; Z92.3 Personal history of irradiation; Z92.21 Personal history of antineoplastic chemotherapy ==

== ENCOUNTER → 2024-10-27 | Outpatient (CLI) | payer MEDICARE, MEDICAID ==
[~2024-10-27] MED LIST changes: +PROHANCE 279.3MG/ML 15ML VIAL ONE; +PROHANCE 279.3MG/ML 5ML VIAL ONE
== END ==
LOC: M PLAIMG 12:24
PROVIDERS: ATTEND Psychiatry & Neurology Neurology
DX: G95.9 Disease of spinal cord, unspecified (principal); R26.81 Unsteadiness on feet
CPT/HCPCS: 72156; 72157; A9576

== ENCOUNTER → 2024-11-01 | Outpatient (CLI) | payer MEDICARE, MEDICAID ==
[~2024-11-01] MED LIST changes: -PROHANCE 279.3MG/ML 15ML VIAL ONE; -PROHANCE 279.3MG/ML 5ML VIAL ONE
== END ==
LOC: M RAD 11:00
PROVIDERS: ATTEND Nurse Practitioner Family
DX: M79.89 Other specified soft tissue disorders (principal)

== ENCOUNTER → 2024-11-10 | Outpatient (REF) | payer MEDICARE, MEDICAID | LOC: M SFHCPLAZ 14:40 | PROVIDERS: ATTEND Physician Assistant Medical | DX: R06.00 Dyspnea, unspecified (principal) ==

== ENCOUNTER → 2024-11-10 | Outpatient (CLI) | payer MEDICARE, MEDICAID ==
[2024-11-10 13:14] LABS: HEMATOCRIT 50.2 % (36.0-47.0); HEMOGLOBIN 16.2 g/dl (12.0-15.5); MEAN CORPUSCULAR HEMOGLOBIN 32.3 pg (27.0-33.0); MEAN CORPUSCULAR HGB CONC 32.3 g/dl (32.0-36.5); PLATELET COUNT, AUTOMATED 225 10^3/uL (150-450); RED BLOOD COUNT 5.02 10^6/uL (4.00-5.40); WHITE BLOOD COUNT 5.9 10^3/uL (4.0-10.0)
== END ==
LOC: M RAD 12:40
PROVIDERS: ATTEND Physician Assistant Medical
DX: J43.9 Emphysema, unspecified (principal); R06.00 Dyspnea, unspecified; Z99.81 Dependence on supplemental oxygen

== ENCOUNTER 2024-12-08 13:00 | Observation (INO) | payer MEDICARE, MEDICAID ==
[~2024-12-08] VITALS: Ht 170.2 cm; Wt 106.2 kg
[~2024-12-08 13:00] MED LIST changes: +DENO60SY2 SC; -PROL60SO SC
[2024-12-08] MEDS: methylPREDNISolone 125MG 2ML VIAL IV ONE (13:18)
[2024-12-08] MEDS: diphenhydrAMINE 50MG/ML VIAL IV ONE (13:18)
[2024-12-08 13:30] VITALS: BP 137/67; TEMP 98.1; O2SAT 94
[2024-12-08 13:35] LABS: BASO # 0.1 10^3/uL (0.0-0.2); BASO % 0.9 % (0.0-1.0); EOS # 0.1 10^3/uL (0.0-0.5); EOS % 2.2 % (0.0-3.0); HEMATOCRIT 49.3 % (36.0-47.0); HEMOGLOBIN 16.1 g/dl (12.0-15.5); LYMPH # 1.7 10^3/uL (1.5-5.0); LYMPH % 31.2 % (24.0-44.0); MEAN CORPUSCULAR HEMOGLOBIN 32.5 pg (27.0-33.0); MEAN CORPUSCULAR HGB CONC 32.7 g/dl (32.0-36.5); MEAN CORPUSCULAR VOLUME 99.4 fl (80.0-96.0); MONO # 0.5 10^3/uL (0.0-0.8); MONO % 8.7 % (2.0-8.0); NEUTROPHILS # 3.1 10^3/uL (1.5-8.5); NEUTROPHILS % 56.8 % (36.0-66.0); PLATELET COUNT, AUTOMATED 222 10^3/uL (150-450); RED BLOOD COUNT 4.96 10^6/uL (4.00-5.40); WHITE BLOOD COUNT 5.5 10^3/uL (4.0-10.0)
[2024-12-08] MEDS ORDERED: ISOVUE-370 76% 100ML VIAL As Ordered ONE (13:39)
[2024-12-08 13:48] LABS: INR 0.86; PARTIAL THROMBOPLASTIN TIME 29.3 SECONDS (24.8-34.2); PROTHROMBIN TIME 12.1 SECONDS (12.5-14.5)
[2024-12-08 14:05] VITALS: BP 128/60; TEMP 97.9; O2SAT 94
[2024-12-08] MEDS: ACETAMINOPHEN *IV* 1,000 MG in IV 1 EA IV ONE (15:36)
[2024-12-08] MEDS: CLOPIDOGREL 300 MG TAB (PLAVIX) PO STA (15:41)
[2024-12-08] MEDS: METOCLOPRAMIDE INJ 10MG/2ML VIAL IV ONE (15:57)
[2024-12-08 17:46] LABS: ALBUMIN 3.7 G/DL (3.2-5.2); ALKALINE PHOSPHATASE 112 U/L (35-104); ALT/SGPT 22 U/L (7.0-40); AST/SGOT 23 U/L (<34); BILIRUBIN,TOTAL 0.4 MG/DL (0.3-1.2); BLOOD UREA NITROGEN 12 MG/DL (9-23); CALCIUM LEVEL 8.8 MG/DL (8.3-10.6); CARBON DIOXIDE LEVEL 27 MMOL/L (20-31); CHLORIDE LEVEL 104 MMOL/L (98-107); CREATININE FOR GFR 0.69 MG/DL (0.55-1.30); GLOMERULAR FILTRATION RATE > 60.0 (>45); GLUCOSE, FASTING 138 MG/DL (74-106); POTASSIUM SERUM 4.4 MMOL/L (3.5-5.1); SODIUM LEVEL 139 MMOL/L (136-145)
[2024-12-08] MEDS: DIVALPROEX 500MG *ER* TAB PO ONE (18:35)
[2024-12-08] MEDS ORDERED: [UNRECOGNIZED DRUG - CODE] PO (18:40)
[2024-12-08] MEDS ORDERED: FURO20TA2 PO (18:40)
[2024-12-08] MEDS ORDERED: DIVA500T94 PO (18:40)
[2024-12-08] MEDS ORDERED: ATOR80TA59 PO (18:40)
[2024-12-08] MEDS ORDERED: HOME MED LIST COMPLETE! XX SCH (18:40)
[2024-12-08] MEDS ORDERED: B-2100TA PO (18:40)
[2024-12-08] MEDS: KETOROLAC 30 MG/ML 1ML VIAL IV ONE (20:21)
[2024-12-08 20:30] VITALS: BP 121/73; TEMP 96.6; O2SAT 94
[2024-12-08] MEDS: FIORICET TAB PO ONE (22:18)
[2024-12-09] VITALS (14 sets, daily range): BP systolic 103–141; BP diastolic 63–86; TEMP 97.3–98.6; O2SAT 90–96
[2024-12-09] MEDS: ACETAMINOPHEN 325 MG TAB PO PRN (01:48)
[2024-12-09] MEDS: KETOROLAC 30 MG/ML 1ML VIAL IV ONE (01:48)
[2024-12-09] MEDS: NS 500 ML IV ONE (04:15)
[2024-12-09] MEDS: LEVOTHYROXINE 150MCG TABLET (0.15MG) PO SCH (05:34)
[2024-12-09 06:05] LABS: HEMATOCRIT 45.8 % (36.0-47.0); MEAN CORPUSCULAR HEMOGLOBIN 32.4 pg (27.0-33.0); MEAN CORPUSCULAR HGB CONC 32.8 g/dl (32.0-36.5); MEAN CORPUSCULAR VOLUME 98.9 fl (80.0-96.0); PLATELET COUNT, AUTOMATED 226 10^3/uL (150-450); RED BLOOD COUNT 4.63 10^6/uL (4.00-5.40); WHITE BLOOD COUNT 9.2 10^3/uL (4.0-10.0)
[2024-12-09 06:32] LABS: ALBUMIN 3.2 G/DL (3.2-5.2); ALKALINE PHOSPHATASE 102 U/L (35-104); ALT/SGPT 17 U/L (7.0-40); AST/SGOT 12 U/L (<34); BILIRUBIN,TOTAL 0.3 MG/DL (0.3-1.2); BLOOD UREA NITROGEN 21 MG/DL (9-23); CALCIUM LEVEL 8.8 MG/DL (8.3-10.6); CARBON DIOXIDE LEVEL 28 MMOL/L (20-31); CHLORIDE LEVEL 105 MMOL/L (98-107); CHOLESTEROL LEVEL 138 MG/DL (<200); CREATININE FOR GFR 0.69 MG/DL (0.55-1.30); GLOMERULAR FILTRATION RATE > 60.0 (>45); GLUCOSE, FASTING 113 MG/DL (74-106); HDL CHOLESTEROL 57.4 MG/DL (>40); LDL CHOLESTEROL 68.2 MG/DL (<100); NON-HDL-C 80.6 MG/DL; POTASSIUM SERUM 4.3 MMOL/L (3.5-5.1); SODIUM LEVEL 142 MMOL/L (136-145); TOTAL PROTEIN 6.3 G/DL (5.7-8.2); TRIGLYCERIDES LEVEL 62 MG/DL (<150)
[2024-12-09] MEDS: METOCLOPRAMIDE INJ 10MG/2ML VIAL IV ONE (08:25)
[2024-12-09] MEDS: NYSTATIN 100,000 UNITS/GM TOPICAL PWD 15GM TOP SCH (09:00)
[2024-12-09] MEDS ORDERED: CLOPIDOGREL 75 MG TAB PO SCH (09:00)
[2024-12-09] MEDS: GABAPENTIN 400MG CAP PO SCH (10:10)
[2024-12-09] MEDS: ASPIRIN 81MG CHEW TABLET PO SCH (10:10)
[2024-12-09] MEDS: FOLIC ACID 1MG TAB PO SCH (10:11)
[2024-12-09] MEDS: FUROSEMIDE 20 MG TAB PO SCH (10:11)
[2024-12-09] MEDS: CYANOCOBALAMIN 500 MCG TAB PO SCH (10:11)
[2024-12-09] MEDS: EXCEDRIN MIGRAINE TABLET PO PRN (10:19)
[2024-12-09] MEDS: methylPREDNISolone 500 MG, VIAL MATE ADAPTER 1 EACH in NS 100 ML IV STA (12:58)
[2024-12-09 13:48] LABS: ERYTHROCYTE SEDIMENTATION RATE 13 mm/hr (0-30)
[2024-12-09] MEDS: HYDROmorphone 2 MG TAB PO PRN (14:03)
[2024-12-09] MEDS: ATORVASTATIN 20 MG TAB PO SCH (21:15)
[2024-12-09] MEDS: DIVALPROEX 500 MG TAB PO SCH (21:15)
[2024-12-09] MEDS: KETOROLAC TROMETHAMINE 10 MG TAB PO ONE (23:08)
[2024-12-10] VITALS (11 sets, daily range): BP systolic 123–142; BP diastolic 75–84; TEMP 97–97.9; O2SAT 83–95
[2024-12-10] MEDS: diphenhydrAMINE CREAM 30GM TOP PRN (02:41)
[2024-12-10 08:32] LABS: HEMATOCRIT 44.3 % (36.0-47.0); HEMOGLOBIN 14.5 g/dl (12.0-15.5); MEAN CORPUSCULAR HEMOGLOBIN 32.6 pg (27.0-33.0); MEAN CORPUSCULAR HGB CONC 32.7 g/dl (32.0-36.5); MEAN CORPUSCULAR VOLUME 99.6 fl (80.0-96.0); PLATELET COUNT, AUTOMATED 231 10^3/uL (150-450); RED BLOOD COUNT 4.45 10^6/uL (4.00-5.40); WHITE BLOOD COUNT 11.6 10^3/uL (4.0-10.0)
[2024-12-10 08:53] LABS: ALBUMIN 3.2 G/DL (3.2-5.2); ALKALINE PHOSPHATASE 93 U/L (35-104); ALT/SGPT 21 U/L (7.0-40); AST/SGOT 11 U/L (<34); BILIRUBIN,TOTAL 0.3 MG/DL (0.3-1.2); BLOOD UREA NITROGEN 22 MG/DL (9-23); CALCIUM LEVEL 8.4 MG/DL (8.3-10.6); CARBON DIOXIDE LEVEL 28 MMOL/L (20-31); CHLORIDE LEVEL 106 MMOL/L (98-107); CREATININE FOR GFR 0.68 MG/DL (0.55-1.30); GLOMERULAR FILTRATION RATE > 60.0 (>45); GLUCOSE, FASTING 109 MG/DL (74-106); POTASSIUM SERUM 4.4 MMOL/L (3.5-5.1); SODIUM LEVEL 141 MMOL/L (136-145); TOTAL PROTEIN 6.2 G/DL (5.7-8.2)
[2024-12-10 08:55] LABS: FREE THYROXINE INDEX 2.5 % (1.3-4.8); T UPTAKE 34.4 % (22.5-37.0); THYROID STIMULATING HORMONE 0.329 uIU/ML (0.55-4.78); THYROXINE (T4) 7.3 UG/DL (4.5-10.9)
[2024-12-10] MEDS: BACLOFEN 10 MG TAB PO PRN (09:14)
[2024-12-10] MEDS: diphenhydrAMINE 50MG CAP PO ONE (16:22)
[2024-12-10] MEDS: KETOROLAC TROMETHAMINE 10 MG TAB PO ONE (16:27)
[2024-12-10] MEDS: diphenhydrAMINE 25MG CAP PO ONE (20:57)
[2024-12-11] VITALS: BP 127/79; TEMP 97.3; O2SAT 95
[2024-12-11 04:42] VITALS: BP 136/82; TEMP 97; O2SAT 95
[2024-12-11] MEDS: diphenhydrAMINE 50MG CAP PO PRN (18:43)
[2024-12-12 03:30] VITALS: BP 131/81; TEMP 97.3; O2SAT 96
[2024-12-12] MEDS ORDERED: LEVO137T2 PO (12:19)
[2024-12-12] MEDS ORDERED: NYST10006 TOP (12:19)
[2024-12-12] MEDS ORDERED: SYNT137T7 PO (15:09)
[2024-12-12 16:02] LABS: ANA SCREEN, IFA NEGATIVE (NEGATIVE)
== END 2024-12-12 14:09 | disposition home or self-care (01) ==
LOC: M ED 13:00 → EDBD 13:00 → M ED INP 13:01 → M MSPAV 19:59
PROVIDERS: ADMIT Student in an Organized Health Care Education/Training Program; ATTEND Student in an Organized Health Care Education/Training Program
DX: H05.221 Edema of right orbit (principal); I65.22 Occlusion and stenosis of left carotid artery; C50.919 Malignant neoplasm of unspecified site of unspecified female breast; E78.5 Hyperlipidemia, unspecified; E03.9 Hypothyroidism, unspecified; E04.0 Nontoxic diffuse goiter; I25.2 Old myocardial infarction; Z86.73 Personal history of transient ischemic attack (TIA), and cerebral infarction without residual deficits; G40.909 Epilepsy, unspecified, not intractable, without status epilepticus; Z79.82 Long term (current) use of aspirin; Z79.899 Other long term (current) drug therapy; Z91.041 Radiographic dye allergy status; Z91.040 Latex allergy status; Z88.5 Allergy status to narcotic agent; F17.218 Nicotine dependence, cigarettes, with other nicotine-induced disorders
CPT/HCPCS: 36415; 70450; 70496; 70498; 70551; 71045; 80047; 80053; 80061; 84436; 84443; 84479; 85025; 85027; 85610; 85652; 85730; 86038; 86140; 86850; 86900; 86901; 93005; 93041; 94760; 96365; 96375; 96376; 97116; 97161; 97165; 97530; 97535; 99285; G0378; J0131; J1200; J1885; J2765; J2919; Q9967

== ENCOUNTER → 2025-01-02 | Outpatient (CLI) | payer MEDICARE, MEDICAID ==
[~2025-01-02] MED LIST changes: +ATOR80TA59 PO; +B-2100TA PO; +DIVA500T94 PO; +FURO20TA2 PO; +NYST10006 TOP; +SYNT137T7 PO; +[UNRECOGNIZED DRUG - CODE] PO
[2025-01-02 18:07] LABS: HEMATOCRIT 47.3 % (36.0-47.0); HEMOGLOBIN 15.7 g/dl (12.0-15.5); MEAN CORPUSCULAR HEMOGLOBIN 33.3 pg (27.0-33.0); MEAN CORPUSCULAR HGB CONC 33.2 g/dl (32.0-36.5); MEAN CORPUSCULAR VOLUME 100.2 fl (80.0-96.0); PLATELET COUNT, AUTOMATED 219 10^3/uL (150-450); RED BLOOD COUNT 4.72 10^6/uL (4.00-5.40)
[2025-01-02 18:27] LABS: ALBUMIN 3.7 G/DL (3.2-5.2); ALKALINE PHOSPHATASE 112 U/L (35-104); ALT/SGPT 22 U/L (7.0-40); AST/SGOT 16 U/L (<34); BILIRUBIN,TOTAL 0.3 MG/DL (0.3-1.2); BLOOD UREA NITROGEN 13 MG/DL (9-23); CALCIUM LEVEL 9.2 MG/DL (8.3-10.6); CARBON DIOXIDE LEVEL 32 MMOL/L (20-31); CHLORIDE LEVEL 103 MMOL/L (98-107); CREATININE FOR GFR 0.88 MG/DL (0.55-1.30); GLOMERULAR FILTRATION RATE > 60.0 (>45); GLUCOSE, FASTING 101 MG/DL (74-106); POTASSIUM SERUM 4.4 MMOL/L (3.5-5.1); SODIUM LEVEL 143 MMOL/L (136-145); TOTAL PROTEIN 6.7 G/DL (5.7-8.2)
[2025-01-02 18:31] LABS: THYROID STIMULATING HORMONE 1.236 uIU/ML (0.55-4.78)
== END ==
LOC: M LAB 17:20
PROVIDERS: ATTEND Nurse Practitioner Family
DX: I50.32 Chronic diastolic (congestive) heart failure (principal); I25.10 Atherosclerotic heart disease of native coronary artery without angina pectoris; I27.81 Cor pulmonale (chronic); E03.9 Hypothyroidism, unspecified; I42.2 Other hypertrophic cardiomyopathy

== ENCOUNTER 2025-01-16 22:46 | Emergency (ER) | payer MEDICARE, MEDICAID ==
[~2025-01-16] VITALS: Ht 170.2 cm; Wt 106.8 kg
[2025-01-17] MEDS: ANEXSIA, NORCO 7.5MG/325MG TABLET(HYDROCODONE/APAP) PO ONE (00:41)
[2025-01-17] MEDS ORDERED: HYDR-3713 PO (01:08)
[2025-01-17] MEDS: NORCO 5/325MG TABLET (HOME DOSE PACK) PO ONE (01:10)
[2025-01-17 03:23] VITALS: BP 118/58; TEMP 98; O2SAT 98
== END 2025-01-17 03:46 | disposition home or self-care (01) ==
LOC: EDBD 22:46 → M ED 22:46
DX: S82.62XA Displaced fracture of lateral malleolus of left fibula, initial encounter for closed fracture (principal); Y92.9 Unspecified place or not applicable; Y93.9 Activity, unspecified; Y99.9 Unspecified external cause status; W19.XXXA Unspecified fall, initial encounter; I50.22 Chronic systolic (congestive) heart failure; K21.9 Gastro-esophageal reflux disease without esophagitis; J44.9 Chronic obstructive pulmonary disease, unspecified; E78.5 Hyperlipidemia, unspecified; F32.A Depression, unspecified; F17.210 Nicotine dependence, cigarettes, uncomplicated; Z88.5 Allergy status to narcotic agent; Z91.040 Latex allergy status; Z79.1 Long term (current) use of non-steroidal anti-inflammatories (NSAID); Z79.51 Long term (current) use of inhaled steroids; Z79.899 Other long term (current) drug therapy; Z79.810 Long term (current) use of selective estrogen receptor modulators (SERMs)

== ENCOUNTER → 2025-01-17 | Outpatient (CLI) | payer MEDICARE, MEDICAID ==
[~2025-01-17] MED LIST changes: +HYDR-3713 PO
== END ==
LOC: M SOG 14:34
PROVIDERS: ATTEND Orthopaedic Surgery
DX: S82.62XA Displaced fracture of lateral malleolus of left fibula, initial encounter for closed fracture (principal); W18.30XA Fall on same level, unspecified, initial encounter; Y92.009 Unspecified place in unspecified non-institutional (private) residence as the place of occurrence of the external cause

== ENCOUNTER → 2025-01-31 | Outpatient (CLI) | payer MEDICARE, MEDICAID | LOC: M SOG 07:56 | PROVIDERS: ATTEND Orthopaedic Surgery | DX: S82.62XA Displaced fracture of lateral malleolus of left fibula, initial encounter for closed fracture (principal); W18.30XA Fall on same level, unspecified, initial encounter; Y92.009 Unspecified place in unspecified non-institutional (private) residence as the place of occurrence of the external cause ==

== ENCOUNTER → 2025-02-06 | Outpatient (CLI) | payer MEDICARE, MEDICAID | LOC: M RAD 12:21 | PROVIDERS: ATTEND Nurse Practitioner Adult Health | DX: Z12.2 Encounter for screening for malignant neoplasm of respiratory organs (principal); Z87.891 Personal history of nicotine dependence; J43.2 Centrilobular emphysema; I25.10 Atherosclerotic heart disease of native coronary artery without angina pectoris; I70.0 Atherosclerosis of aorta; J98.11 Atelectasis; J98.4 Other disorders of lung ==

== ENCOUNTER → 2025-02-15 | Outpatient (CLI) | payer MEDICARE, MEDICAID | LOC: M SOG 07:49 | PROVIDERS: ATTEND Orthopaedic Surgery | DX: S82.62XD Displaced fracture of lateral malleolus of left fibula, subsequent encounter for closed fracture with routine healing (principal) ==

== ENCOUNTER → 2025-04-24 | Outpatient (CLI) | payer MEDICARE, MEDICAID ==
[~2025-04-24] MED LIST changes: +DIVA-41 PO; -DIVA500T94 PO; +SENN-225 PO; -SENO8.6T5 PO
[2025-04-24 10:53] LABS: CALCIUM LEVEL 9.2 MG/DL (8.3-10.6); CARBON DIOXIDE LEVEL 31.0 MMOL/L (20-31); CHLORIDE LEVEL 102.0 MMOL/L (98-107); CREATININE FOR GFR 0.8 MG/DL (0.55-1.30); GLOMERULAR FILTRATION RATE 83.3 (>45); MAGNESIUM LEVEL 2.0 MG/DL (1.8-2.4); POTASSIUM SERUM 3.8 MMOL/L (3.5-5.1); SODIUM LEVEL 145.0 MMOL/L (136-145)
[2025-04-24 10:55] LABS: FREE T4 1.35 NG/DL (0.89-1.76)
== END ==
LOC: M PLALAB 08:00
PROVIDERS: ATTEND Nurse Practitioner Family
DX: E03.9 Hypothyroidism, unspecified (principal); R06.02 Shortness of breath; M79.604 Pain in right leg

== ENCOUNTER 2025-05-19 13:12 | Inpatient (IN) | payer MEDICARE, MEDICAID ==
[~2025-05-19] VITALS: Ht 172.7 cm; Wt 104.1 kg
[2025-05-19] VITALS (18 sets, daily range): BP systolic 125–171; BP diastolic 63–97; TEMP 97.2–98.3; O2SAT 93–97
[2025-05-19] MEDS ORDERED: ISOVUE-370 76% 100 ML VIAL As Ordered ONE (13:24)
[2025-05-19] MEDS: diphenhydrAMINE 50 MG/ML VIAL IV ONE (13:43)
[2025-05-19 13:52] LABS: BASO # 0.1 10^3/uL (0.0-0.2); BASO % 1.0 % (0.0-1.0); EOS # 0.1 10^3/uL (0.0-0.5); EOS % 1.6 % (0.0-3.0); LYMPH # 1.6 10^3/uL (1.5-5.0); LYMPH % 26.9 % (24.0-44.0); MONO # 0.7 10^3/uL (0.0-0.8); MONO % 11.0 % (2.0-8.0); NEUTROPHILS # 3.6 10^3/uL (1.5-8.5); NEUTROPHILS % 59.0 % (36.0-66.0); PLATELET COUNT, AUTOMATED 216 10^3/uL (150-450)
[2025-05-19 14:07] LABS: INR 0.86
[2025-05-19] MEDS: TENECTEPLASE 50 MG/10 ML VIAL IVP ONE (14:15)
[2025-05-19] MEDS: SODIUM CHLORIDE 0.9% INJ 10 ML SYR IV ONE ×2 (14:15→14:17)
[2025-05-19] MEDS: ACETAMINOPHEN *IV* 1,000 MG in IV 1 EA IV ONE (14:58)
[2025-05-19 15:10] LABS: ALT/SGPT 20 U/L (7.0-40); AST/SGOT 18 U/L (<34); CALCIUM LEVEL 9.8 MG/DL (8.3-10.6); CARBON DIOXIDE LEVEL 33 MMOL/L (20-31); CHLORIDE LEVEL 106 MMOL/L (98-107); CREATININE FOR GFR 0.68 MG/DL (0.55-1.30); GLOMERULAR FILTRATION RATE > 90.0 (>45); POTASSIUM SERUM 3.5 MMOL/L (3.5-5.1); SODIUM LEVEL 148 MMOL/L (136-145)
[2025-05-19] MEDS ORDERED: SYNT137T7 PO (17:27)
[2025-05-19] MEDS ORDERED: MAGN400T2 PO (17:27)
[2025-05-19] MEDS ORDERED: MIRA3350 PO (17:27)
[2025-05-19] MEDS ORDERED: NYST1POW3 TOP (17:27)
[2025-05-19] MEDS ORDERED: MOME0.1C3 TOP (17:27)
[2025-05-19] MEDS ORDERED: BISA10SU27 PR (17:27)
[2025-05-19] MEDS ORDERED: FURO40TA2 PO (17:27)
[2025-05-19] MEDS ORDERED: HOME MED LIST COMPLETE! XX SCH (17:30)
[2025-05-19] MEDS ORDERED: MIRALAX *UNIT DOSE* 17 GM PACKET PO PRN (17:30)
[2025-05-19] MEDS ORDERED: ALBUTEROL 90 MCG/ACT 8 GM HFA INHALER INH PRN (17:30)
[2025-05-19] MEDS ORDERED: BISACODYL 10 MG SUPP PR PRN (17:30)
[2025-05-19] MEDS: D5W/LR 1,000 ML IV SCH (18:48)
[2025-05-19] MEDS: DIVALPROEX 500 MG TAB PO SCH (20:24)
[2025-05-19] MEDS: ACETAMINOPHEN 325 MG TAB PO PRN (20:24)
[2025-05-19] MEDS: CETIRIZINE 10 MG TAB PO SCH (20:24)
[2025-05-19] MEDS: GABAPENTIN 400 MG CAP PO SCH (20:24)
[2025-05-19] MEDS: ATORVASTATIN 20 MG TAB PO SCH (20:25)
[2025-05-20] VITALS (17 sets, daily range): BP systolic 111–162; BP diastolic 55–97; TEMP 97.2–99.4; O2SAT 92–97
[2025-05-20] MEDS: LEVOTHYROXINE 137 MCG TABLET (0.137 MG) PO SCH (05:20)
[2025-05-20] MEDS: MAGNESIUM OXIDE 400 MG TAB PO SCH (09:32)
[2025-05-20] MEDS: FOLIC ACID 1 MG TAB PO SCH (09:33)
[2025-05-20] MEDS: FUROSEMIDE 40 MG TAB PO SCH (09:34)
[2025-05-20] MEDS: ASCORBIC ACID 500 MG TAB PO SCH (09:34)
[2025-05-20 16:24] LABS: ESTIMATED AVERAGE GLUCOSE 117.0 MG/DL (60-110)
[2025-05-20 16:33] LABS: CHOLESTEROL LEVEL 146.0 MG/DL (<200); CHOLESTEROL RISK RATIO 3.45 (<5); LDL CHOLESTEROL 77.2 MG/DL (<100); MAGNESIUM LEVEL 2.0 MG/DL (1.8-2.4); NON-HDL-C 103.8 MG/DL; PHOSPHORUS LEVEL 4.6 MG/DL (2.4-5.1); TRIGLYCERIDES LEVEL 133.0 MG/DL (<150)
[2025-05-20] MEDS: CLOPIDOGREL 75 MG TAB PO SCH (18:11)
[2025-05-20] MEDS: ASPIRIN 81 MG ENTERIC TABLET PO SCH (18:11)
[2025-05-20] MEDS: EXCEDRIN MIGRAINE TABLET PO PRN (21:29)
[2025-05-21] VITALS: BP 113/56; TEMP 98.5; O2SAT 97
[2025-05-21 04:00] VITALS: BP 159/60; TEMP 98.1; O2SAT 97
[2025-05-21 08:00] VITALS: BP 146/82; TEMP 97.8; O2SAT 97
[2025-05-21] MEDS: ONDANSETRON 4MG 2ML VIAL IV PRN (09:44)
[2025-05-21] MEDS: CYANOCOBALAMIN 500 MCG TAB PO SCH (09:45)
[2025-05-21 12:00] VITALS: BP 147/91; TEMP 98.2; O2SAT 92
[2025-05-21 16:00] VITALS: BP 121/69; TEMP 98.4; O2SAT 92
[2025-05-21 20:26] VITALS: BP 113/66; TEMP 97.1; O2SAT 95
[2025-05-21] MEDS: ACETAMINOPHEN *IV* 1,000 MG in IV 1 EA IV ONE (21:41)
[2025-05-22] VITALS (8 sets, daily range): BP systolic 109–165; BP diastolic 56–78; TEMP 97.3–98.8; O2SAT 89–100
[2025-05-22] MEDS ORDERED: CLOP75TA2 PO (15:54)
[2025-05-22] MEDS ORDERED: ASPI81TAEC PO (15:54)
== END 2025-05-22 18:15 | DRG 65 ==
LOC: M ED 13:12 → EDSEX 13:12 → EDBD 13:12 → M ED INP 16:21 → M ICU 17:48 → M PCU 05-22 10:17
PROVIDERS: ADMIT Internal Medicine Pulmonary Disease; ATTEND General Practice
DX: I63.9 Cerebral infarction, unspecified (principal); I69.354 Hemiplegia and hemiparesis following cerebral infarction affecting left non-dominant side; E87.0 Hyperosmolality and hypernatremia; I10 Essential (primary) hypertension; J44.9 Chronic obstructive pulmonary disease, unspecified; E78.5 Hyperlipidemia, unspecified; F32.A Depression, unspecified; E03.9 Hypothyroidism, unspecified; E66.9 Obesity, unspecified; Z68.34 Body mass index [BMI] 34.0-34.9, adult; F17.200 Nicotine dependence, unspecified, uncomplicated; R51.9 Headache, unspecified; Z79.890 Hormone replacement therapy; M81.0 Age-related osteoporosis without current pathological fracture; S80.02XA Contusion of left knee, initial encounter; W18.30XA Fall on same level, unspecified, initial encounter; Y92.009 Unspecified place in unspecified non-institutional (private) residence as the place of occurrence of the external cause; Z66 Do not resuscitate; Z91.040 Latex allergy status; Z91.041 Radiographic dye allergy status; Z88.5 Allergy status to narcotic agent; Z79.899 Other long term (current) drug therapy; Z79.82 Long term (current) use of aspirin

== ENCOUNTER 2025-05-22 16:17 | Inpatient (IN) | payer MEDICARE, MEDICAID ==
[~2025-05-22] VITALS: Ht 172.7 cm; Wt 98.1 kg
[~2025-05-22 16:17] MED LIST changes: +ASPI81TAEC PO; +BISA10SU27 PR; +CLOP75TA2 PO; +FURO40TA2 PO; +MAGN400T2 PO; +MOME0.1C3 TOP; +NYST1POW3 TOP
[2025-05-22] MEDS ORDERED: BISACODYL 10 MG SUPP PR PRN (16:25)
[2025-05-22] MEDS ORDERED: HYDROCORTISONE 1% CREAM 30 GM TOP PRN (16:25)
[2025-05-22] MEDS ORDERED: ALBUTEROL 90 MCG/ACT 8 GM HFA INHALER INH PRN (16:25)
[2025-05-22 18:22] VITALS: BP 108/64; TEMP 99; O2SAT 94
[2025-05-22] MEDS: SYMBICORT 160/4.5MCG INHALER 6GM INH SCH (20:02)
[2025-05-22] MEDS: ATORVASTATIN 20 MG TAB PO SCH (20:18)
[2025-05-22] MEDS: RAMELTEON 8 MG TAB PO SCH (20:18)
[2025-05-22] MEDS: DOCUSATE SODIUM 100 MG CAPSULE PO SCH (20:18)
[2025-05-22] MEDS: SENNA 8.6 MG TAB PO SCH (20:18)
[2025-05-22] MEDS: CETIRIZINE 10 MG TAB PO SCH (20:18)
[2025-05-22] MEDS: GABAPENTIN 400 MG CAP PO SCH (20:18)
[2025-05-22] MEDS: DIVALPROEX 500 MG TAB PO SCH (20:27)
[2025-05-22] MEDS: NYSTATIN 100,000 UNITS/GM TOPICAL PWD 15 GM TOP SCH (20:27)
[2025-05-23 04:00] VITALS: BP 114/58; TEMP 97.6; O2SAT 97
[2025-05-23] MEDS: LEVOTHYROXINE 137 MCG TABLET (0.137 MG) PO SCH (05:30)
[2025-05-23 07:10] LABS: BASO # 0.1 10^3/uL (0.0-0.2); BASO % 0.6 % (0.0-1.0); EOS # 0.2 10^3/uL (0.0-0.5); EOS % 2.2 % (0.0-3.0); LYMPH # 1.6 10^3/uL (1.5-5.0); LYMPH % 20.1 % (24.0-44.0); MONO # 0.6 10^3/uL (0.0-0.8); MONO % 8.0 % (2.0-8.0); NEUTROPHILS # 5.4 10^3/uL (1.5-8.5); NEUTROPHILS % 68.8 % (36.0-66.0); PLATELET COUNT, AUTOMATED 172 10^3/uL (150-450)
[2025-05-23 07:54] LABS: ALT/SGPT 24 U/L (7.0-40); AST/SGOT 23 U/L (<34); CALCIUM LEVEL 9.7 MG/DL (8.3-10.6); CARBON DIOXIDE LEVEL 35 MMOL/L (20-31); CHLORIDE LEVEL 103 MMOL/L (98-107); CREATININE FOR GFR 0.67 MG/DL (0.55-1.30); GLOMERULAR FILTRATION RATE > 90.0 (>45); POTASSIUM SERUM 3.4 MMOL/L (3.5-5.1); SODIUM LEVEL 147 MMOL/L (136-145)
[2025-05-23] MEDS: MIRALAX *UNIT DOSE* 17 GM PACKET PO SCH (09:00)
[2025-05-23] MEDS: PRENATAL VITAMINS CHEWABLE TABLET PO SCH (09:30)
[2025-05-23] MEDS: ASPIRIN 81 MG ENTERIC TABLET PO SCH (09:30)
[2025-05-23] MEDS: FOLIC ACID 1 MG TAB PO SCH (09:31)
[2025-05-23] MEDS: CYANOCOBALAMIN 500 MCG TAB PO SCH (09:31)
[2025-05-23] MEDS: CLOPIDOGREL 75 MG TAB PO SCH (09:31)
[2025-05-23] MEDS: MAGNESIUM OXIDE 400 MG TAB PO SCH (09:31)
[2025-05-23] MEDS: FUROSEMIDE 40 MG TAB PO SCH (09:32)
[2025-05-23 11:48] VITALS: BP 99/58; TEMP 98.4; O2SAT 95
[2025-05-23] MEDS: ACETAMINOPHEN 325 MG TAB PO PRN (11:55)
[2025-05-23] MEDS: BISACODYL 5 MG TAB PO PRN (12:33)
[2025-05-23] MEDS: EXCEDRIN MIGRAINE TABLET PO PRN (14:55)
[2025-05-23] MEDS: GABAPENTIN 300 MG CAP PO SCH (16:43)
[2025-05-23 20:00] VITALS: BP 143/86; TEMP 97.1; O2SAT 90
[2025-05-23] MEDS ORDERED: ENTER DRUG NAME HERE (PATIENT'S OWN MED) PO SCH (21:00)
[2025-05-24 04:00] VITALS: BP 117/86; TEMP 97; O2SAT 92
[2025-05-24] MEDS: MULTIVITAMINS/MINERALS THERAP 1 TAB PO SCH (08:10)
[2025-05-24] MEDS: UNRESOLVED PATIENT OWN MED ORDER XX SCH (09:00)
[2025-05-24] MEDS ORDERED: BISACODYL 5 MG TAB PO ONE (11:00)
[2025-05-24 12:00] VITALS: BP 138/75; TEMP 97.7; O2SAT 95
[2025-05-24] MEDS: SENNA 8.6 MG TAB PO ONE (12:03)
[2025-05-24] MEDS: BISACODYL 5 MG TAB PO ONE (12:03)
[2025-05-24] MEDS: TOPIRAMATE 25 MG TAB PO ONE (13:26)
[2025-05-24 20:00] VITALS: BP 141/75; TEMP 96.9; O2SAT 92
[2025-05-24] MEDS: TOPIRAMATE 25 MG TAB PO SCH (20:09)
[2025-05-25 00:05] VITALS: O2SAT 93
[2025-05-25 04:00] VITALS: BP 143/70; TEMP 98; O2SAT 93
[2025-05-25 12:00] VITALS: BP 125/68; TEMP 98.1; O2SAT 94
[2025-05-25] MEDS ORDERED: NURTEC 75 MG PO PRN (14:20)
[2025-05-25 20:00] VITALS: BP 104/81; TEMP 97.3; O2SAT 98
[2025-05-26 05:00] VITALS: BP 117/72; TEMP 98.7; O2SAT 97
[2025-05-26 11:49] VITALS: BP 120/65; TEMP 97.6; O2SAT 91
[2025-05-26 20:00] VITALS: BP 117/63; TEMP 97; O2SAT 96
[2025-05-26] MEDS: ONDANSETRON 4MG ORAL DISINTEGRATING TAB PO PRN (22:21)
[2025-05-26] MEDS: AMITRIPTYLINE 25 MG TABLET PO SCH (22:22)
[2025-05-27 04:00] VITALS: BP 124/82; TEMP 97.1; O2SAT 96
[2025-05-27 12:35] VITALS: BP 109/68; TEMP 97.6; O2SAT 92
[2025-05-27 20:00] VITALS: BP 104/58; TEMP 97.2; O2SAT 91
[2025-05-28 04:00] VITALS: BP 126/59; TEMP 99.1; O2SAT 91
[2025-05-28 11:51] VITALS: BP 110/53; TEMP 98.4; O2SAT 90
[2025-05-28 20:00] VITALS: BP 94/55; TEMP 97.6; O2SAT 93
[2025-05-29 04:00] VITALS: BP 135/77; TEMP 97.7; O2SAT 91
[2025-05-29 12:30] VITALS: BP 116/66; TEMP 97.4; O2SAT 93
[2025-05-29 20:00] VITALS: BP 161/72; TEMP 96.8; O2SAT 91
[2025-05-30 04:00] VITALS: BP 129/68; TEMP 96.9; O2SAT 93
[2025-05-30 12:03] VITALS: BP 120/77; TEMP 97.9; O2SAT 93
[2025-05-30 17:58] VITALS: BP 122/77; TEMP 96.9; O2SAT 94
[2025-05-30 20:00] VITALS: BP 154/71; TEMP 97; O2SAT 90
[2025-05-30] MEDS: MELATONIN 12 MG PO SCH (20:43)
[2025-05-31 04:00] VITALS: BP 129/70; TEMP 97.2; O2SAT 90
[2025-05-31 11:51] VITALS: BP 130/91; TEMP 97.6; O2SAT 91
[2025-05-31 20:00] VITALS: BP 102/78; TEMP 97.8; O2SAT 91
[2025-06-01 04:00] VITALS: BP 157/73; TEMP 97; O2SAT 90
[2025-06-01 11:44] VITALS: BP 120/89; TEMP 97.8; O2SAT 96
[2025-06-01 20:00] VITALS: BP 124/73; TEMP 97.7; O2SAT 95
[2025-06-02 04:00] VITALS: BP 133/67; TEMP 97.2; O2SAT 91
[2025-06-02 12:00] VITALS: BP_SYST 128; BP_SYST 134; BP_DIAS 63; BP_DIAS 64; TEMP 97.6; TEMP 97.7; O2SAT 96
[2025-06-02] MEDS ORDERED: PILL CUTTER 1 EACH XX PRN (13:10)
[2025-06-02 14:22] VITALS: BP 110/60; TEMP 97.9; O2SAT 94
[2025-06-02] MEDS: NURTEC 75 MG PO PRN (16:15)
[2025-06-02 19:19] VITALS: BP 134/77; TEMP 97; O2SAT 97
[2025-06-02] MEDS: MELATONIN 12 MG PO SCH (20:33)
[2025-06-03 03:49] VITALS: BP 112/70; TEMP 97.2; O2SAT 95
[2025-06-03 08:00] VITALS: BP 98/52; O2SAT 94
[2025-06-03 08:58] VITALS: BP 98/52
[2025-06-03 09:31] VITALS: BP 106/62
[2025-06-03 12:00] VITALS: BP 124/68; TEMP 96.9; O2SAT 95
[2025-06-03 20:00] VITALS: BP 126/92; TEMP 97; O2SAT 95
[2025-06-04 03:20] VITALS: BP 114/68; TEMP 97.1; O2SAT 96
[2025-06-04 12:00] VITALS: BP 131/70; TEMP 96.9; O2SAT 94
[2025-06-04 20:00] VITALS: BP 124/61; TEMP 97.1; O2SAT 90
[2025-06-05 04:00] VITALS: BP 104/59; TEMP 97.1; O2SAT 94
[2025-06-05 11:40] VITALS: BP 111/71; TEMP 97.3; O2SAT 92
[2025-06-05 20:00] VITALS: BP 131/60; TEMP 97; O2SAT 93
[2025-06-05] MEDS: MOM 30 ML SUSPENSION UDC PO PRN (20:25)
[2025-06-05] MEDS: MELATONIN 12 MG PO PRN (20:31)
[2025-06-06 03:03] VITALS: BP 102/72; TEMP 97; O2SAT 95
[2025-06-06 04:01] LABS: BASO # 0.1 10^3/uL (0.0-0.2); BASO % 1.1 % (0.0-1.0); EOS # 0.1 10^3/uL (0.0-0.5); EOS % 2.4 % (0.0-3.0); LYMPH # 1.7 10^3/uL (1.5-5.0); LYMPH % 31.0 % (24.0-44.0); MONO # 0.5 10^3/uL (0.0-0.8); MONO % 9.4 % (2.0-8.0); NEUTROPHILS # 3.0 10^3/uL (1.5-8.5); NEUTROPHILS % 55.9 % (36.0-66.0); PLATELET COUNT, AUTOMATED 221 10^3/uL (150-450)
[2025-06-06 04:13] LABS: INR 0.89
[2025-06-06 04:30] LABS: ALT/SGPT 28 U/L (7.0-40); AST/SGOT 20 U/L (<34); CALCIUM LEVEL 9.3 MG/DL (8.3-10.6); CARBON DIOXIDE LEVEL 32 MMOL/L (20-31); CHLORIDE LEVEL 103 MMOL/L (98-107); CREATININE FOR GFR 0.67 MG/DL (0.55-1.30); GLOMERULAR FILTRATION RATE > 90.0 (>45); MAGNESIUM LEVEL 2.3 MG/DL (1.8-2.4); POTASSIUM SERUM 3.3 MMOL/L (3.5-5.1); SODIUM LEVEL 145 MMOL/L (136-145)
[2025-06-06] MEDS: POLYVINYL ALCOHOL OPHTH SOLN 15ML (LIQUITEARS) OU PRN (05:05)
[2025-06-06] MEDS: POTASSIUM CHLORIDE 10MEQ SR TABLET PO SCH (05:05)
[2025-06-06 08:03] LABS: PLATELET COUNT, AUTOMATED 229 10^3/uL (150-450)
[2025-06-06 12:00] VITALS: BP 125/59; TEMP 97.6; O2SAT 94
[2025-06-06 20:00] VITALS: BP 123/75; TEMP 97.5; O2SAT 92
[2025-06-07 04:00] VITALS: BP 138/70; TEMP 97.1; O2SAT 97
[2025-06-07 05:00] VITALS: O2SAT 94
[2025-06-07 07:25] VITALS: BP 144/67
[2025-06-07 12:00] VITALS: BP 117/65; TEMP 97.1; O2SAT 91
[2025-06-07 19:30] VITALS: BP 123/68; TEMP 97.5; O2SAT 96
[2025-06-08 03:33] VITALS: BP 130/71; TEMP 97.7; O2SAT 93
[2025-06-08 07:34] LABS: CALCIUM LEVEL 9.4 MG/DL (8.3-10.6); CARBON DIOXIDE LEVEL 27 MMOL/L (20-31); CHLORIDE LEVEL 108 MMOL/L (98-107); CREATININE FOR GFR 0.62 MG/DL (0.55-1.30); GLOMERULAR FILTRATION RATE > 90.0 (>45); POTASSIUM SERUM 4.8 MMOL/L (3.5-5.1); SODIUM LEVEL 143 MMOL/L (136-145)
[2025-06-08 12:00] VITALS: BP 119/91; TEMP 96.9; O2SAT 94
[2025-06-08 20:00] VITALS: BP 96/69; TEMP 96.9; O2SAT 94
[2025-06-09 04:00] VITALS: BP 128/68; TEMP 97.2; O2SAT 92
[2025-06-09 12:00] VITALS: BP 136/67; TEMP 97.2; O2SAT 92
[2025-06-09 20:00] VITALS: BP 121/56; TEMP 97.5; O2SAT 96
[2025-06-10 04:00] VITALS: BP 128/64; TEMP 97; O2SAT 94
[2025-06-10 12:33] VITALS: BP 117/78; TEMP 97.9; O2SAT 96
[2025-06-10 20:04] VITALS: BP 126/68; TEMP 97.5; O2SAT 94
[2025-06-11 04:04] VITALS: BP 133/62; TEMP 97.2; O2SAT 95
[2025-06-11] MEDS: NYSTATIN 100,000 UNITS/GM TOPICAL PWD 15 GM TOP PRN (08:40)
[2025-06-11 12:30] VITALS: BP 99/72; TEMP 97.8; O2SAT 92
[2025-06-11 20:00] VITALS: BP 120/83; TEMP 97.1; O2SAT 93
[2025-06-12 04:00] VITALS: BP 133/77; TEMP 97.1; O2SAT 92
[2025-06-12 12:00] VITALS: BP 118/71; TEMP 97.5; O2SAT 95
[2025-06-12] MEDS ORDERED: GABA-1172 PO (17:05)
[2025-06-12] MEDS ORDERED: CLOP75TA2 PO (17:05)
[2025-06-12] MEDS ORDERED: PRED20TA PO (17:05)
[2025-06-12] MEDS ORDERED: DOXY100T PO (17:05)
[2025-06-12] MEDS: DOXYCYCLINE HYCLATE 100 MG TABLET PO ONE (17:09)
[2025-06-12 19:46] VITALS: BP 130/64; TEMP 97.9; O2SAT 93
[2025-06-12] MEDS: DOXYCYCLINE HYCLATE 100 MG TABLET PO SCH (20:47)
[2025-06-13 03:00] VITALS: BP 123/70; TEMP 97.9; O2SAT 93
[2025-06-13 12:00] VITALS: BP 112/72; TEMP 97; O2SAT 96
== END 2025-06-13 15:00 | disposition home health service (06) | DRG 57 ==
LOC: M PM&R 18:22
PROVIDERS: ADMIT Physical Medicine & Rehabilitation; ATTEND Physical Medicine & Rehabilitation
DX: I69.354 Hemiplegia and hemiparesis following cerebral infarction affecting left non-dominant side (principal); L03.113 Cellulitis of right upper limb; E87.0 Hyperosmolality and hypernatremia; J44.9 Chronic obstructive pulmonary disease, unspecified; M81.0 Age-related osteoporosis without current pathological fracture; F32.A Depression, unspecified; Z91.041 Radiographic dye allergy status; Z88.5 Allergy status to narcotic agent; Z91.040 Latex allergy status; F17.210 Nicotine dependence, cigarettes, uncomplicated; G43.909 Migraine, unspecified, not intractable, without status migrainosus; E78.5 Hyperlipidemia, unspecified; B37.2 Candidiasis of skin and nail; E66.9 Obesity, unspecified; Z68.34 Body mass index [BMI] 34.0-34.9, adult; K59.00 Constipation, unspecified; I10 Essential (primary) hypertension; E03.9 Hypothyroidism, unspecified; G47.00 Insomnia, unspecified; G89.29 Other chronic pain; G40.909 Epilepsy, unspecified, not intractable, without status epilepticus; R32 Unspecified urinary incontinence; Z66 Do not resuscitate; Z79.899 Other long term (current) drug therapy; Z79.82 Long term (current) use of aspirin; Z79.890 Hormone replacement therapy; M31.6 Other giant cell arteritis